=== PATIENT | female | born 1965 | race Caucasian/White ===

== ENCOUNTER → 2016-09-01 | Outpatient (REF) | payer OTHER | LOC: M LAB REF 16:08 | PROVIDERS: ATTEND Physician Assistant | DX: R30.0 Dysuria (principal) ==

== ENCOUNTER → 2016-09-01 | Outpatient (CLI) | payer OTHER ==
--- NOTE | 2016-09-09 00:50 | ECWPNPC ---
PATIENT NAME: ALEJANDRINA VÁZQUEZ : 1965 GENDER: FEMALE VISIT DATE: 09/01/2016 DISCHARGE DATE: 09/01/16 1015 VISIT LOCKED DATE TIME: PHYSICIAN: BERHANE BURDICK RESOURCE: BERHANE BURDICK REASON FOR APPOINTMENT 1. LOW BACK PAIN HISTORY OF PRESENT ILLNESS HISTORY OF PRESENT ILLNESS: PAIN THE PATIENT DESCRIBES THE PAIN... 51 YEAR OLD FEMALE PATIENT WITH HISTORY OF CHRONIC LOW BACK PAIN. PATIENT DESCRIBES THE PAIN ACHING, BURNING, STABBING, THROBBING, SORE, SHOOTING, AND HAVING IT ALL THE TIME WITH A PAIN SCORE OF 8-9/10. PATIENT RECEIVED A SACROILIAC JOINT INJECTION ON 06/21/16 AND STATES THAT THE INJECTION ONLY HELPED THE PATIENT FOR A FEW DAYS AND THE PAIN RETURNED. MRS. VÁZQUEZ REPORTS HAVING SEVERE PAIN IN THE HIP AND DOWN THE LEGS WHICH THE TRANSFORAMINAL HAD HELPED TO REDUCE THAT PAIN. CURRENTLY THE PATIENT IS USING GABAPENTIN AND TIZANIDINE WHICH SHE STATES HELPS WITH PAIN MANAGEMENT. PATIENT HAD A SCRIPT OF 20 TABLETS OF HYDROCODONE WHICH SHE HAD RAN OUT OF SO SHE HAS NOT BEEN USING IT FOR A FEW WEEKS. MRS. VÁZQUEZ STATES THAT PHYSICAL ACTIVITY INCREASES THE PAIN IN HER BACK AND AT THIS TIME THE ONLY THING THAT HELPS WITH THE PAIN IS MEDICATION MANAGEMENT. PATIENT DENIES UNEXPLAINABLE WEIGHT LOSS, FEVER, CHILLS, NEW CHANGES ON HER URINARY OR BOWEL CONTROL. FALL RISK SCREENING: SCREENING :NO FALLS IN THE PAST YEAR CURRENT MEDICATIONS TAKING HYDROCODONE-ACETAMINOPHEN 5-325 MG TABLET 1 TABLET NEEDED ORALLY EVERY DAY FOR PAIN MDD1 TAKING GABAPENTIN 300 MG CAPSULE 1 CAPSULE ORALLY FOUR TIMES DAILY TAKING TIZANIDINE HCL 2 MG TABLET 1 TO 2 TABLET NEEDED ORALLY BEFORE BEDTIME TAKING METROGEL 1 % GEL 1 APPLICATION TO AFFECTED AREA EXTERNALLY FACE ONCE A DAY TAKING VITAMIN D 2000 UNIT TABLET 1 CAPSULE ORALLY ONCE A DAY TAKING PROTOPIC 0.03 % OINTMENT 1 APPLICATION TO AFFECTED AREA EXTERNALLY FINGERS ARMS TWICE A DAY TAKING CLOBETASOL PROPIONATE 0.05 % CREAM 1 APPLICATION TO AFFECTED AREA EXTERNALLY FINGERS ARMS TWICE A DAY NEEDED FOR FLARE-UPS TAKING EPIPEN 1 MG/ML DEVICE DIRECTED INTRAMUSCULAR NEEDED TAKING ALBUTEROL SULFATE HFA 108 (90 BASE) MCG/ACT AEROSOL SOLUTION 2 PUFFS INHALATION FOUR TIMES A DAY NEEDED TAKING MULTIVITAL NATIVE - TABLET 2 CAP ORALLY ONCE DAILY TAKING FOLIC ACID 800 MCG TABLET 1 TABLET ORALLY ONCE A DAY TAKING VITAMIN B12 100 MCG TABLET ORALLY 500 MG ONCE DAILY TAKING CALCIUM CITRATE 250 MG TABLET 4 TABLETS ORALLY 2 TABS AT LUNCH AND 2 TABS AT DINNER TAKING TYLENOL 8 HOUR 650 MG TABLET EXTENDED RELEASE 2 TABLETS NEEDED ORALLY EVERY 8 HRS MEDICATION LIST REVIEWED AND RECONCILED WITH THE PATIENT PAST MEDICAL HISTORY ASTHMA (INACTIVE SINCE CHILDHOOD) ATOPIC DERMATITIS BACK PAIN ALLERGIC RHINITIS, CAUSE UNSPECIFIED OBESITY, UNSPECIFIED UNSPECIFIED SINUSITIS (CHRONIC) UNSPECIFIED VITAMIN D 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 HOSPITALIZATION/MAJOR DIAGNOSTIC PROCEDURE HOSPITALIZATIONS RELATED TO SURGERY AND CHILDBIRTH REVIEW OF SYSTEMS CONSTITUTIONAL: ANY CHANGE IN YOUR MEDICAL CONDITION? NO . CHILLS NO . FEVER NO . INFECTION: DO YOU HAVE NEW INFECTIONS? NO . DO YOU HAVE HISTORY OF MRSA? NO . MUSCULOSKELETAL: ANY NEW PATTERNS OF PAIN OR NUMBNESS? NO . GASTROENTEROLOGY: ANY NEW CHANGE IN BOWEL CONTROL? NO . GENITOURINARY: ANY NEW CHANGE IN BLADDER CONTROL? YES, POSSIBLE UTI AND SEEING DOCTOR TODAY FOR THAT . IS THERE A CHANCE YOU COULD BE ? NO . HEMATOLOGY/LYMPH: DO YOU TAKE ANY BLOOD THINNERS? (FOR EXAMPLE- COUMADIN, PLAVIX, AGGRENOX, PLATEL, PRADAXA, OR XARELTO) NO . WHEN WAS YOUR LAST DOSE? DATE: TIME: . NEUROLOGY: HAVE YOU FALLEN IN THE PAST 6 MONTHS? NO . ANY NEW EXTREMITY NUMBNESS OR WEAKNESS? NO . CARDIOLOGY: DO YOU HAVE A PACEMAKER OR DEFIBRILLATOR? NO . RESPIRATORY: HAVE YOU BEEN SICK IN THE PAST WEEK? NO . FEVER NO . FLU LIKE SYMPTOMS? NO . COUGH NO . INTEGUMENTARY: DO YOU HAVE ANY RASHES OR OPEN SORES? NO . ALLERGIC/IMMUNO: ARE YOU ALLERGIC TO SHELLFISH OR IV DYE? NO . ANY NEW ALLERGIES? NO . PSYCHIATRIC: DO YOU HAVE THOUGHTS OF HURTING YOURSELF OR SOMEONE ELSE? NO . ARE YOU ABUSED, NEGLECTED, OR IN AN UNSAFE ENVIRONMENT? NO . ENDOCRINOLOGY: ARE YOU DIABETIC? YES . OTHER: DO YOU NEED ANY PRESCRIPTIONS? YES . IF YES, PLEASE LIST: HYDROCODONE- BEEN OUT FOR OVER A MONTH- 6 WEEKS PLUS THE PAIN HAS GRADUALLY INTENSIFIED . ANY NEW PROBLEMS WITH YOUR MEDICATIONS? NO . WHEN DID YOU LAST EAT? ____ . WHEN DID YOU LAST DRINK? ____ . WHAT DID YOU LAST DRINK? ____ . NAME OF PERSON DRIVING YOU HOME? ____ . DO YOU HAVE ANY OTHER QUESTIONS OR CONCERNS NO . REVIEWED BY: PROVIDER: BERHANE BURDICK MD . VITAL SIGNS WT 126 LBS, HT 64 IN, BMI 21.63 INDEX, BP 147/75 MM HG, HR 103 /MIN, RR 16 /MIN, TEMP 96.0 F, OXYGEN SAT % 96, NA INITIALS TL 0930, REVIEWED BY: CS. EXAMINATION : PATIENT IS ALERT O X 3 AND COOPERATIVE. TENDERNESS IN THE LOWER BACK AND PARASPINAL MUSCLE GROUP. TENDERNESS IN THE RIGHT SACROILIAC JOINT AREA. MRI DONE ON 09/25/14 SHOWS A LAMINECTOMY AT L5-S1. 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 VÁZQUEZ'S PAIN MANAGEMENT CASE. AT THIS TIME THE PATIENT WILL CONTINUE WITH THE SAME MEDICATION REGIME BEFORE. PATIENT DENIES ABUSE OF ANY MEDICATION, DENIES USE OF ILLEGAL SUBSTANCES, AND STATES SHE IS ONLY USING THE MEDICATION FOR PAIN MANAGEMENT. PATIENT WAS ADVISED TO BRING ALL THE MEDICATIONS TO EACH VISIT IN THEIR ORIGINAL BOTTLES. PATIENT REPORTS ONLY HAVING A BRIEF PERIOD OF PAIN RELIEF FROM THE SACROILIAC JOINT BLOCK. HOWEVER, THE TRANSFORAMINAL THE PATIENT RECEIVED HELPED SIGNIFICANTLY WITH THE PATIENT HIP AND LEG PAIN. I AM GOING TO REQUEST AUTHORIZATION FOR ANOTHER TRANSFORAMINAL AND BOOK AFTER APPROVAL. WE DISCUSSED THE RISKS, BENEFITS, AND ALTERNATIVES OF THE INJECTION AND THE PATIENT WOULD LIKE TO PROCEED. I, EWELINA JOSEPH, DOCUMENTED THE ABOVE INFORMATION ACTING A SCRIBE FOR DR. BURDICK. I, DR. BURDICK, HAVE REVIEWED THE ABOVE DOCUMENT, SCRIBED BY EWELINA JOSEPH, AND I VERIFY THAT IT IS ACCURATE. PROCEDURE CODES FA211 ESTABILISHED PATIENT [facility] CHARGE G8427 DOC MEDS VERIFIED W/PT OR RE G8730 PAIN ASSESS POS TOOL F/U PLAN DOC FOLLOW UP TRANSFORAMINAL AFTER APPROVAL ELECTRONICALLY SIGNED BY BERHANE BURDICK MD ON 09/08/2016 AT 02:29 PM EST DISCLAIMER : THIS IS A VISIT SUMMARY EXTRACTED FROM THE [employer] CHART. IT IS NOT A COPY OF THE [employer] PROGRESS NOTE. VIV
== END ==
LOC: M PAIN 09:00
PROVIDERS: ATTEND Anesthesiology
DX: Z09 Encounter for follow-up examination after completed treatment for conditions other than malignant neoplasm (principal); G89.29 Other chronic pain; M96.1 Postlaminectomy syndrome, not elsewhere classified; M51.16 Intervertebral disc disorders with radiculopathy, lumbar region; M51.17 Intervertebral disc disorders with radiculopathy, lumbosacral region; J30.89 Other allergic rhinitis; E55.9 Vitamin D deficiency, unspecified; R01.1 Cardiac murmur, unspecified; E11.9 Type 2 diabetes mellitus without complications; Z88.8 Allergy status to other drugs, medicaments and biological substances; Z91.018 Allergy to other foods; Z79.891 Long term (current) use of opiate analgesic; Z79.899 Other long term (current) drug therapy

== ENCOUNTER → 2016-09-14 | Outpatient (CLI) | payer BC, OTHER ==
[~2016-09-14] MED LIST: BUPIVACAINE HCL 0.25% 30 ML VIAL As Ordered ONE; ISOVUE-M 300 61% 15ML VIAL (Q9967) As Ordered ONE; LIDOCAINE 1% SDV INJ 30 ML VIAL As Ordered ONE; MIDAZOLAM INJ 2 MG/2 ML VIAL (J2250) As Ordered ONE; dexameTHASONE 10 MG/1 ML VIAL PRES.FREE (J1100) As Ordered ONE; fentaNYL 100 MCG/2 ML INJECTION (J3010) As Ordered ONE
--- NOTE | 2016-09-14 17:15 | REP ---
Partial lumbar spine series: 195 views: History: Transforaminal block for pain. 52 seconds of fluoroscopy time is reported. Findings: A sequence of 195 fluoroscopically obtained intraprocedural spot radiographs document needle position and contrast injection associated with transforaminal block procedure. Signed by Junaid Moncada MD 09/15/2016 08:29 A
--- NOTE | 2016-09-20 23:53 | ECWPNPC ---
PATIENT NAME: ALEJANDRINA VÁZQUEZ : 1965 GENDER: FEMALE VISIT DATE: 09/14/2016 DISCHARGE DATE: 09/14/16 1653 VISIT LOCKED DATE TIME: PHYSICIAN: BERHANE BURDICK RESOURCE: BERHANE BURDICK REASON FOR APPOINTMENT 1. TRANSFORAMINAL HISTORY OF PRESENT ILLNESS HISTORY OF PRESENT ILLNESS: PAIN THE PATIENT DESCRIBES THE PAIN... FALL RISK SCREENING: SCREENING :NO FALLS IN THE PAST YEAR CURRENT MEDICATIONS TAKING GABAPENTIN 300 MG CAPSULE 1 CAPSULE ORALLY FOUR TIMES DAILY FOR PAIN MDD4, NOTES: 09/13/16 AT 2300 TAKING TIZANIDINE HCL 2 MG TABLET 1-2 TABLET NEEDED ORALLY FOR SPASMS AND PAIN BEFORE BEDTIME, NOTES: 09/13/16 AT 2300 TAKING HYDROCODONE-ACETAMINOPHEN 5-325 MG TABLET 1 TABLET NEEDED ORALLY Q5H PRN MDD2, NOTES: 09/13/16 AT 2300 TAKING METROGEL 1 % GEL 1 APPLICATION TO AFFECTED AREA EXTERNALLY FACE ONCE A DAY, NOTES: MONTHS AGO TAKING VITAMIN D 2000 UNIT TABLET 1 CAPSULE ORALLY ONCE A DAY, NOTES: AT 0630 TAKING PROTOPIC 0.03 % OINTMENT 1 APPLICATION TO AFFECTED AREA EXTERNALLY FINGERS ARMS TWICE A DAY, NOTES: MONTHS AGO TAKING CLOBETASOL PROPIONATE 0.05 % CREAM 1 APPLICATION TO AFFECTED AREA EXTERNALLY FINGERS ARMS TWICE A DAY NEEDED FOR FLARE-UPS, NOTES: MONTHS AGO TAKING EPIPEN 1 MG/ML DEVICE DIRECTED INTRAMUSCULAR NEEDED, NOTES: YEARS AGO TAKING ALBUTEROL SULFATE HFA 108 (90 BASE) MCG/ACT AEROSOL SOLUTION 2 PUFFS INHALATION FOUR TIMES A DAY NEEDED, NOTES: NEVER USED TAKING MULTIVITAL [place] TRIBE - TABLET 2 CAP ORALLY ONCE DAILY, NOTES: 09/14/16 AT 0630 TAKING VITAMIN B12 100 MCG TABLET ORALLY 500 MG ONCE DAILY, NOTES: 09/14/16 AT 0630 TAKING CALCIUM CITRATE 250 MG TABLET 4 TABLETS ORALLY 2 TABS AT LUNCH AND 2 TABS AT DINNER, NOTES: 09/14/16 AT 1800 TAKING TYLENOL 8 HOUR 650 MG TABLET EXTENDED RELEASE 2 TABLETS NEEDED ORALLY EVERY 8 HRS, NOTES: MONTH AGO TAKING LEVOTHYROXINE SODIUM 25 MCG TABLET 1 TABLET ON AN EMPTY STOMACH IN THE MORNING ORALLY ONCE A DAY, NOTES: 09/14/16 AT 0530 NOT-TAKING FOLIC ACID 800 MCG TABLET 1 TABLET ORALLY ONCE A DAY MEDICATION LIST REVIEWED AND RECONCILED WITH THE PATIENT PAST MEDICAL HISTORY ASTHMA (INACTIVE SINCE CHILDHOOD) ATOPIC DERMATITIS BACK PAIN ALLERGIC RHINITIS, CAUSE UNSPECIFIED OBESITY, UNSPECIFIED UNSPECIFIED SINUSITIS (CHRONIC) UNSPECIFIED VITAMIN D 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 NEW PATIENT PAIN DIARY TODAY'S VISITNOTES FROM 0-10, WHAT LEVEL IS YOUR PAIN TODAY?0 PAIN CLINIC PFS, CLERGY, PUBLIC HEALTH REFERRALS PFS REFERRAL NEEDED?NO CLERGY REFERRAL NEEDED?NO PUBLIC HEALTH REFERRAL NEEDED?NO WAS THE PROVIDER NOTIFIED OF ANY PERTINENT INFO?NO PFS REFERRAL NEEDED?NO CLERGY REFERRAL NEEDED?NO PUBLIC HEALTH REFERRAL NEEDED?NO WAS THE PROVIDER NOTIFIED OF ANY PERTINENT INFO?NO REVIEW OF SYSTEMS CONSTITUTIONAL: ANY CHANGE IN YOUR MEDICAL CONDITION? NO . CHILLS NO . FEVER NO . INFECTION: DO YOU HAVE NEW INFECTIONS? NO . DO YOU HAVE HISTORY OF MRSA? NO . MUSCULOSKELETAL: ANY NEW PATTERNS OF PAIN OR NUMBNESS? PT STATES THAT PAIN IS NOW RADIATING TO OUTSIDE OF LEG AND HIP AREA. . GASTROENTEROLOGY: ANY NEW CHANGE IN BOWEL CONTROL? NO . GENITOURINARY: ANY NEW CHANGE IN BLADDER CONTROL? NO . IS THERE A CHANCE YOU COULD BE ? NO . HEMATOLOGY/LYMPH: DO YOU TAKE ANY BLOOD THINNERS? (FOR EXAMPLE- COUMADIN, PLAVIX, AGGRENOX, PLATEL, PRADAXA, OR XARELTO) NO . WHEN WAS YOUR LAST DOSE? DATE: TIME: . NEUROLOGY: HAVE YOU FALLEN IN THE PAST 6 MONTHS? NO . ANY NEW EXTREMITY NUMBNESS OR WEAKNESS? NO . CARDIOLOGY: DO YOU HAVE A PACEMAKER OR DEFIBRILLATOR? NO . RESPIRATORY: HAVE YOU BEEN SICK IN THE PAST WEEK? NO . FEVER NO . FLU LIKE SYMPTOMS? NO . COUGH NO . INTEGUMENTARY: DO YOU HAVE ANY RASHES OR OPEN SORES? NO . ALLERGIC/IMMUNO: ARE YOU ALLERGIC TO SHELLFISH OR IV DYE? NO . ANY NEW ALLERGIES? NO . PSYCHIATRIC: DO YOU HAVE THOUGHTS OF HURTING YOURSELF OR SOMEONE ELSE? NO . ARE YOU ABUSED, NEGLECTED, OR IN AN UNSAFE ENVIRONMENT? NO . ENDOCRINOLOGY: ARE YOU DIABETIC? YES, PT STATES THAT SHE MANAGES BLOOD SUGAR WITH ORAL MEDS. . OTHER: DO YOU NEED ANY PRESCRIPTIONS? NO . IF YES, PLEASE LIST: ____ . ANY NEW PROBLEMS WITH YOUR MEDICATIONS? NO . WHEN DID YOU LAST EAT? 09/13/16 10:30PM . WHEN DID YOU LAST DRINK? 09/14/16 7AM . WHAT DID YOU LAST DRINK? WATER . NAME OF PERSON DRIVING YOU HOME? [employer] . DO YOU HAVE ANY OTHER QUESTIONS OR CONCERNS PT STATES THAT SHE CONSTANTLY HAS NIGHTLY LEG AND FOOT CRAMPS. DALY HORSES THAT WAKE HER UP AT NIGHT. . REVIEWED BY: PROVIDER: . VITAL SIGNS WT 127 LBS, HT 64 IN, BMI 21.80 INDEX, BP 118/58 MM HG, HR 56 /MIN, RR 16 /MIN, TEMP 94.7 F, OXYGEN SAT % 94%, NA INITIALS SC 15:02, REVIEWED BY: CS. ASSESSMENTS INTERVERTEBRAL DISC DISORDERS WITH RADICULOPATHY, LUMBOSACRAL REGION - M51.17 (PRIMARY) POSTLAMINECTOMY SYNDROME, NOT ELSEWHERE CLASSIFIED - M96.1 PROCEDURES PN LUMBAR TRANSFORAMINAL BLOCKS PRE PROCEDURE DIAGNOSIS LUMBOSACRAL DISC DISORDER WITH RADICULOPATHY POST PROCEDURE DIAGNOSIS LUMBOSACRAL DISC DISORDER WITH RADICULOPATHY PROCEDURE RIGHT L5 AND RIGHT S1 TRANSFORAMINAL EPIDURAL STEROID INJECTION UNDER FLUOROSCOPIC GUIDANCE SURGEON DR BERHANE BURDICK [facility] SECURITY OFFICER NONE ANESTHESIA LOCAL PRE PROCEDURE NOTE PATIENT WITH HISTORY OF CHRONIC LOW BACK PAIN. I EVALUATE THE PATIENT AND REVIEWED THE CHART. I WENT OVER THE RISKS, ALTERNATIVES, AND BENEFITS ASSOCIATED WITH THIS PROCEDURE. THE PATIENT WOULD LIKE TO PROCEED AND GIVE CONSENT TO PERFORMED THE PROCEDURE. THE PATIENT DENIES UNEXPLAINABLE WEIGHT LOSS, FEVER, CHILLS, OR CHANGES IN URINARY OR BOWEL CONTROL DESCRIPTION OF PROCEDURE THE PATIENT WAS BROUGHT TO THE PROCEDURE ROOM AND PLACED IN THE PRONE POSITION. THE LUMBOSACRAL AREA WAS CLEANED WITH BETADINE SOLUTION AND DRAPED ASEPTICALLY. THE PROCEDURE WAS DONE UNDER STERILE CONDITIONS. I CHECKED LATERALITY AND THE LEVEL WHERE THE PROCEDURE WAS GOING TO BE PERFORMED WITH THE PATIENT AND THE SUPPORTING STAFF AT THE MOMENT OF THE TIME OUT IN THE PROCEDURE ROOM. UNDER FLUOROSCOPIC GUIDANCE, TARGETS WERE SELECTED AT THE RIGHT TRANSFORAMINAL OPENING OF L5 AND S1. TARGET POINT WAS SELECTED AFTER LATERAL ROTATION AND TILT OF THE MAGNIFIER OF THE C-ARM. LIDOCAINE 0.5% WAS USED TO NUMB THE SKIN AND THE SUBCUTANEOUS TISSUE BELOW IT. AN EPIMED INTRODUCER 18-GAUGE WAS ADVANCED UNTIL WE WENT CLOSE TO THE SELECTED TRANSFORAMINAL OPENINGS. AFTER PROPER POSITION OF THE NEEDLES WAS ACHIEVED, A 22-GAUGE EPIMED NEEDLE WAS PLACED INSIDE OF THE INTRODUCER AND ADVANCED TO THE TRANSFORAMINAL OPENING OF THE SELECTED SITES. WHEN PROPER POSITION OF THE NEEDLE WAS ACHIEVED, ISOVUE M DYE 30%, 0.25 ML, WAS INJECTED SHOWING ADEQUATE SPREAD OF THE DYE. THIS WAS DONE UNDER DIGITAL SUBTRACTION AND ANGIOGRAPHY. THERE WAS NO VASCULAR UPDATE. THEN, A SOLUTION OF 2 ML OF BUPIVACAINE 0.25% AND DEXAMETHASONE 10 MG WAS INJECTED AT EACH SITE. THERE WAS NO EVIDENCE OF BLOOD, PARESTHESIA OR CEREBROSPINAL FLUID DURING THE PROCEDURE. THE PATIENT WAS SENT TO THE RECOVERY ROOM. THE PATIENT WAS MOVING THE EXTREMITIES AND DOING WELL. THERE WAS NO COMPLICATION DURING THE PROCEDURE. FLUOROSCOPY TIME WAS 52 SECONDS POST PROCEDURE NOTE THE PROCEDURE DONE WAS DISCUSSED WITH THE PATIENT. THE PATIENT WILL BE SEEN IN A FOLLOW UP IN THE NEXT FEW WEEKS. INSTRUCTIONS WERE GIVEN, QUESTIONS WERE ANSWERED, AND THE PATIENT EXPRESSED UNDERSTANDING AND AGREES WITH THE PLAN. INSTRUCTIONS WERE GIVEN, QUESTIONS WERE ANSWERED, PATIENT REPORTS UNDERSTANDING AND AGREES WITH THE PLAN. I, SP MORFIN, DOCUMENTED THE ABOVE INFORMATION ACTING A SCRIBE FOR DR. BURDICK. I HAVE REVIEWED THE ABOVE DOCUMENT, WRITTEN BY SP MORFIN SCRIBAltagracia AND I VERIFY THAT IT IS ACCURATE. DIAGNOSTIC [facility] FLUORO GUIDANCE (PAIN)[id number] PROCEDURE CODES 12039 INJ FORAMEN EPIDURAL L/S 91069 INJ FORAMEN EPIDURAL ADD-ON 6045F RADXPS IN END [id number] PXD FOLLOW UP 3 WEEKS ELECTRONICALLY SIGNED BY BERHANE BURDICK MD ON 09/20/2016 AT 09:37 PM EST DISCLAIMER : THIS IS A VISIT SUMMARY EXTRACTED FROM THE [employer] CHART. IT IS NOT A COPY OF THE [employer] PROGRESS NOTE. MTDD
== END ==
LOC: M PAIN 14:20
PROVIDERS: ATTEND Anesthesiology
DX: G89.29 Other chronic pain (principal); M51.17 Intervertebral disc disorders with radiculopathy, lumbosacral region; M96.1 Postlaminectomy syndrome, not elsewhere classified; J45.909 Unspecified asthma, uncomplicated; E55.9 Vitamin D deficiency, unspecified; E11.9 Type 2 diabetes mellitus without complications; Z91.018 Allergy to other foods; Z88.5 Allergy status to narcotic agent; Z79.891 Long term (current) use of opiate analgesic; Z79.899 Other long term (current) drug therapy
CPT/HCPCS: 64483; 64484; J1100; J2250; J3010; Q9967

== ENCOUNTER → 2016-09-19 | Outpatient (CLI) | payer BC ==
--- NOTE | 2016-09-19 08:22 | REPMRS ---
Patient History The patient states she had a clinical breast exam in 09/12 No known family history of cancer. Reductions of both breasts, 2002. Digital Woman Screen Mammo: September 19, 2016 - Exam #: [id number] Bilateral CC and MLO view(s) were taken. Technologist: Tri Be, Technologist Prior study comparison: October 07, 2015, digital woman screen mammo performed at [facility]. September 24, 2014, digital woman screen mammo performed at [facility]. September 09, 2013, digital woman screen mammo performed at [facility]. FINDINGS: There are scattered fibroglandular densities. There has been no change in the appearance of the mammogram from the prior studies. There is a mild amount of scattered fibroglandular density which is fairly symmetric. There is no interval development of dominant mass, architectural distortion, or clustered microcalcification suggestive of malignancy. ASSESSMENT: BI-RADS/ACR category 1 mammogram. Negative. Recommendation Routine screening mammogram in 1 year (for women over age 40). This mammogram was interpreted with the aid of an FDA-approved computer-aided dectection system. Electronically Signed By: Gurpreet Moncada MD 09/19/16 0822
== END ==
LOC: M WHC 07:10
PROVIDERS: ATTEND Obstetrics & Gynecology
DX: Z12.31 Encounter for screening mammogram for malignant neoplasm of breast (principal)

== ENCOUNTER → 2016-10-05 | Outpatient (CLI) | payer BC, OTHER ==
--- NOTE | 2016-10-15 00:05 | ECWPNPC ---
PATIENT NAME: ALEJANDRINA VÁZQUEZ : 1965 GENDER: FEMALE VISIT DATE: 10/05/2016 DISCHARGE DATE: 10/05/16 1039 VISIT LOCKED DATE TIME: PHYSICIAN: BERHANE BURDICK RESOURCE: BERHANE BURDICK REASON FOR APPOINTMENT 1. POST PROCEDURE HISTORY OF PRESENT ILLNESS HISTORY OF PRESENT ILLNESS: PAIN THE PATIENT DESCRIBES THE PAIN... 51 YEAR OLD FEMALE PATIENT WITH HISTORY OF CHRONIC BACK PAIN. PATIENT DESCRIBES THE PAIN ACHING, BURNING, SHARP, STABBING, TENDER, THROBBING, SORE, SHOOTING, AND HAVING IT ALL THE TIME WITH A PAIN SCORE OF 9/10 ON TODAY'S VISIT. PATIENT REPORTS THAT SHE HAS PAIN IN HER RIGHT LEG RADIATING FROM HER BACK. PATIENT RECEIVED A TRANSFORAMINAL ON 09/14/2016 AND STATES THAT THE INJECTION DID NOT PROVIDE ANY PAIN RELIEF. PATIENT REPORTS THAT WITH GABAPENTIN SHE DOES NOT LIKE TO TAKE IT DURING THE DAY IT MAKES HER FOGGY AND SLEEPY AND THE HYDROCODONE-ACETAMINOPHEN SHE TAKES AT NIGHT IT HELPS HER SLEEP. PATIENT STATES THAT SOMETIMES SHE DOES HAVE DIFFICULTIES SLEEPING THROUGH THE NIGHT THE PAIN WILL WAKE HER UP. PATIENT DENIES UNEXPLAINABLE WEIGHT LOSS, FEVER, CHILLS, NEW CHANGES ON HER URINARY OR BOWEL CONTROL. FALL RISK SCREENING: SCREENING :NO FALLS IN THE PAST YEAR CURRENT MEDICATIONS TAKING GABAPENTIN 300 MG CAPSULE 1 CAPSULE ORALLY FOUR TIMES DAILY FOR PAIN MDD4, NOTES: 09/13/16 AT 2300 TAKING TIZANIDINE HCL 2 MG TABLET 1-2 TABLET NEEDED ORALLY FOR SPASMS AND PAIN BEFORE BEDTIME, NOTES: 09/13/16 AT 2300 TAKING HYDROCODONE-ACETAMINOPHEN 5-325 MG TABLET 1 TABLET NEEDED ORALLY Q5H PRN MDD2, NOTES: 09/13/16 AT 2300 TAKING METROGEL 1 % GEL 1 APPLICATION TO AFFECTED AREA EXTERNALLY FACE ONCE A DAY, NOTES: MONTHS AGO TAKING VITAMIN D 2000 UNIT TABLET 1 CAPSULE ORALLY ONCE A DAY, NOTES: AT 0630 TAKING PROTOPIC 0.03 % OINTMENT 1 APPLICATION TO AFFECTED AREA EXTERNALLY FINGERS ARMS TWICE A DAY, NOTES: MONTHS AGO TAKING CLOBETASOL PROPIONATE 0.05 % CREAM 1 APPLICATION TO AFFECTED AREA EXTERNALLY FINGERS ARMS TWICE A DAY NEEDED FOR FLARE-UPS, NOTES: MONTHS AGO TAKING EPIPEN 1 MG/ML DEVICE DIRECTED INTRAMUSCULAR NEEDED, NOTES: YEARS AGO TAKING ALBUTEROL SULFATE HFA 108 (90 BASE) MCG/ACT AEROSOL SOLUTION 2 PUFFS INHALATION FOUR TIMES A DAY NEEDED, NOTES: NEVER USED TAKING MULTIVITAL [place] - TABLET 2 CAP ORALLY ONCE DAILY, NOTES: 09/14/16 AT 0630 TAKING VITAMIN B12 100 MCG TABLET ORALLY 500 MG ONCE DAILY, NOTES: 09/14/16 AT 0630 TAKING CALCIUM CITRATE 250 MG TABLET 4 TABLETS ORALLY 2 TABS AT LUNCH AND 2 TABS AT DINNER, NOTES: 09/14/16 AT 1800 TAKING TYLENOL 8 HOUR 650 MG TABLET EXTENDED RELEASE 2 TABLETS NEEDED ORALLY EVERY 8 HRS, NOTES: MONTH AGO TAKING LEVOTHYROXINE SODIUM 25 MCG TABLET 1 TABLET ON AN EMPTY STOMACH IN THE MORNING ORALLY ONCE A DAY, NOTES: 09/14/16 AT 0530 NOT-TAKING FOLIC ACID 800 MCG TABLET 1 TABLET ORALLY ONCE A DAY MEDICATION LIST REVIEWED AND RECONCILED WITH THE PATIENT PAST MEDICAL HISTORY ASTHMA (INACTIVE SINCE CHILDHOOD) ATOPIC DERMATITIS BACK PAIN ALLERGIC RHINITIS, CAUSE UNSPECIFIED OBESITY, UNSPECIFIED UNSPECIFIED SINUSITIS (CHRONIC) UNSPECIFIED VITAMIN D 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 SOCIAL HISTORY GENERAL: TOBACCO USE ARE YOU A:NONSMOKER LEARNING BARRIERS / SPECIAL NEEDS ORIENTED TO PLAN OF CARE: PATIENT, PAIN MANAGEMENT PATIENT, ORIENTED TO PLAN OF CARE: PATIENT, PAIN MANAGEMENT PATIENT. NEW PATIENT PAIN DIARY TODAY'S VISITNOTES FROM 0-10, WHAT LEVEL IS YOUR PAIN TODAY?0 PAIN CLINIC PFS, CLERGY, PUBLIC HEALTH REFERRALS PFS REFERRAL NEEDED?NO CLERGY REFERRAL NEEDED?NO PUBLIC HEALTH REFERRAL NEEDED?NO WAS THE PROVIDER NOTIFIED OF ANY PERTINENT INFO?NO PFS REFERRAL NEEDED?NO CLERGY REFERRAL NEEDED?NO PUBLIC HEALTH REFERRAL NEEDED?NO WAS THE PROVIDER NOTIFIED OF ANY PERTINENT INFO?NO HOSPITALIZATION/MAJOR DIAGNOSTIC PROCEDURE HOSPITALIZATIONS RELATED TO SURGERY AND CHILDBIRTH REVIEW OF SYSTEMS CONSTITUTIONAL: ANY CHANGE IN YOUR MEDICAL CONDITION? NO . CHILLS NO . FEVER NO . INFECTION: DO YOU HAVE NEW INFECTIONS? NO . DO YOU HAVE HISTORY OF MRSA? NO . MUSCULOSKELETAL: ANY NEW PATTERNS OF PAIN OR NUMBNESS? YES NOTES ACHE IN LEFT BUTTOCK AREA SINCE August . . GASTROENTEROLOGY: ANY NEW CHANGE IN BOWEL CONTROL? NO . GENITOURINARY: ANY NEW CHANGE IN BLADDER CONTROL? NO . IS THERE A CHANCE YOU COULD BE ? NO . HEMATOLOGY/LYMPH: DO YOU TAKE ANY BLOOD THINNERS? (FOR EXAMPLE- COUMADIN, PLAVIX, AGGRENOX, PLATEL, PRADAXA, OR XARELTO) NO . WHEN WAS YOUR LAST DOSE? DATE: TIME: . NEUROLOGY: HAVE YOU FALLEN IN THE PAST 6 MONTHS? NO . ANY NEW EXTREMITY NUMBNESS OR WEAKNESS? NO . CARDIOLOGY: DO YOU HAVE A PACEMAKER OR DEFIBRILLATOR? NO . RESPIRATORY: HAVE YOU BEEN SICK IN THE PAST WEEK? NO . FEVER NO . FLU LIKE SYMPTOMS? NO . COUGH NO . INTEGUMENTARY: DO YOU HAVE ANY RASHES OR OPEN SORES? NO . ALLERGIC/IMMUNO: ARE YOU ALLERGIC TO SHELLFISH OR IV DYE? NO . ANY NEW ALLERGIES? NO . PSYCHIATRIC: DO YOU HAVE THOUGHTS OF HURTING YOURSELF OR SOMEONE ELSE? NO . ARE YOU ABUSED, NEGLECTED, OR IN AN UNSAFE ENVIRONMENT? NO . ENDOCRINOLOGY: ARE YOU DIABETIC? YES . OTHER: DO YOU NEED ANY PRESCRIPTIONS? HYDROCODONE . IF YES, PLEASE LIST: ____ . ANY NEW PROBLEMS WITH YOUR MEDICATIONS? NO . WHEN DID YOU LAST EAT? ____ . WHEN DID YOU LAST DRINK? ____ . WHAT DID YOU LAST DRINK? ____ . NAME OF PERSON DRIVING YOU HOME? ____ . DO YOU HAVE ANY OTHER QUESTIONS OR CONCERNS YES TIZANIDINE CHANGED TO AT HS ? WHY WAS 1-2. &QUOT; LEG & FOOT CRAMPS ARE HORRIBLE&QUOT; HYDROCODONE CHANGED-PLEASE DISCUSS. . REVIEWED BY: PROVIDER: BERHANE BURDICK MD . VITAL SIGNS WT 131.4 LBS, HT 64 IN, BMI 22.55 INDEX, BP 126/72 MM HG, HR 60 /MIN, RR 16 /MIN, TEMP 96.2 F, OXYGEN SAT % 99%, NA INITIALS SC 09:29, REVIEWED BY: MLF. EXAMINATION : PATIENT IS ALERT O X 3 AND COOPERATIVE. PATIENT RIGHT LEG IS WEAKER AT FLEXION AND EXTENSION. PATIENT HAS SOME TENDERNESS IN THE LOW BACK PARASPINAL MUSCLE GROUP. MRI DONE ON 09/25/14 SHOWS A LAMINECTOMY AT L5-S1. ASSESSMENTS POSTLAMINECTOMY SYNDROME, NOT ELSEWHERE CLASSIFIED - M96.1 (PRIMARY) INTERVERTEBRAL DISC DISORDERS WITH RADICULOPATHY, LUMBAR REGION - M51.16 INTERVERTEBRAL DISC DISORDERS WITH RADICULOPATHY, LUMBOSACRAL REGION - M51.17 TREATMENT POSTLAMINECTOMY SYNDROME, NOT ELSEWHERE CLASSIFIED REFILL GABAPENTIN CAPSULE, 400 MG, 1 CAPSULE, ORALLY, FOUR TIMES DAILY FOR PAIN MDD4, 30 DAY(S), 120, REFILLS 2, NOTES: 09/13/16 AT 2300 REFILL TIZANIDINE HCL TABLET, 4 MG, 1 TABLET NEEDED, ORALLY, BEFORE BEDTIME MAY REPEAT IN 4 HRS, 30 DAY(S), 60, REFILLS 2, NOTES: 09/13/16 AT 2300 REFILL HYDROCODONE-ACETAMINOPHEN TABLET, 5-325 MG, 1 TABLET NEEDED, ORALLY, Q5H PRN MDD2, 30 DAY(S), 50, REFILLS 0, NOTES: 09/13/16 AT 2300 START TRAMADOL HCL TABLET, 50 MG, 1 TABLET NEEDED, ORALLY FOR PAIN, EVERY 6 HRS MDD3, 30 DAY(S), 50, REFILLS 0 NOTES: WE DISCUSSED SEVERAL ISSUES WITH MS. VÁZQUEZ PAIN MANAGEMENT CASE. AT THIS TIME THE PATIENT WILL RECEIVE A REFILL WITH AN INCREASE DOSAGE OF GABAPENTIN AND TIZANIDINE, DISCUSSED WITH PATIENT THAT THE FOGGY AND SLEEPY FEELING SHE IS EXPERIENCING SHOULD SUBSIDE AND TO LET ME KNOW ON THE NEXT VISIT. PATIENT WILL START ON TRAMADOL TODAY AND WILL ALSO RECEIVE A REFILL OF HYDROCODONE-ACETAMINOPHEN. I ADVISED PATIENT TO TAKE IT SLOW WITH THE TRAMADOL TO SEE HOW HER BODY REACTS WITH IT. I DISCUSSED WITH THE PATIENT ABOUT THE POSSIBILITIES OF A DCS, PATIENT WILL TAKE HOME A DCS DVD TODAY AND TO LET ME KNOW ON THE NEXT VISIT IF THIS IS SOMETHING SHE WOULD LIKE TO PURSUE. I DISCUSSED WITH THE PATIENT THE TRANSFORAMINAL I DID ON 09/14/2016 WAS A RIGHT L5-S1, I DISCUSSED WITH HER THAT WE CAN TRY 3 LEVELS A RIGHT L4, L5 AND S1 TRANSFORAMINAL TO SEE IF SHE FEELS ANY PAIN RELIEF. WE DISCUSSED THE BENEFITS, ALTERNATIVES, AND RISK, AND THE PATIENT WOULD LIKE TO PROCEED. PATIENT WILL BE BOOKED PENDING APPROVAL. INSTRUCTIONS WERE GIVEN, QUESTIONS WERE ANSWERED, PATIENT REPORTS UNDERSTANDING AND AGREES WITH THE PLAN. I, SP MORFIN, DOCUMENTED THE ABOVE INFORMATION ACTING A SCRIBE FOR DR. BURDICK. I HAVE REVIEWED THE ABOVE DOCUMENT, WRITTEN BY SP MORFIN SCRIBE AND I VERIFY THAT IT IS ACCURATE. PREVENTIVE MEDICINE PAIN CLINIC TEACHING: PROCEDURE TEACHING TRANSFORAMINAL EPIDURAL INFORMATION SHEET, TRAMADOL INFO SHEET, AND DCS BOOKLET GIVEN TO PATIENT. . PROCEDURE CODES FA211 ESTABILISHED PATIENT [facility] CHARGE G8730 PAIN ASSESS POS TOOL F/U PLAN DOC G8427 DOC MEDS VERIFIED W/PT OR RE DISPOSITION & COMMUNICATION FOLLOW UP TRANSFORAMINLA PENDING APPROVAL ELECTRONICALLY SIGNED BY BERHANE BURDICK MD ON 10/14/2016 AT 09:07 PM EST DISCLAIMER : THIS IS A VISIT SUMMARY EXTRACTED FROM THE [employer] CHART. IT IS NOT A COPY OF THE [employer] PROGRESS NOTE. VIV
== END ==
LOC: M PAIN 09:00
PROVIDERS: ATTEND Anesthesiology
DX: G89.29 Other chronic pain (principal); M96.1 Postlaminectomy syndrome, not elsewhere classified; M51.16 Intervertebral disc disorders with radiculopathy, lumbar region; M51.17 Intervertebral disc disorders with radiculopathy, lumbosacral region; J32.9 Chronic sinusitis, unspecified; E55.9 Vitamin D deficiency, unspecified; E11.9 Type 2 diabetes mellitus without complications; Z88.5 Allergy status to narcotic agent; Z91.018 Allergy to other foods; Z91.030 Bee allergy status; Z79.891 Long term (current) use of opiate analgesic; Z79.899 Other long term (current) drug therapy; Z86.79 Personal history of other diseases of the circulatory system

== ENCOUNTER → 2016-10-26 | Outpatient (CLI) | payer BC, OTHER ==
--- NOTE | 2016-10-26 16:23 | REP ---
Partial lumbar spine series: 84 views. History: Injection procedure for pain. 1 minute 24 seconds of fluoroscopy time is reported. Findings: A sequence of 84 fluoroscopically obtained intraprocedural digital subtraction angiography images document needle position and contrast injection associated with transforaminal block procedure. Signed by Junaid Moncada MD 10/26/2016 05:00 P
--- NOTE | 2016-10-26 18:44 | REP ---
CT LUMBAR SPINE WITHOUT CONTRAST: HISTORY: Assess for right S1 foraminal bleeding. Status post instrumentation. COMPARISON: None. There is a tiny amount of air density seen in the right L5-S1 foramen. There is no significant bleeding seen at any foraminal level including all lumbar foramina and S1 and S2 foramina. There is a tiny amount of increased density seen adjacent to air density in the right multifidus muscle most consistent with normal blood from an instrumentation tract. This is minimal. IMPRESSION: No evidence of significant bleeding as described above. These findings were discussed with Dr. Shell at the read station at the time of this dictation. Signed by Cali West DO 10/26/2016 07:08 P
== END ==
LOC: M PAIN 13:20
PROVIDERS: ATTEND Anesthesiology
DX: G89.29 Other chronic pain (principal); M96.1 Postlaminectomy syndrome, not elsewhere classified; M51.16 Intervertebral disc disorders with radiculopathy, lumbar region; M51.17 Intervertebral disc disorders with radiculopathy, lumbosacral region; J45.909 Unspecified asthma, uncomplicated; L20.9 Atopic dermatitis, unspecified; E55.9 Vitamin D deficiency, unspecified; R01.1 Cardiac murmur, unspecified; E11.9 Type 2 diabetes mellitus without complications; Z88.5 Allergy status to narcotic agent; Z91.010 Allergy to peanuts; Z91.018 Allergy to other foods; Z91.030 Bee allergy status; Z79.891 Long term (current) use of opiate analgesic; Z79.899 Other long term (current) drug therapy
CPT/HCPCS: 64483; 64484; 72131; J1100; J2250; J3010; Q9967

== ENCOUNTER → 2016-11-02 | Outpatient (CLI) | payer BC, OTHER ==
--- NOTE | 2016-11-11 23:39 | ECWPNPC ---
PATIENT NAME: ALEJANDRINA VÁZQUEZ : 1965 GENDER: FEMALE VISIT DATE: 11/02/2016 DISCHARGE DATE: 11/02/16 1010 VISIT LOCKED DATE TIME: PHYSICIAN: BERHANE BURDICK RESOURCE: BERHANE BURDICK REASON FOR APPOINTMENT 1. MEDS, PROCEDURE POST HISTORY OF PRESENT ILLNESS HISTORY OF PRESENT ILLNESS: PAIN THE PATIENT DESCRIBES THE PAIN... 51 YEAR FEMALE PATIENT WITH HISTORY OF CHRONIC BACK PAIN. PATIENT DESCRIBES THE PAIN ACHING, BURNING, SHARP, STABBING, TENDER, THROBBING, SORE, SHOOTING, AND HAVING IT ALL THE TIME WITH A PAIN SCORE OF 6-7/10 ON TODAY'S VISIT. PATIENT RECEIVED A LUMBAR TRANSFORAMINAL ON 10-26-2016 AND REPORTS THAT HER PAIN STARTED TO COME BACK THE FOLLOWING SUNDAY/SUNDAY AND SHE ONLY HAD PAIN RELIEF FOR A COUPLE OF DAYS. PATIENT STATES THAT SITTING BOTHERS HER MORE THAN STANDING. PATIENT REPORTS THAT SOMETIMES SHE HAS DIFFICULTIES SLEEPING DUE TO THE PAIN WAKING HER UP AT NIGHT MULTIPLE TIMES. PATIENT STATES THAT SHE HAS RADIATING PAIN STARTING FROM HER LOW BACK GOING DOWN THE SIDE OF HER RIGHT LEG ALL THE WAY DOWN TO HER FOOT. PATIENT DENIES UNEXPLAINABLE WEIGHT LOSS, FEVER, CHILLS, NEW CHANGES ON HER URINARY OR BOWEL CONTROL. FALL RISK SCREENING: SCREENING :NO FALLS IN THE PAST YEAR CURRENT MEDICATIONS TAKING GABAPENTIN 400 MG CAPSULE 1 CAPSULE ORALLY FOUR TIMES DAILY FOR PAIN MDD4, NOTES: 10/25/16 AT 2300 TAKING TIZANIDINE HCL 4 MG TABLET 1 TABLET NEEDED ORALLY BEFORE BEDTIME MAY REPEAT IN 4 HRS, NOTES: 10/25/16 AT 2300 TAKING HYDROCODONE-ACETAMINOPHEN 5-325 MG TABLET 1 TABLET NEEDED ORALLY Q5H PRN MDD2, NOTES: WEEK AGO TAKING TRAMADOL HCL 50 MG TABLET 1 TABLET NEEDED ORALLY FOR PAIN EVERY 6 HRS MDD3, NOTES: 10/25/16@2300 TAKING METROGEL 1 % GEL 1 APPLICATION TO AFFECTED AREA EXTERNALLY FACE ONCE A DAY, NOTES: MONTHS AGO TAKING VITAMIN D 2000 UNIT TABLET 1 CAPSULE ORALLY ONCE A DAY, NOTES: 10/26/16@0700 TAKING PROTOPIC 0.03 % OINTMENT 1 APPLICATION TO AFFECTED AREA EXTERNALLY FINGERS ARMS TWICE A DAY, NOTES: MONTHS AGO TAKING CLOBETASOL PROPIONATE 0.05 % CREAM 1 APPLICATION TO AFFECTED AREA EXTERNALLY FINGERS ARMS TWICE A DAY NEEDED FOR FLARE-UPS, NOTES: MONTHS AGO TAKING EPIPEN 1 MG/ML DEVICE DIRECTED INTRAMUSCULAR NEEDED, NOTES: NEVER USED IT TAKING ALBUTEROL SULFATE HFA 108 (90 BASE) MCG/ACT AEROSOL SOLUTION 2 PUFFS INHALATION FOUR TIMES A DAY NEEDED, NOTES: NEVER USED TAKING MULTIVITAL [place] - TABLET 2 CAP ORALLY ONCE DAILY, NOTES: 10/26/16@0700 TAKING VITAMIN B12 100 MCG TABLET ORALLY 500 MG ONCE DAILY, NOTES: 10/26/16@0700 TAKING CALCIUM CITRATE 250 MG TABLET 4 TABLETS ORALLY 2 TABS AT LUNCH AND 2 TABS AT DINNER, NOTES: 10/25/16@1800 TAKING TYLENOL 8 HOUR 650 MG TABLET EXTENDED RELEASE 2 TABLETS NEEDED ORALLY EVERY 8 HRS, NOTES: 10/13/16@1200 TAKING LEVOTHYROXINE SODIUM 25 MCG TABLET 1 TABLET ON AN EMPTY STOMACH IN THE MORNING ORALLY ONCE A DAY, NOTES: 1 WEEK AGO NOT-TAKING FOLIC ACID 800 MCG TABLET 1 TABLET ORALLY ONCE A DAY MEDICATION LIST REVIEWED AND RECONCILED WITH THE PATIENT PAST MEDICAL HISTORY ASTHMA (INACTIVE SINCE CHILDHOOD) ATOPIC DERMATITIS BACK PAIN ALLERGIC RHINITIS, CAUSE UNSPECIFIED OBESITY, UNSPECIFIED UNSPECIFIED SINUSITIS (CHRONIC) UNSPECIFIED VITAMIN D 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 SOCIAL HISTORY GENERAL: TOBACCO USE ARE YOU A:NONSMOKER LEARNING BARRIERS / SPECIAL NEEDS ORIENTED TO PLAN OF CARE: PATIENT, PAIN MANAGEMENT PATIENT, ORIENTED TO PLAN OF CARE: PATIENT, PAIN MANAGEMENT PATIENT. NEW PATIENT PAIN DIARY TODAY'S VISITNOTES FROM 0-10, WHAT LEVEL IS YOUR PAIN TODAY?0 PAIN CLINIC PFS, CLERGY, PUBLIC HEALTH REFERRALS PFS REFERRAL NEEDED?NO CLERGY REFERRAL NEEDED?NO PUBLIC HEALTH REFERRAL NEEDED?NO WAS THE PROVIDER NOTIFIED OF ANY PERTINENT INFO?NO PFS REFERRAL NEEDED?NO CLERGY REFERRAL NEEDED?NO PUBLIC HEALTH REFERRAL NEEDED?NO WAS THE PROVIDER NOTIFIED OF ANY PERTINENT INFO?NO HOSPITALIZATION/MAJOR DIAGNOSTIC PROCEDURE HOSPITALIZATIONS RELATED TO SURGERY AND CHILDBIRTH REVIEW OF SYSTEMS CONSTITUTIONAL: ANY CHANGE IN YOUR MEDICAL CONDITION? NO . CHILLS NO . FEVER NO . INFECTION: DO YOU HAVE NEW INFECTIONS? NO . DO YOU HAVE HISTORY OF MRSA? NO . MUSCULOSKELETAL: ANY NEW PATTERNS OF PAIN OR NUMBNESS? NO . GASTROENTEROLOGY: ANY NEW CHANGE IN BOWEL CONTROL? NO . GENITOURINARY: ANY NEW CHANGE IN BLADDER CONTROL? NO . IS THERE A CHANCE YOU COULD BE ? NO . HEMATOLOGY/LYMPH: DO YOU TAKE ANY BLOOD THINNERS? (FOR EXAMPLE- COUMADIN, PLAVIX, AGGRENOX, PLATEL, PRADAXA, OR XARELTO) NO . WHEN WAS YOUR LAST DOSE? DATE: TIME: . NEUROLOGY: HAVE YOU FALLEN IN THE PAST 6 MONTHS? NO . ANY NEW EXTREMITY NUMBNESS OR WEAKNESS? NO . CARDIOLOGY: DO YOU HAVE A PACEMAKER OR DEFIBRILLATOR? NO . RESPIRATORY: HAVE YOU BEEN SICK IN THE PAST WEEK? NO . FEVER NO . FLU LIKE SYMPTOMS? NO . COUGH NO . INTEGUMENTARY: DO YOU HAVE ANY RASHES OR OPEN SORES? NO . ALLERGIC/IMMUNO: ARE YOU ALLERGIC TO SHELLFISH OR IV DYE? NO . ANY NEW ALLERGIES? NO . PSYCHIATRIC: DO YOU HAVE THOUGHTS OF HURTING YOURSELF OR SOMEONE ELSE? NO . ARE YOU ABUSED, NEGLECTED, OR IN AN UNSAFE ENVIRONMENT? NO . ENDOCRINOLOGY: ARE YOU DIABETIC? YES . OTHER: DO YOU NEED ANY PRESCRIPTIONS? YES . IF YES, PLEASE LIST: ____TRAMADOL,TIZANTIDINE . ANY NEW PROBLEMS WITH YOUR MEDICATIONS? NO . WHEN DID YOU LAST EAT? ____ . WHEN DID YOU LAST DRINK? ____ . WHAT DID YOU LAST DRINK? ____ . NAME OF PERSON DRIVING YOU HOME? ____ . DO YOU HAVE ANY OTHER QUESTIONS OR CONCERNS NO . REVIEWED BY: PROVIDER: BERHANE BURDICK MD . VITAL SIGNS WT 130 LBS, HT 64 IN, BMI 22.31 INDEX, BP 133/73 MM HG, HR 62 /MIN, RR 16 /MIN, TEMP 96.2 F, OXYGEN SAT % 100, [place] INITIALS TL 0851, REVIEWED BY: VD. EXAMINATION : PATIENT IS ALERT O X 3 AND COOPERATIVE. PATIENT RIGHT LEG IS WEAKER AT FLEXION AND EXTENSION. PATIENT HAS SOME TENDERNESS IN THE LOW BACK PARASPINAL MUSCLE GROUP. MRI DONE ON 09/25/14 SHOWS A LAMINECTOMY AT L5-S1. ASSESSMENTS POSTLAMINECTOMY SYNDROME, NOT ELSEWHERE CLASSIFIED - M96.1 (PRIMARY) INTERVERTEBRAL DISC DISORDERS WITH RADICULOPATHY, LUMBAR REGION - M51.16 INTERVERTEBRAL DISC DISORDERS WITH RADICULOPATHY, LUMBOSACRAL REGION - M51.17 TREATMENT POSTLAMINECTOMY SYNDROME, NOT ELSEWHERE CLASSIFIED REFILL GABAPENTIN CAPSULE, 400 MG, 1 CAPSULE, ORALLY, FOUR TIMES DAILY FOR PAIN MDD4, 30 DAY(S), 120, REFILLS 2, NOTES: 10/25/16 AT 2300 REFILL TIZANIDINE HCL TABLET, 4 MG, 1 TABLET NEEDED, ORALLY, BEFORE BEDTIME MAY REPEAT IN 4 HRS, 30 DAY(S), 60, REFILLS 2, NOTES: 10/25/16 AT 2300 START TRAMADOL HCL TABLET, 50 MG, 1 TABLET NEEDED, ORALLY ( CODE D FOR CHRONIC PAIN), EVERY 6 HRS PRN FOR PAIN MDD3, 60 DAYS, 160, REFILLS 0 NOTES: WE DISCUSSED SEVERAL ISSUES WITH MS. VÁZQUEZ PAIN MANAGEMENT CASE. AT THIS TIME I WILL REFILL GABAPENTIN AND TIZANIDINE AND HAVE THE PATIENT START ON TRAMADOL. PATIENT WILL SIGN THE NARCOTIC AGREEMENT TODAY. DUE TO THE PATIENT GETTING LITTLE PAIN RELIEF FROM THE INJECTIONS, I DISCUSSED IN DETAIL ABOUT PROCEEDING WITH A DORSAL COLUMN STIMULATOR. INFORMED THE PATIENT THAT THEY ARE THREE COMPANIES THAT OFFER A DORSAL COLUMN, I ADVISED THE PATIENT TO THINK OVER WHICH COMPANY SHE MAY PREFER. INFORMED THE PATIENT IN ORDER TO PROCEED WITH A DCS I WILL NEED A PSYCHOLOGICAL EVALUATION DONE AND CURRENT MRI OF THE THORACIC AND LUMBAR SPINE. INFORMED PATIENT THAT WE CAN SEND HER TO EITHER THE PSYCHOLOGIST IN [place] OR [place]. PATIENT WOULD PREFER TO GO TO [place] FOR THE EVALUATION. INFORMED THE PATIENT THAT ONCE WE HAVE THE EVALUATIONS, MRIS, AND AUTHORIZATION, THEN WE CAN PROCEED WITH A TRIAL AND DEPENDING IN THE PAIN RELIEF SHE EXPERIENCES AND IMPROVEMENT IN [employer], THEN WE CAN REQUEST AUTH FOR A PERMANENT. DISCUSSED WITH THE PATIENT THAT I WILL ORDER MRIS OF THE THORACIC AND LUMBAR SPINE TODAY, AND I WILL REQUEST AUTHORIZATION FOR THE PSYCHOLOGICAL EVALUATION. PATIENT WILL FOLLOW UP WITH ME IN 6 WEEKS. INSTRUCTIONS WERE GIVEN, QUESTIONS WERE ANSWERED, PATIENT REPORTS UNDERSTANDING AND AGREES WITH THE PLAN. I, SP MORFIN, DOCUMENTED THE ABOVE INFORMATION ACTING A SCRIBE FOR DR. BURDICK. I HAVE REVIEWED THE ABOVE DOCUMENT, WRITTEN BY SP PEREZ AND I VERIFY THAT IT IS ACCURATE. PROCEDURE CODES FA211 ESTABILISHED PATIENT [facility] CHARGE G8730 PAIN ASSESS POS TOOL F/U PLAN DOC G8427 DOC MEDS VERIFIED W/PT OR RE DISPOSITION & COMMUNICATION FOLLOW UP 6 WEEKS ELECTRONICALLY SIGNED BY BERHANE BURDICK MD ON 11/11/2016 AT 10:21 PM EDT DISCLAIMER : THIS IS A VISIT SUMMARY EXTRACTED FROM THE [employer] CHART. IT IS NOT A COPY OF THE [employer] PROGRESS NOTE. DEBORAHD
== END ==
LOC: M PAIN 08:40
PROVIDERS: ATTEND Anesthesiology
DX: M96.1 Postlaminectomy syndrome, not elsewhere classified (principal); M51.16 Intervertebral disc disorders with radiculopathy, lumbar region; M51.17 Intervertebral disc disorders with radiculopathy, lumbosacral region; J45.909 Unspecified asthma, uncomplicated; E55.9 Vitamin D deficiency, unspecified; E11.9 Type 2 diabetes mellitus without complications; Z88.5 Allergy status to narcotic agent; Z91.010 Allergy to peanuts; Z91.018 Allergy to other foods; Z91.030 Bee allergy status; Z79.891 Long term (current) use of opiate analgesic; Z79.899 Other long term (current) drug therapy

== ENCOUNTER → 2016-11-13 | Outpatient (CLI) | payer BC, OTHER ==
[2016-11-13 13:38] LABS: BLOOD UREA NITROGEN 11 MG/DL (7-18); CREATININE FOR GFR 0.92 MG/DL (0.55-1.02); GLOMERULAR FILTRATION RATE > 60.0 (>51)
== END ==
LOC: M SMT 08:15
PROVIDERS: ATTEND Anesthesiology
DX: E03.9 Hypothyroidism, unspecified (principal)

== ENCOUNTER → 2016-11-13 | Outpatient (CLI) | payer BC, OTHER ==
[2016-11-13 13:51] LABS: FREE T4 0.96 NG/DL (0.76-1.46)
== END ==
LOC: M SMT 08:18
PROVIDERS: ATTEND Physician Assistant
DX: E03.9 Hypothyroidism, unspecified (principal)

== ENCOUNTER → 2016-12-12 | Outpatient (CLI) | payer OTHER ==
--- NOTE | 2016-12-18 00:28 | ECWPNPC ---
PATIENT NAME: ALEJANDRINA VÁZQUEZ : 1965 GENDER: FEMALE VISIT DATE: 12/12/2016 DISCHARGE DATE: 12/12/16 1408 VISIT LOCKED DATE TIME: PHYSICIAN: BERHANE BURDICK RESOURCE: BERHANE BURDICK REASON FOR APPOINTMENT 1. LOW BACK PAIN HISTORY OF PRESENT ILLNESS HISTORY OF PRESENT ILLNESS: PAIN THE PATIENT DESCRIBES THE PAIN... 51 YEAR OLD MALE PATIENT WITH HISTORY OF CHRONIC LOW BACK PAIN. PATIENT DESCRIBES THE PAIN ACHING, BURNING, SHARP, STABBOMG, TENDER, THROBBING, SORE, SHOOTING AND HAVING IT ALL THE TIME WITH A PAIN SCORE OF 7-8/10. MRS VÁZQUEZ STATES THAT SHE RECEIVED HER THORACIC AND LUMBAR MRI FOR THE DCS. PATIENT HAS NOT HEARD BACK ON THE PSYCHOLOGICAL EVALUATION AT THIS TIME. PATIENT WOULD LIKE TO MOVE FORWARD WITH THE DCS WITH [employer]. CURRENTLY THE PATIENT IS USING TRAMADOL, HYDROCODONE, AND GABAPENTIN WHICH SHE STATES KEEPS HER MOBILE AND FUNCTIONAL. PATIENT STATES THAT ANY TYPE OF ACTIVITY INCLUDING WALKING, STANDING, AND SITTING FOR ANY LENGTH OF TIME INCREASES THE PAIN IN THE LOWER BACK AND AT THIS TIME MEDICATION KEEPS HER FUNCTIONAL. MRS. VÁZQUEZ STATES THAT INTERVENTIONS ONLY GIVES HER MINIMAL RELIEF FOR A DAY OR TWO. PATIENT DENIES UNEXPLAINABLE WEIGHT LOSS, FEVER, CHILLS, NEW CHANGES ON HER URINARY OR BOWEL CONTROL. FALL RISK SCREENING: SCREENING :NO FALLS IN THE PAST YEAR CURRENT MEDICATIONS TAKING HYDROCODONE-ACETAMINOPHEN 5-325 MG TABLET 1 TABLET NEEDED ORALLY Q5H PRN MDD2 TAKING METROGEL 1 % GEL 1 APPLICATION TO AFFECTED AREA EXTERNALLY FACE ONCE A DAY, NOTES: MONTHS AGO TAKING VITAMIN D 2000 UNIT TABLET 1 CAPSULE ORALLY ONCE A DAY TAKING PROTOPIC 0.03 % OINTMENT 1 APPLICATION TO AFFECTED AREA EXTERNALLY FINGERS ARMS TWICE A DAY, NOTES: MONTHS AGO TAKING CLOBETASOL PROPIONATE 0.05 % CREAM 1 APPLICATION TO AFFECTED AREA EXTERNALLY FINGERS ARMS TWICE A DAY NEEDED FOR FLARE-UPS, NOTES: MONTHS AGO TAKING EPIPEN 1 MG/ML DEVICE DIRECTED INTRAMUSCULAR NEEDED, NOTES: NEVER USED IT TAKING ALBUTEROL SULFATE HFA 108 (90 BASE) MCG/ACT AEROSOL SOLUTION 2 PUFFS INHALATION FOUR TIMES A DAY NEEDED, NOTES: NEVER USED TAKING MULTIVITAL MORONGO - TABLET 2 CAP ORALLY ONCE DAILY TAKING VITAMIN B12 100 MCG TABLET ORALLY 500 MG ONCE DAILY TAKING CALCIUM CITRATE 250 MG TABLET 4 TABLETS ORALLY 2 TABS AT LUNCH AND 2 TABS AT DINNER TAKING TYLENOL 8 HOUR 650 MG TABLET EXTENDED RELEASE 2 TABLETS NEEDED ORALLY EVERY 8 HRS TAKING LEVOTHYROXINE SODIUM 50 MCG TABLET 1 TABLET ON AN EMPTY STOMACH IN THE MORNING ORALLY ONCE A DAY TAKING GABAPENTIN 400 MG CAPSULE 1 CAPSULE ORALLY FOUR TIMES DAILY FOR PAIN MDD4 TAKING TIZANIDINE HCL 4 MG TABLET 1 TABLET NEEDED ORALLY BEFORE BEDTIME MAY REPEAT IN 4 HRS TAKING TRAMADOL HCL 50 MG TABLET 1 TABLET NEEDED ORALLY ( CODE D FOR CHRONIC PAIN) EVERY 6 HRS PRN FOR PAIN MDD3 NOT-TAKING FOLIC ACID 800 MCG TABLET 1 TABLET ORALLY ONCE A DAY DISCONTINUED TRAMADOL HCL 50 MG TABLET 1 TABLET NEEDED ORALLY FOR PAIN EVERY 6 HRS MDD3 MEDICATION LIST REVIEWED AND RECONCILED WITH THE PATIENT PAST MEDICAL HISTORY ASTHMA (INACTIVE SINCE CHILDHOOD) ATOPIC DERMATITIS BACK PAIN ALLERGIC RHINITIS, CAUSE UNSPECIFIED OBESITY, UNSPECIFIED UNSPECIFIED SINUSITIS (CHRONIC) UNSPECIFIED VITAMIN D 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 SOCIAL HISTORY GENERAL: PAIN CLINIC PFS, CLERGY, PUBLIC HEALTH REFERRALS CLERGY REFERRAL NEEDED?NO WAS THE PROVIDER NOTIFIED OF ANY PERTINENT INFO?NO PFS REFERRAL NEEDED?NO PUBLIC HEALTH REFERRAL NEEDED?NO PATIENT: ____. HOSPITALIZATION/MAJOR DIAGNOSTIC PROCEDURE HOSPITALIZATIONS RELATED TO SURGERY AND CHILDBIRTH REVIEW OF SYSTEMS CONSTITUTIONAL: ANY CHANGE IN YOUR MEDICAL CONDITION? NO . CHILLS NO . FEVER NO . INFECTION: DO YOU HAVE NEW INFECTIONS? NO . DO YOU HAVE HISTORY OF MRSA? NO . MUSCULOSKELETAL: ANY NEW PATTERNS OF PAIN OR NUMBNESS? NO . GASTROENTEROLOGY: ANY NEW CHANGE IN BOWEL CONTROL? NO . GENITOURINARY: ANY NEW CHANGE IN BLADDER CONTROL? NO . IS THERE A CHANCE YOU COULD BE ? NO . HEMATOLOGY/LYMPH: DO YOU TAKE ANY BLOOD THINNERS? (FOR EXAMPLE- COUMADIN, PLAVIX, AGGRENOX, PLATEL, PRADAXA, OR XARELTO) NO . WHEN WAS YOUR LAST DOSE? DATE: TIME: . NEUROLOGY: HAVE YOU FALLEN IN THE PAST 6 MONTHS? NO . ANY NEW EXTREMITY NUMBNESS OR WEAKNESS? NO . CARDIOLOGY: DO YOU HAVE A PACEMAKER OR DEFIBRILLATOR? NO . RESPIRATORY: HAVE YOU BEEN SICK IN THE PAST WEEK? NO . FEVER NO . FLU LIKE SYMPTOMS? NO . COUGH NO . INTEGUMENTARY: DO YOU HAVE ANY RASHES OR OPEN SORES? NO . ALLERGIC/IMMUNO: ARE YOU ALLERGIC TO SHELLFISH OR IV DYE? NO . ANY NEW ALLERGIES? NO . PSYCHIATRIC: DO YOU HAVE THOUGHTS OF HURTING YOURSELF OR SOMEONE ELSE? NO . ARE YOU ABUSED, NEGLECTED, OR IN AN UNSAFE ENVIRONMENT? NO . ENDOCRINOLOGY: ARE YOU DIABETIC? YES . OTHER: DO YOU NEED ANY PRESCRIPTIONS? YES . IF YES, PLEASE LIST: TRAMADOL, HYDROCODONE/ACETAMINOPHEN LAST REFILL FOR GABAPENTIN 12-12-16 . ANY NEW PROBLEMS WITH YOUR MEDICATIONS? NO . WHEN DID YOU LAST EAT? ____ . WHEN DID YOU LAST DRINK? ____ . WHAT DID YOU LAST DRINK? ____ . NAME OF PERSON DRIVING YOU HOME? ____ . DO YOU HAVE ANY OTHER QUESTIONS OR CONCERNS NO . REVIEWED BY: PROVIDER: BERHANE BURDICK MD . VITAL SIGNS WT 130.8 LBS, HT 64 IN, BMI 22.45 INDEX, BP 130/62 MM HG, HR 64 /MIN, RR 16 /MIN, TEMP 98.8 F, OXYGEN SAT % 98%, NA INITIALS SC 13:25, REVIEWED BY: CM. EXAMINATION : PATIENT IS ALERT O X 3 AND COOPERATIVE. PATIENT RIGHT LEG IS WEAKER AT FLEXION AND EXTENSION. PATIENT HAS SOME TENDERNESS IN THE LOW BACK PARASPINAL MUSCLE GROUP. MRI DONE ON 09/25/14 SHOWS A LAMINECTOMY AT L5-S1. MRI OF THE THORACIC SPINE DONE ON 11/21/16 SHOWS ENOUGH ROOM FOR THE LEADS TO PASS. ASSESSMENTS POSTLAMINECTOMY SYNDROME, NOT ELSEWHERE CLASSIFIED - M96.1 (PRIMARY) INTERVERTEBRAL DISC DISORDERS WITH RADICULOPATHY, LUMBAR REGION - M51.16 INTERVERTEBRAL DISC DISORDERS WITH RADICULOPATHY, LUMBOSACRAL REGION - M51.17 TREATMENT POSTLAMINECTOMY SYNDROME, NOT ELSEWHERE CLASSIFIED REFILL HYDROCODONE-ACETAMINOPHEN TABLET, 5-325 MG, 1 TABLET NEEDED, ORALLY (CODE D FOR CHRONIC PAIN), Q5H PRN MDD2, 60 DAYS, 100, REFILLS 0 REFILL GABAPENTIN CAPSULE, 400 MG, 1 CAPSULE, ORALLY, FOUR TIMES DAILY FOR PAIN MDD4, 30 DAY(S), 120, REFILLS 2 REFILL TIZANIDINE HCL TABLET, 4 MG, 1 TABLET NEEDED, ORALLY, BEFORE BEDTIME MAY REPEAT IN 4 HRS, 30 DAY(S), 60, REFILLS 2 REFILL TRAMADOL HCL TABLET, 50 MG, 1 TABLET NEEDED, ORALLY ( CODE D FOR CHRONIC PAIN), EVERY 6 HRS PRN FOR PAIN MDD3, 60 DAYS, 160, REFILLS 0 NOTES: WE DISCUSSED SEVERAL ISSUES WITH MRS. VÁZQUEZ'S PAIN MANAGEMENT CASE. AT THIS TIME THE PATIENT WILL CONTINUE WITH THE SAME MEDICATION REGIME BEFORE. PATIENT DENIES ABUSE OF ANY MEDICATION, DENIES USE OF ILLEGAL SUBSTANCES, AND STATES THAT SHE IS ONLY USING THE MEDICATION FOR PAIN MANAGEMENT. PATIENT REPORTS SHE WOULD LIKE TO MOVE FROWARD WITH THE DCS AT THIS TIME. PATIENT WILL NEED TO RECEIVE A PSYCHOLOGICAL EVALUATION BEFORE REQUESTING AUTHORIZATION. ONCE WE HAVE THE PSYCHOLOGICAL REPORT AND IT HAS BEEN REVIEWED WE WILL REQUEST AUTHORIZATION FOR THE TRIAL. PATIENT WILL RETURN TO THE CLINIC IN 6 WEEKS TO DISCUSS PROGRESS THAT HAS BEEN MADE. INSTRUCTIONS WERE GIVEN, QUESTIONS WERE ANSWERED, PATIENT REPORTS UNDERSTANDING AND AGREES WITH THE PLAN. I, EWELINA JOSEPH, DOCUMENTED THE ABOVE INFORMATION ACTING A SCRIBE FOR DR. BURDICK. I HAVE REVIEWED THE ABOVE DOCUMENT, WRITTEN BY EWELINA PEREZ AND I VERIFY THAT IT IS ACCURATE. PROCEDURE CODES FA211 ESTABILISHED PATIENT [facility] CHARGE G8427 DOC MEDS VERIFIED W/PT OR RE G5526 PAIN ASSESS POS TOOL F/U PLAN DOC DISPOSITION & COMMUNICATION FOLLOW UP 7 WEEKS ELECTRONICALLY SIGNED BY BERHANE BURDICK MD ON 12/17/2016 AT 04:59 PM EDT DISCLAIMER : THIS IS A VISIT SUMMARY EXTRACTED FROM THE [employer] CHART. IT IS NOT A COPY OF THE [employer] PROGRESS NOTE. VIV
== END ==
LOC: M PAIN 13:00
PROVIDERS: ATTEND Anesthesiology
DX: M96.1 Postlaminectomy syndrome, not elsewhere classified (principal); M51.16 Intervertebral disc disorders with radiculopathy, lumbar region; M51.17 Intervertebral disc disorders with radiculopathy, lumbosacral region; J32.9 Chronic sinusitis, unspecified; E55.9 Vitamin D deficiency, unspecified; Z91.010 Allergy to peanuts; E11.9 Type 2 diabetes mellitus without complications; Z88.5 Allergy status to narcotic agent; Z91.018 Allergy to other foods; Z91.030 Bee allergy status; Z79.899 Other long term (current) drug therapy

== ENCOUNTER → 2017-01-26 | Outpatient (CLI) | payer OTHER ==
--- NOTE | 2017-02-07 00:58 | ECWPNPC ---
PATIENT NAME: ALEJANDRINA VÁZQUEZ : 1965 GENDER: FEMALE VISIT DATE: 01/26/2017 DISCHARGE DATE: 01/26/17 1441 VISIT LOCKED DATE TIME: PHYSICIAN: BERHANE BURDICK RESOURCE: BERHANE BURDICK REASON FOR APPOINTMENT 1. PRE-OP DCS HISTORY OF PRESENT ILLNESS HISTORY OF PRESENT ILLNESS: PAIN THE PATIENT DESCRIBES THE PAIN... 52 YEAR OLD MALE PATIENT WITH HISTORY OF CHRONIC LOW BACK PAIN. PATIENT DESCRIBES THE PAIN ACHING, BURNING, SHARP, STABBING, TENDER, THROBBING, SORE, SHOOTING, AND HAVING IT ALL THE TIME WITH A PAIN SCORE OF 7-8/10 ON TODAY'S VISIT. PATIENT REPORTS THAT SHE ALREADY SAW THE PSYCHOLOGIST FOR THE EVALUATION, AND WOULD LIKE TO PROCEED WITH THE [employer] TRIAL. PATIENT DENIES UNEXPLAINABLE WEIGHT LOSS, FEVER, CHILLS, NEW CHANGES ON HER URINARY OR BOWEL CONTROL. FALL RISK SCREENING: SCREENING :NO FALLS IN THE PAST YEAR CURRENT MEDICATIONS TAKING METROGEL 1 % GEL 1 APPLICATION TO AFFECTED AREA EXTERNALLY FACE ONCE A DAY, NOTES: MONTHS AGO TAKING VITAMIN D 2000 UNIT TABLET 1 CAPSULE ORALLY ONCE A DAY TAKING PROTOPIC 0.03 % OINTMENT 1 APPLICATION TO AFFECTED AREA EXTERNALLY FINGERS ARMS TWICE A DAY, NOTES: MONTHS AGO TAKING CLOBETASOL PROPIONATE 0.05 % CREAM 1 APPLICATION TO AFFECTED AREA EXTERNALLY FINGERS ARMS TWICE A DAY NEEDED FOR FLARE-UPS, NOTES: MONTHS AGO TAKING EPIPEN 1 MG/ML DEVICE DIRECTED INTRAMUSCULAR NEEDED, NOTES: NEVER USED IT TAKING ALBUTEROL SULFATE HFA 108 (90 BASE) MCG/ACT AEROSOL SOLUTION 2 PUFFS INHALATION FOUR TIMES A DAY NEEDED, NOTES: NEVER USED TAKING MULTIVITAL TE-MOAK - TABLET 2 CAP ORALLY ONCE DAILY TAKING VITAMIN B12 100 MCG TABLET ORALLY 500 MG ONCE DAILY TAKING CALCIUM CITRATE 250 MG TABLET 4 TABLETS ORALLY 2 TABS AT LUNCH AND 2 TABS AT DINNER TAKING TYLENOL 8 HOUR 650 MG TABLET EXTENDED RELEASE 2 TABLETS NEEDED ORALLY EVERY 8 HRS TAKING LEVOTHYROXINE SODIUM 50 MCG TABLET 1 TABLET ON AN EMPTY STOMACH IN THE MORNING ORALLY ONCE A DAY TAKING HYDROCODONE-ACETAMINOPHEN 5-325 MG TABLET 1 TABLET NEEDED ORALLY (CODE D FOR CHRONIC PAIN) Q5H PRN MDD2 TAKING GABAPENTIN 400 MG CAPSULE 1 CAPSULE ORALLY FOUR TIMES DAILY FOR PAIN MDD4 TAKING TIZANIDINE HCL 4 MG TABLET 1 TABLET NEEDED ORALLY BEFORE BEDTIME MAY REPEAT IN 4 HRS TAKING TRAMADOL HCL 50 MG TABLET 1 TABLET NEEDED ORALLY ( CODE D FOR CHRONIC PAIN) EVERY 6 HRS PRN FOR PAIN MDD3 NOT-TAKING FOLIC ACID 800 MCG TABLET 1 TABLET ORALLY ONCE A DAY MEDICATION LIST REVIEWED AND RECONCILED WITH THE PATIENT PAST MEDICAL HISTORY ASTHMA (INACTIVE SINCE CHILDHOOD) ATOPIC DERMATITIS BACK PAIN ALLERGIC RHINITIS, CAUSE UNSPECIFIED OBESITY, UNSPECIFIED UNSPECIFIED SINUSITIS (CHRONIC) UNSPECIFIED VITAMIN D 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 SOCIAL HISTORY GENERAL: PAIN CLINIC PFS, CLERGY, PUBLIC HEALTH REFERRALS CLERGY REFERRAL NEEDED?NO WAS THE PROVIDER NOTIFIED OF ANY PERTINENT INFO?NO PFS REFERRAL NEEDED?NO PUBLIC HEALTH REFERRAL NEEDED?NO PATIENT: ____. HOSPITALIZATION/MAJOR DIAGNOSTIC PROCEDURE HOSPITALIZATIONS RELATED TO SURGERY AND CHILDBIRTH REVIEW OF SYSTEMS CONSTITUTIONAL: ANY CHANGE IN YOUR MEDICAL CONDITION? NO . CHILLS NO . FEVER NO . INFECTION: DO YOU HAVE NEW INFECTIONS? NO . DO YOU HAVE HISTORY OF MRSA? NO . MUSCULOSKELETAL: ANY NEW PATTERNS OF PAIN OR NUMBNESS? PAIN AND NUMBNESS RIGHT FOOT. STARTING TO GET LEFT SIDED BACK FATIGUE. . GASTROENTEROLOGY: ANY NEW CHANGE IN BOWEL CONTROL? NO . GENITOURINARY: ANY NEW CHANGE IN BLADDER CONTROL? NO . IS THERE A CHANCE YOU COULD BE ? NO . HEMATOLOGY/LYMPH: DO YOU TAKE ANY BLOOD THINNERS? (FOR EXAMPLE- COUMADIN, PLAVIX, AGGRENOX, PLATEL, PRADAXA, OR XARELTO) NO . WHEN WAS YOUR LAST DOSE? DATE: TIME: . NEUROLOGY: HAVE YOU FALLEN IN THE PAST 6 MONTHS? NO . ANY NEW EXTREMITY NUMBNESS OR WEAKNESS? NO . CARDIOLOGY: DO YOU HAVE A PACEMAKER OR DEFIBRILLATOR? NO . RESPIRATORY: HAVE YOU BEEN SICK IN THE PAST WEEK? NO . FEVER NO . FLU LIKE SYMPTOMS? NO . COUGH NO . INTEGUMENTARY: DO YOU HAVE ANY RASHES OR OPEN SORES? NO . ALLERGIC/IMMUNO: ARE YOU ALLERGIC TO SHELLFISH OR IV DYE? NO . ANY NEW ALLERGIES? NO . PSYCHIATRIC: DO YOU HAVE THOUGHTS OF HURTING YOURSELF OR SOMEONE ELSE? NO . ARE YOU ABUSED, NEGLECTED, OR IN AN UNSAFE ENVIRONMENT? NO . ENDOCRINOLOGY: ARE YOU DIABETIC? YES,DIET CONTROLLED . OTHER: DO YOU NEED ANY PRESCRIPTIONS? YES . IF YES, PLEASE LIST: 15 DAYS LEFT OF TIZANIDINE AND GABAPENTIN AND 5 DAYS LEFT OF HYDROCODONE . ANY NEW PROBLEMS WITH YOUR MEDICATIONS? NO . WHEN DID YOU LAST EAT? ____ . WHEN DID YOU LAST DRINK? ____ . WHAT DID YOU LAST DRINK? ____ . NAME OF PERSON DRIVING YOU HOME? ____ . DO YOU HAVE ANY OTHER QUESTIONS OR CONCERNS NO . REVIEWED BY: PROVIDER: BERHANE BURDICK MD . VITAL SIGNS WT 127 LBS, HT 64 IN, BMI 21.80 INDEX, BP 127/85 MM HG, HR 79 /MIN, RR 16 /MIN, TEMP 98.4 F, OXYGEN SAT % 100%, NA INITIALS SC 13:42, REVIEWED BY: AD. EXAMINATION : PATIENT IS ALERT O X 3 AND COOPERATIVE. PATIENT RIGHT LEG IS WEAKER AT FLEXION AND EXTENSION. PATIENT HAS SOME TENDERNESS IN THE LOW BACK PARASPINAL MUSCLE GROUP. MRI DONE ON 09/25/14 SHOWS A LAMINECTOMY AT L5-S1. MRI OF THE THORACIC SPINE DONE ON 11/21/16 SHOWS ENOUGH ROOM FOR THE LEADS TO PASS. ASSESSMENTS POSTLAMINECTOMY SYNDROME, NOT ELSEWHERE CLASSIFIED - M96.1 (PRIMARY) INTERVERTEBRAL DISC DISORDERS WITH RADICULOPATHY, LUMBAR REGION - M51.16 INTERVERTEBRAL DISC DISORDERS WITH RADICULOPATHY, LUMBOSACRAL REGION - M51.17 TREATMENT POSTLAMINECTOMY SYNDROME, NOT ELSEWHERE CLASSIFIED REFILL HYDROCODONE-ACETAMINOPHEN TABLET, 5-325 MG, 1 TABLET NEEDED, ORALLY (CODE D FOR CHRONIC PAIN), Q5H PRN MDD2, 60 DAYS, 100, REFILLS 0 REFILL GABAPENTIN CAPSULE, 400 MG, 1 CAPSULE, ORALLY, FOUR TIMES DAILY FOR PAIN MDD4, 30 DAY(S), 120, REFILLS 2 REFILL TIZANIDINE HCL TABLET, 4 MG, 1 TABLET NEEDED, ORALLY, BEFORE BEDTIME MAY REPEAT IN 4 HRS, 30 DAY(S), 60, REFILLS 2 REFILL TRAMADOL HCL TABLET, 50 MG, 1 TABLET NEEDED, ORALLY ( CODE D FOR CHRONIC PAIN), EVERY 6 HRS PRN FOR PAIN MDD3, 60 DAYS, 160, REFILLS 0 NOTES: WE DISCUSSED SEVERAL ISSUES WITH MRS. VÁZQUEZ'S PAIN MANAGEMENT CASE. AT THIS TIME THE PATIENT WILL CONTINUE WITH THE SAME MEDICATION REGIME BEFORE. PATIENT DENIES ABUSE OF ANY MEDICATION, DENIES USE OF ILLEGAL SUBSTANCES, AND STATES THAT SHE IS ONLY USING THE MEDICATION FOR PAIN MANAGEMENT. PATIENT REPORTS SHE WOULD LIKE TO MOVE FROWARD WITH THE DCS AT THIS TIME. I DISCUSSED WITH THE PATIENT AT THIS TIME WE NOW NEED THE APPROVAL TO COME THROUGH AND WE NEED A CLEARANCE FROM HER PRIMARY FOR THE SURGERY. PATIENT WILL FOLLOW UP WITH ME IN 1 MONTH. INSTRUCTIONS WERE GIVEN, QUESTIONS WERE ANSWERED, PATIENT REPORTS UNDERSTANDING AND AGREES WITH THE PLAN. I, SP MORFIN, DOCUMENTED THE ABOVE INFORMATION ACTING A SCRIBE FOR DR. BURDICK. I HAVE REVIEWED THE ABOVE DOCUMENT, WRITTEN BY SP MORFIN SCRIBE AND I VERIFY THAT IT IS ACCURATE. PROCEDURE CODES FA211 ESTABILISHED PATIENT [facility] CHARGE G8730 PAIN ASSESS POS TOOL F/U PLAN DOC G8427 DOC MEDS VERIFIED W/PT OR RE DISPOSITION & COMMUNICATION FOLLOW UP 4 WEEKS ELECTRONICALLY SIGNED BY BERHANE BURDICK MD ON 02/05/2017 AT 07:51 PM EDT DISCLAIMER : THIS IS A VISIT SUMMARY EXTRACTED FROM THE [employer] CHART. IT IS NOT A COPY OF THE [employer] PROGRESS NOTE. [facility]
== END ==
LOC: M PAIN 12:40
PROVIDERS: ATTEND Anesthesiology
DX: M96.1 Postlaminectomy syndrome, not elsewhere classified (principal); M51.16 Intervertebral disc disorders with radiculopathy, lumbar region; M51.17 Intervertebral disc disorders with radiculopathy, lumbosacral region; J45.909 Unspecified asthma, uncomplicated; E55.9 Vitamin D deficiency, unspecified; E11.9 Type 2 diabetes mellitus without complications; Z88.5 Allergy status to narcotic agent; Z91.010 Allergy to peanuts; Z91.018 Allergy to other foods; Z91.030 Bee allergy status; Z79.891 Long term (current) use of opiate analgesic; Z79.899 Other long term (current) drug therapy

== ENCOUNTER → 2017-04-13 | Outpatient (CLI) | payer BC, OTHER ==
[~2017-04-13] MED LIST changes: +BIOT50004 PO; -BUPIVACAINE HCL 0.25% 30 ML VIAL As Ordered ONE; +D32000TA PO; +EPIN0.3I6 SUBQ; +GABA-283 PO; +HYDR-3713 PO; -ISOVUE-M 300 61% 15ML VIAL (Q9967) As Ordered ONE; -LIDOCAINE 1% SDV INJ 30 ML VIAL As Ordered ONE; -MIDAZOLAM INJ 2 MG/2 ML VIAL (J2250) As Ordered ONE; +MULT1TAB10 PO; +TIZA4CAP3 PO; +TRAM50TA2 PO; +VITA500T53 PO; -dexameTHASONE 10 MG/1 ML VIAL PRES.FREE (J1100) As Ordered ONE; -fentaNYL 100 MCG/2 ML INJECTION (J3010) As Ordered ONE
--- NOTE | 2017-04-30 23:49 | ECWPNPC ---
PATIENT NAME: ALEJANDRINA VÁZQUEZ : 1965 GENDER: FEMALE VISIT DATE: 04/13/2017 DISCHARGE DATE: 04/13/17 1246 VISIT LOCKED DATE TIME: PHYSICIAN: BERHANE BURDICK RESOURCE: BERHANE BURDICK REASON FOR APPOINTMENT 1. LOW BACK PAIN HISTORY OF PRESENT ILLNESS HISTORY OF PRESENT ILLNESS: PAIN THE PATIENT DESCRIBES THE PAIN... 52 YEAR OLD FEMALE PATIENT WITH HISTORY OF CHRONIC LOW BACK PAIN. PATIENT DESCRIBES THE PAIN ACHING, TENDER, SORE, AND HAVING IT ALL THE TIME WITH A PAIN SCORE OF 7/10. PATIENT REPORTS WANTS TO MOVE FORWARD WITH THE DCS WITH [employer]. CURRENTLY THE PATIENT IS USING GABAPENTIN, HYDROCODONE, TIZANIDINE AND TRAMADOL NEEDED FOR THE PAIN. PATIENT DENIES UNEXPLAINABLE WEIGHT LOSS, FEVER, CHILLS, NEW CHANGES ON HER URINARY OR BOWEL CONTROL. FALL RISK SCREENING: SCREENING :NO FALLS IN THE PAST YEAR CURRENT MEDICATIONS TAKING GABAPENTIN 400 MG CAPSULE 1 CAPSULE ORALLY FOUR TIMES DAILY FOR PAIN MDD4 TAKING TIZANIDINE HCL 4 MG TABLET 1 TABLET NEEDED ORALLY BEFORE BEDTIME MAY REPEAT IN 4 HRS TAKING METROGEL 1 % GEL 1 APPLICATION TO AFFECTED AREA EXTERNALLY FACE ONCE A DAY, NOTES: MONTHS AGO TAKING VITAMIN D 2000 UNIT TABLET 1 CAPSULE ORALLY ONCE A DAY TAKING PROTOPIC 0.03 % OINTMENT 1 APPLICATION TO AFFECTED AREA EXTERNALLY FINGERS ARMS TWICE A DAY, NOTES: MONTHS AGO TAKING CLOBETASOL PROPIONATE 0.05 % CREAM 1 APPLICATION TO AFFECTED AREA EXTERNALLY FINGERS ARMS TWICE A DAY NEEDED FOR FLARE-UPS, NOTES: MONTHS AGO TAKING EPIPEN 1 MG/ML DEVICE DIRECTED INTRAMUSCULAR NEEDED, NOTES: NEVER USED IT TAKING ALBUTEROL SULFATE HFA 108 (90 BASE) MCG/ACT AEROSOL SOLUTION 2 PUFFS INHALATION FOUR TIMES A DAY NEEDED, NOTES: NEVER USED TAKING MULTIVITAL DIOMEDE - TABLET 2 CAP ORALLY ONCE DAILY TAKING VITAMIN B12 100 MCG TABLET ORALLY 500 MG ONCE DAILY TAKING CALCIUM CITRATE 250 MG TABLET 4 TABLETS ORALLY 2 TABS AT LUNCH AND 2 TABS AT DINNER TAKING TYLENOL 8 HOUR 650 MG TABLET EXTENDED RELEASE 2 TABLETS NEEDED ORALLY EVERY 8 HRS TAKING LEVOTHYROXINE SODIUM 50 MCG TABLET 1 TABLET ON AN EMPTY STOMACH IN THE MORNING ORALLY ONCE A DAY TAKING HYDROCODONE-ACETAMINOPHEN 5-325 MG TABLET 1 TABLET NEEDED ORALLY (CODE D FOR CHRONIC PAIN) Q5H PRN MDD2 TAKING TRAMADOL HCL 50 MG TABLET 1 TABLET NEEDED ORALLY ( CODE D FOR CHRONIC PAIN) EVERY 6 HRS PRN FOR PAIN MDD3 NOT-TAKING FOLIC ACID 800 MCG TABLET 1 TABLET ORALLY ONCE A DAY MEDICATION LIST REVIEWED AND RECONCILED WITH THE PATIENT PAST MEDICAL HISTORY ASTHMA (INACTIVE SINCE CHILDHOOD) ATOPIC DERMATITIS BACK PAIN ALLERGIC RHINITIS, CAUSE UNSPECIFIED OBESITY, UNSPECIFIED UNSPECIFIED SINUSITIS (CHRONIC) UNSPECIFIED VITAMIN D 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 CONSTITUTIONAL: ANY CHANGE IN YOUR MEDICAL CONDITION? NO . CHILLS NO . FEVER NO . INFECTION: DO YOU HAVE NEW INFECTIONS? NO . DO YOU HAVE HISTORY OF MRSA? NO . MUSCULOSKELETAL: ANY NEW PATTERNS OF PAIN OR NUMBNESS? NO . GASTROENTEROLOGY: ANY NEW CHANGE IN BOWEL CONTROL? NO . GENITOURINARY: ANY NEW CHANGE IN BLADDER CONTROL? NO . IS THERE A CHANCE YOU COULD BE ? NO . HEMATOLOGY/LYMPH: DO YOU TAKE ANY BLOOD THINNERS? (FOR EXAMPLE- COUMADIN, PLAVIX, AGGRENOX, PLATEL, PRADAXA, OR XARELTO) NO . WHEN WAS YOUR LAST DOSE? DATE: TIME: . NEUROLOGY: HAVE YOU FALLEN IN THE PAST 6 MONTHS? NO . ANY NEW EXTREMITY NUMBNESS OR WEAKNESS? NO . CARDIOLOGY: DO YOU HAVE A PACEMAKER OR DEFIBRILLATOR? NO . RESPIRATORY: HAVE YOU BEEN SICK IN THE PAST WEEK? NO . FEVER NO . FLU LIKE SYMPTOMS? NO . COUGH NO . INTEGUMENTARY: DO YOU HAVE ANY RASHES OR OPEN SORES? NO . ALLERGIC/IMMUNO: ARE YOU ALLERGIC TO SHELLFISH OR IV DYE? NO . ANY NEW ALLERGIES? NO . PSYCHIATRIC: DO YOU HAVE THOUGHTS OF HURTING YOURSELF OR SOMEONE ELSE? NO . ARE YOU ABUSED, NEGLECTED, OR IN AN UNSAFE ENVIRONMENT? NO . ENDOCRINOLOGY: ARE YOU DIABETIC? YES . OTHER: DO YOU NEED ANY PRESCRIPTIONS? YES . IF YES, PLEASE LIST: ____GABAPENTIN, HYDROCODONE BY END OF MARCH . ANY NEW PROBLEMS WITH YOUR MEDICATIONS? NO . WHEN DID YOU LAST EAT? ____ . WHEN DID YOU LAST DRINK? ____ . WHAT DID YOU LAST DRINK? ____ . NAME OF PERSON DRIVING YOU HOME? ____ . DO YOU HAVE ANY OTHER QUESTIONS OR CONCERNS NO . VITAL SIGNS WT 126 LBS, HT 64 IN, BMI 21.63 INDEX, BP 118/72 MM HG, HR 60 /MIN, RR 18 /MIN, TEMP 98.3 F, OXYGEN SAT % 97%, NA INITIALS AW 1201, REVIEWED BY: ALEX. EXAMINATION : PATIENT IS ALERT O X 3 AND COOPERATIVE. PATIENT RIGHT LEG IS WEAKER AT FLEXION AND EXTENSION. PATIENT HAS SOME TENDERNESS IN THE LOW BACK PARASPINAL MUSCLE GROUP. MRI DONE ON 09/25/14 SHOWS A LAMINECTOMY AT L5-S1. MRI OF THE THORACIC SPINE DONE ON 11/21/16 SHOWS ENOUGH ROOM FOR THE LEADS TO PASS. ASSESSMENTS POSTLAMINECTOMY SYNDROME, NOT ELSEWHERE CLASSIFIED - M96.1 (PRIMARY) INTERVERTEBRAL DISC DISORDERS WITH RADICULOPATHY, LUMBAR REGION - M51.16 INTERVERTEBRAL DISC DISORDERS WITH RADICULOPATHY, LUMBOSACRAL REGION - M51.17 TREATMENT POSTLAMINECTOMY SYNDROME, NOT ELSEWHERE CLASSIFIED REFILL GABAPENTIN CAPSULE, 400 MG, 1 CAPSULE, ORALLY, FOUR TIMES DAILY FOR PAIN MDD4, 30 DAY(S), 120, REFILLS 2 REFILL HYDROCODONE-ACETAMINOPHEN TABLET, 5-325 MG, 1 TABLET NEEDED, ORALLY (CODE D FOR CHRONIC PAIN), Q5H PRN MDD2, 30 DAYS, 60, REFILLS 0 START KEFLEX CAPSULE, 500 MG, 1 CAPSULE, ORALLY, THREE TIMES DAILY, 10 DAY(S), 30, REFILLS 0 NOTES: WE DISCUSSED SEVERAL ISSUES WITH MRS. VÁZQUEZ'S PAIN MANAGEMENT CASE. AT THIS TIME THE PATIENT WILL CONTINUE WITH THE SAME MEDICATION REGIME BEFORE. PATIENT DENIES ABUSE OF ANY MEDICATION, DENIES USE OF ILLEGAL SUBSTANCES, AND STATES THAT SHE IS ONLY USING THE MEDICATION FOR PAIN MANAGEMENT. PATIENT WILL RECEIVE KEFLEX TO BE USED AFTER RETURNING HOME FROM THE HOSPITAL. PATIENT IS AWARE TO STOP BLOOD THINNERS AND ANY IBUPROFEN TEN DAYS PRIOR TO THE TRIAL. PATIENT ALSO AWARE SHE SHOULD NOT USE ANY PAIN MEDICATION TO HAVE A SUCCESSFUL TRIAL. PATIENT WILL ALSO NEED A CLEARANCE FROM THE PRIMARY TO MOVE FORWARD WITH THE DCS TRIAL. INSTRUCTIONS WERE GIVEN, QUESTIONS WERE ANSWERED, PATIENT REPORTS UNDERSTANDING AND AGREES WITH THE PLAN. I, EWELINA JOSEPH, DOCUMENTED THE ABOVE INFORMATION ACTING A SCRIBE FOR DR. BURDICK. I HAVE REVIEWED THE ABOVE DOCUMENT, WRITTEN BY EWELINA PEREZ AND I VERIFY THAT IT IS ACCURATE. PROCEDURE CODES FA211 ESTABILISHED PATIENT [facility] FACILITY CHARGE G8427 DOC MEDS VERIFIED W/PT OR RE G8730 PAIN ASSESS POS TOOL F/U PLAN DOC DISPOSITION & COMMUNICATION FOLLOW UP DCS TRIAL ELECTRONICALLY SIGNED BY BERHANE BURDICK MD ON 04/30/2017 AT 09:10 PM EDT DISCLAIMER : THIS IS A VISIT SUMMARY EXTRACTED FROM THE [employer] CHART. IT IS NOT A COPY OF THE [employer] PROGRESS NOTE. MTDD
== END ==
LOC: M PAIN 11:15
PROVIDERS: ATTEND Anesthesiology
DX: M96.1 Postlaminectomy syndrome, not elsewhere classified (principal); M51.16 Intervertebral disc disorders with radiculopathy, lumbar region; M51.17 Intervertebral disc disorders with radiculopathy, lumbosacral region; J30.9 Allergic rhinitis, unspecified; E66.9 Obesity, unspecified; E55.9 Vitamin D deficiency, unspecified; E11.9 Type 2 diabetes mellitus without complications; Z91.010 Allergy to peanuts; Z88.5 Allergy status to narcotic agent; Z91.018 Allergy to other foods; Z91.030 Bee allergy status; Z79.899 Other long term (current) drug therapy

== ENCOUNTER 2017-05-07 05:56 | Day surgery (SDC) | payer BC, OTHER ==
[~2017-05-07] VITALS: Ht 162.6 cm; Wt 56.7 kg
[2017-05-07] VITALS (8 sets, daily range): BP systolic 109–138; BP diastolic 55–77
[2017-05-07] MEDS ORDERED: ceFAZolin SOD 1 GM in D5W MINI-BAG PLUS 50 ML IV ONE (06:30)
[2017-05-07] MEDS ORDERED: LR 1,000 ML IV ONE (06:30)
[2017-05-07] MEDS ORDERED: LIDOCAINE 2% INJ 100 MG/5 ML SDV (FOR ANES.) As Ordered ONE (07:14)
[2017-05-07] MEDS ORDERED: fentaNYL 100 MCG/2 ML INJECTION (J3010) As Ordered ONE (07:14)
[2017-05-07] MEDS ORDERED: PROPOFOL 200 MG/20 ML VIAL As Ordered ONE (07:14)
[2017-05-07] MEDS ORDERED: BUPIVACAINE HCL 0.25% 30 ML VIAL As Ordered ONE (07:14)
[2017-05-07] MEDS ORDERED: LIDOCAINE W/EPINEPHRINE 1% 20ML VIAL As Ordered ONE (07:15)
[2017-05-07] MEDS ORDERED: MIDAZOLAM INJ 2 MG/2 ML VIAL (J2250) As Ordered ONE (07:15)
[2017-05-07] MEDS ORDERED: ISOVUE-300 61% 50ML VIAL (Q9967) As Ordered ONE (07:15)
[2017-05-07] MEDS ORDERED: GABAPENTIN 400 MG CAP PO SCH (09:00)
[2017-05-07] MEDS: NORCO, ANEXSIA 5/325MG TABLET (HYDROcodone/ACETAMINOPHEN) PO PRN ×3 (11:45→20:15)
--- NOTE | 2017-05-07 13:40 | REP ---
PARTIAL THORACIC SPINE SERIES: Two views. HISTORY: Intervertebral disc disorder, radiculopathy. 7 minutes 31 seconds of fluoroscopy time is reported. FINDINGS: A sequence of two last image hold fluoroscopic spot radiographs of the thoracic spine document dorsal column stimulator lead position. Signed by Junaid Moncada MD 05/07/2017 03:53 P
--- NOTE | 2017-05-07 14:20 | IPNPDOC ---
Subjective Date Seen The patient was seen on 05/07/17. Subjective Chief Complaint/HPI The patient is a 52-year-old female admitted with a reason for visit of Invertebral Disc Disorder, Radiculopathy. Events since last encounter No complaints at present , had elective trial spinal cord stimulator placed today. consulted by Dr marlow. Objective Physical Examination General Exam: Positive: Alert, Cooperative, No Acute Distress Eye Exam: Positive: PERRLA, Conjunctiva & lids normal, EOMI, Negative: Sclera icteric ENT Exam: Positive: Atraumatic, Mucous membr. moist/pink, Pharynx Normal Neck Exam: Positive: Supple, Negative: JVD, thyromegaly Chest Exam: Positive: Clear to auscultation, Normal air movement Heart Exam: Positive: Rate Normal, Regular Rhythm, Normal S1, Normal S2, Negative: Murmurs, Rubs Abdomen Exam: Positive: Normal bowel sounds, Soft, Negative: Tenderness, Hepatospenomegaly Extremity Exam: Positive: Normal pulses, Negative: Clubbing, Cyanosis, Edema Assessment /Plan Problems (1) Intervertebral disc disorder with radiculopathy of lumbosacral region Status: Chronic Problem Text: s/p insertion of trial spinal cord stimulator on 05/07/[address] marlow pain control as per dr marlow. (2) Post laminectomy syndrome Status: Chronic (3) History of gastric bypass Status: Chronic Problem Text: History of obesity s/p gastric bypass in 2014 no issues at this point (4) Diabetes Status: Chronic Problem Text: diet controlled (5) Hypothyroid Status: Chronic (6) Asthma Status: Chronic Problem Text: continue albuterol prn. Plan/VTE VTE Prophylaxis Ordered?: Yes VS, I&O, 24H, Fishbone Vital Signs/I&O Vital Signs Date Time Temp Pulse Resp B/P (MAP) Pulse Ox O2 Delivery O2 Flow Rate FiO2 05/07/17 13:15 98.8 55 18 122/66 (84) 98 Room Air DARRIUS LEVY MD May 07, 2017 14:20
[2017-05-07] MEDS ORDERED: ALBUTEROL SULFATE 2.5 MG/0.5 ML INH NEB SOLN NEB PRN (14:30)
[2017-05-07] MEDS: LEVOTHYROXINE 50MCG TABLET (0.05MG) PO SCH (15:35)
[2017-05-07] MEDS: GABAPENTIN 400 MG CAP PO SCH ×3 (15:42→20:14)
[2017-05-07] MEDS: ceFAZolin SOD 1 GM in D5W MINI-BAG PLUS 50 ML IV SCH ×2 (15:42→22:50)
[2017-05-07] MEDS ORDERED: tiZANidine 4 MG TAB PO PRN (21:00)
[2017-05-08] VITALS: BP 106/60
[2017-05-08] MEDS: NORCO, ANEXSIA 5/325MG TABLET (HYDROcodone/ACETAMINOPHEN) PO PRN ×2 (00:30→06:11)
[2017-05-08 04:00] VITALS: BP 105/63
[2017-05-08] MEDS: LEVOTHYROXINE 50MCG TABLET (0.05MG) PO SCH (06:10)
[2017-05-08 08:00] VITALS: BP 113/60
[2017-05-08] MEDS: GABAPENTIN 400 MG CAP PO SCH (08:11)
--- NOTE | 2017-05-15 09:01 | RO ---
DATE OF PROCEDURE: 05/07/2017 PREPROCEDURE DIAGNOSIS: Lumbar postlaminectomy pain syndrome. POSTPROCEDURE DIAGNOSIS: Lumbar postlaminectomy pain syndrome. PROCEDURE: Spinal column stimulator trial. SURGEON: Jesus Raygoza MD [employer] GAUGER: ANESTHESIA: Local with monitored anesthesia care. PREPROCEDURE NOTE: Ms. Reyez is a 52-year-old female patient with history of chronic low back and leg pain. The patient has tried multiple interventions, pharmacological management, surgeries in the past, and the pain has persisted. She has expressed that she would like to do a spinal column stimulator trial. She is in the operating room today for such trial. The patient denies unexplainable weight loss, fever, chills, changes in her urinary or bowel control. DESCRIPTION OF PROCEDURE: Procedure note: After consent was reviewed with the patient, the patient was brought to the operating room and placed in the prone position. Thoracolumbar area was cleaned with Betadine solution and draped aseptically. The procedure was done under sterile conditions. The patient received cefazolin 1 gram intravenous (IV). The first target was selected at the interlaminar level of T12-L1. Lidocaine was used as local anesthetic. An Epimed needle was advanced until the right lamina of L1 was touched; and then, by the loss of resistance technique, the epidural space was reached 7 cm deep into the skin by the loss of resistance technique. A 16 contact from [employer] lead was advanced through this needle to the posterior and medial aspect of the epidural space until I reached the area of T7. A decision was made to place a second lead. A target was selected at the left lamina of L1. A second Epimed needle was advanced until this lamina was touched; and then, by the loss of resistance technique, the epidural space was reached 7 cm deep into the skin by the loss of resistance technique. A second 16 contact lead from [employer] was advanced through this lead to the posterior and medial aspect of the epidural space, and was parallel to the first lead. Extension cables were attached to the leads, which were attached to the computer system of [employer]. Programming was started. I did a simple 30-minute programming, where I changed the position of the leads, the contact used, voltage used, among others. The final position of the leads was at T6, T7, and T8, as seen in the PA and lateral views. X-ray films of the position was kept at the patient electronic medical record (EMR) for future reference. The patient was satisfied with the coverage. I disconnected the extension from the patient, removed the stylets, and then I attached the leads to the patient's skin using Steri-Strips, and I covered the area with 4 x 4 and Tegaderm. The procedure was done without evidence of blood, paresthesia, or cerebrospinal fluid. The procedure was done without complications. The patient is going to be sent to the recovery room. The trial is going to be started. There were no complications during the procedure. VIV
== END 2017-05-08 09:20 | disposition home or self-care (01) ==
LOC: M SDC 05:56 → M PED 11:14 → M SDC 05-08 09:20
PROVIDERS: ATTEND Anesthesiology
DX: M96.1 Postlaminectomy syndrome, not elsewhere classified (principal); E11.9 Type 2 diabetes mellitus without complications; M54.5 Low back pain; L30.9 Dermatitis, unspecified; G43.909 Migraine, unspecified, not intractable, without status migrainosus; Z88.5 Allergy status to narcotic agent; Z91.018 Allergy to other foods; Z79.899 Other long term (current) drug therapy; Z90.710 Acquired absence of both cervix and uterus; Z98.84 Bariatric surgery status
CPT/HCPCS: 63650; 72052; C1778; J0690; J2250; J3010

== ENCOUNTER → 2017-05-11 | Outpatient (CLI) | payer BC, OTHER ==
--- NOTE | 2017-05-17 01:07 | ECWPNPC ---
PATIENT NAME: ALEJANDRINA VÁZQUEZ : 1965 GENDER: FEMALE VISIT DATE: 05/11/2017 DISCHARGE DATE: 05/11/17 1208 VISIT LOCKED DATE TIME: PHYSICIAN: BERHANE BURDICK RESOURCE: BERHANE BURDICK REASON FOR APPOINTMENT 1. LOW BACK PAIN HISTORY OF PRESENT ILLNESS GENERAL: 52 YEAR OLD FEMALE WITH HISTORY OF CHRONIC LOW BACK PAIN. PATIENT HAS A DCS TRIAL AND REPORTS NO PAIN WHILE THE SYSTEM IS ON. PATIENT REPORTS NOT USING ANY MEDICATION WHILE ON THE TRIAL. AT THIS TIME THE PATIENT WOULD LIKE TO PROCEED WITH THE PERMANENT DUE TO THE PAIN RELIEF SHE RECEIVED. PATIENT DENIES UNEXPLAINABLE WEIGHT LOSS, FEVER, CHILLS, NEW CHANGES ON HER URINARY OR BOWEL CONTROL. CURRENT MEDICATIONS TAKING METROGEL 1 % GEL 1 APPLICATION TO AFFECTED AREA EXTERNALLY FACE ONCE A DAY TAKING VITAMIN D 2000 UNIT TABLET 1 CAPSULE ORALLY ONCE A DAY TAKING PROTOPIC 0.03 % OINTMENT 1 APPLICATION TO AFFECTED AREA EXTERNALLY FINGERS ARMS TWICE A DAY TAKING CLOBETASOL PROPIONATE 0.05 % CREAM 1 APPLICATION TO AFFECTED AREA EXTERNALLY FINGERS ARMS TWICE A DAY NEEDED FOR FLARE-UPS TAKING EPIPEN 1 MG/ML DEVICE DIRECTED INTRAMUSCULAR NEEDED TAKING ALBUTEROL SULFATE HFA 108 (90 BASE) MCG/ACT AEROSOL SOLUTION 2 PUFFS INHALATION FOUR TIMES A DAY NEEDED TAKING MULTIVITAL [place] - TABLET 2 CAP ORALLY ONCE DAILY TAKING VITAMIN B12 100 MCG TABLET ORALLY 500 MG ONCE DAILY TAKING CALCIUM CITRATE 250 MG TABLET 4 TABLETS ORALLY 2 TABS AT LUNCH AND 2 TABS AT DINNER TAKING TYLENOL 8 HOUR 650 MG TABLET EXTENDED RELEASE 2 TABLETS NEEDED ORALLY EVERY 8 HRS TAKING LEVOTHYROXINE SODIUM 50 MCG TABLET 1 TABLET ON AN EMPTY STOMACH IN THE MORNING ORALLY ONCE A DAY TAKING GABAPENTIN 400 MG CAPSULE 1 CAPSULE ORALLY FOUR TIMES DAILY FOR PAIN MDD4 TAKING KEFLEX 500 MG CAPSULE 1 CAPSULE ORALLY THREE TIMES DAILY TAKING TIZANIDINE HCL 4 MG TABLET 1 TABLET NEEDED ORALLY BEFORE BEDTIME MAY REPEAT IN 4 HRS TAKING HYDROCODONE-ACETAMINOPHEN 5-325 MG TABLET 1 TABLET NEEDED ORALLY FOR PAIN Q4H PRN MDD4 TAKING TRAMADOL HCL 50 MG TABLET 1 TABLET NEEDED ORALLY ( CODE D FOR CHRONIC PAIN) EVERY 6 HRS PRN FOR PAIN MDD3 NOT-TAKING FOLIC ACID 800 MCG TABLET 1 TABLET ORALLY ONCE A DAY MEDICATION LIST REVIEWED AND RECONCILED WITH THE PATIENT PAST MEDICAL HISTORY ASTHMA (INACTIVE SINCE CHILDHOOD) ATOPIC DERMATITIS BACK PAIN ALLERGIC RHINITIS, CAUSE UNSPECIFIED OBESITY, UNSPECIFIED UNSPECIFIED SINUSITIS (CHRONIC) UNSPECIFIED VITAMIN D 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 ALLERGY HEART MURMUR DIET CONTROLLED DIABETES TYPE 2 ALLERGIES CODEINE PHOSPHATE (FOR ALLERGIES USE ONLY): HIVES: ALLERGY ALMONDS, PECANS, BRAZIL NUTS: ANAPHYLAXIS: ALLERGY PEACHES AND PARESH CHERRIES: ANGIOEDEMA: ALLERGY BEE STINGS: SWELLING AT STING SITE: ALLERGY VITAL SIGNS WT 125 LBS, HT 64 IN, BMI 21.45 INDEX, BP 133/76 MM HG, HR 61 /MIN, RR 16 /MIN, TEMP 97.4 F, OXYGEN SAT % 99%, NA INITIALS SC 10:46, REVIEWED BY: CM. EXAMINATION GENERAL: PATIENT IS ALERT O X 3 AND COOPERATIVE. PATIENT RIGHT LEG IS WEAKER AT FLEXION AND EXTENSION. PATIENT HAS SOME TENDERNESS IN THE LOW BACK PARASPINAL MUSCLE GROUP. MRI DONE ON 09/25/14 SHOWS A LAMINECTOMY AT L5-S1. MRI OF THE THORACIC SPINE DONE ON 11/21/16 SHOWS ENOUGH ROOM FOR THE LEADS TO PASS. ASSESSMENTS POSTLAMINECTOMY SYNDROME, NOT ELSEWHERE CLASSIFIED - M96.1 (PRIMARY) INTERVERTEBRAL DISC DISORDER WITH RADICULOPATHY OF LUMBOSACRAL REGION - M51.17 INTERVERTEBRAL DISC DISORDER WITH RADICULOPATHY OF LUMBAR REGION - M51.16 TREATMENT POSTLAMINECTOMY SYNDROME, NOT ELSEWHERE CLASSIFIED NOTES: WE DISCUSSED SEVERAL ISSUES WITH MRS. VÁZQUEZ'S PAIN MANAGEMENT CASE. AT THIS TIME THE PATIENT REPORTS HAVING OVER 95% RELIEF FROM THE DCS. PATIENT REPORTS NOT USING ANY PAIN MEDICATION WHILE ON THE TRIAL AND WOULD LIKE TO MOVE FORWARD WITH THE PERMANENT DCS SOON POSSIBLE. INSTRUCTIONS WERE GIVEN, QUESTIONS WERE ANSWERED, PATIENT REPORTS UNDERSTANDING AND AGREES WITH THE PLAN. I, EWELINA JOSEPH, DOCUMENTED THE ABOVE INFORMATION ACTING A SCRIBE FOR DR. BURDICK. I HAVE REVIEWED THE ABOVE DOCUMENT, WRITTEN BY EWELINA PEREZ AND I VERIFY THAT IT IS ACCURATE. DISPOSITION & COMMUNICATION FOLLOW UP 3 WEEKS ELECTRONICALLY SIGNED BY BERHANE BURDICK MD ON 05/16/2017 AT 01:35 PM EDT DISCLAIMER : THIS IS A VISIT SUMMARY EXTRACTED FROM THE [employer] CHART. IT IS NOT A COPY OF THE [employer] PROGRESS NOTE. MTDD
== END ==
LOC: M PAIN 10:00
PROVIDERS: ATTEND Anesthesiology
DX: M96.1 Postlaminectomy syndrome, not elsewhere classified (principal); M51.17 Intervertebral disc disorders with radiculopathy, lumbosacral region; M51.16 Intervertebral disc disorders with radiculopathy, lumbar region; J45.909 Unspecified asthma, uncomplicated; E11.9 Type 2 diabetes mellitus without complications; Z88.5 Allergy status to narcotic agent; Z91.010 Allergy to peanuts; Z91.018 Allergy to other foods; Z91.030 Bee allergy status; Z79.891 Long term (current) use of opiate analgesic

== ENCOUNTER → 2017-05-29 | Outpatient (CLI) | payer BC, OTHER ==
--- NOTE | 2017-06-05 00:03 | ECWPNPC ---
PATIENT NAME: ALEJANDRINA VÁZQUEZ : 1965 GENDER: FEMALE VISIT DATE: 05/29/2017 DISCHARGE DATE: 05/29/17 1614 VISIT LOCKED DATE TIME: PHYSICIAN: BERHANE BURDICK RESOURCE: BERHANE BURDICK REASON FOR APPOINTMENT 1. LOW BACK PAIN HISTORY OF PRESENT ILLNESS HISTORY OF PRESENT ILLNESS: PAIN THE PATIENT DESCRIBES THE PAIN... 52 YEAR OLD FEMALE PATIENT WITH HISTORY OF CHRONIC LOW BACK PAIN. PATIENT DESCRIBES THE PAIN ACHING, TENDER, SORE, AND HAVING IT ALL THE TIME WITH A PAIN SCORE OF 7/10. PATIENT REPORTS WANTS TO MOVE FORWARD WITH THE DCS WITH [employer] AT THIS TIME. CURRENTLY THE PATIENT IS USING GABAPENTIN, HYDROCODONE, TIZANIDINE AND TRAMADOL NEEDED FOR THE PAIN. PATIENT DENIES UNEXPLAINABLE WEIGHT LOSS, FEVER, CHILLS, NEW CHANGES ON HER URINARY OR BOWEL CONTROL. FALL RISK SCREENING: SCREENING :NO FALLS IN THE PAST YEAR CURRENT MEDICATIONS TAKING METROGEL 1 % GEL 1 APPLICATION TO AFFECTED AREA EXTERNALLY FACE ONCE A DAY TAKING VITAMIN D 2000 UNIT TABLET 1 CAPSULE ORALLY ONCE A DAY TAKING PROTOPIC 0.03 % OINTMENT 1 APPLICATION TO AFFECTED AREA EXTERNALLY FINGERS ARMS TWICE A DAY TAKING CLOBETASOL PROPIONATE 0.05 % CREAM 1 APPLICATION TO AFFECTED AREA EXTERNALLY FINGERS ARMS TWICE A DAY NEEDED FOR FLARE-UPS TAKING EPIPEN 1 MG/ML DEVICE DIRECTED INTRAMUSCULAR NEEDED TAKING MULTIVITAL [employer] - TABLET 2 CAP ORALLY ONCE DAILY TAKING CALCIUM CITRATE 250 MG TABLET 4 TABLETS ORALLY 2 TABS AT LUNCH AND 2 TABS AT DINNER TAKING TYLENOL 8 HOUR 650 MG TABLET EXTENDED RELEASE 2 TABLETS NEEDED ORALLY EVERY 8 HRS TAKING LEVOTHYROXINE SODIUM 50 MCG TABLET 1 TABLET ON AN EMPTY STOMACH IN THE MORNING ORALLY ONCE A DAY TAKING GABAPENTIN 400 MG CAPSULE 1 CAPSULE ORALLY FOUR TIMES DAILY FOR PAIN MDD4 TAKING TIZANIDINE HCL 4 MG TABLET 1 TABLET NEEDED ORALLY BEFORE BEDTIME MAY REPEAT IN 4 HRS TAKING HYDROCODONE-ACETAMINOPHEN 5-325 MG TABLET 1 TABLET NEEDED ORALLY FOR PAIN Q4H PRN MDD4 TAKING TRAMADOL HCL 50 MG TABLET 1 TABLET NEEDED ORALLY ( CODE D FOR CHRONIC PAIN) EVERY 6 HRS PRN FOR PAIN MDD3 NOT-TAKING ALBUTEROL SULFATE HFA 108 (90 BASE) MCG/ACT AEROSOL SOLUTION 2 PUFFS INHALATION FOUR TIMES A DAY NEEDED NOT-TAKING VITAMIN B12 100 MCG TABLET ORALLY 500 MG ONCE DAILY NOT-TAKING KEFLEX 500 MG CAPSULE 1 CAPSULE ORALLY THREE TIMES DAILY UNKNOWN FOLIC ACID 800 MCG TABLET 1 TABLET ORALLY ONCE A DAY MEDICATION LIST REVIEWED AND RECONCILED WITH THE PATIENT PAST MEDICAL HISTORY ASTHMA (INACTIVE SINCE CHILDHOOD) ATOPIC DERMATITIS BACK PAIN ALLERGIC RHINITIS, CAUSE UNSPECIFIED OBESITY, UNSPECIFIED UNSPECIFIED SINUSITIS (CHRONIC) UNSPECIFIED VITAMIN D 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 CONSTITUTIONAL: ANY CHANGE IN YOUR MEDICAL CONDITION? NO . CHILLS NO . FEVER NO . INFECTION: DO YOU HAVE NEW INFECTIONS? NO . DO YOU HAVE HISTORY OF MRSA? NO . MUSCULOSKELETAL: ANY NEW PATTERNS OF PAIN OR NUMBNESS? NO . GASTROENTEROLOGY: ANY NEW CHANGE IN BOWEL CONTROL? NO . GENITOURINARY: ANY NEW CHANGE IN BLADDER CONTROL? NO . IS THERE A CHANCE YOU COULD BE ? NO . HEMATOLOGY/LYMPH: DO YOU TAKE ANY BLOOD THINNERS? (FOR EXAMPLE- COUMADIN, PLAVIX, AGGRENOX, PLATEL, PRADAXA, OR XARELTO) NO . WHEN WAS YOUR LAST DOSE? DATE: TIME: . NEUROLOGY: HAVE YOU FALLEN IN THE PAST 6 MONTHS? NO . ANY NEW EXTREMITY NUMBNESS OR WEAKNESS? NO . CARDIOLOGY: DO YOU HAVE A PACEMAKER OR DEFIBRILLATOR? NO . RESPIRATORY: HAVE YOU BEEN SICK IN THE PAST WEEK? NO . FEVER NO . FLU LIKE SYMPTOMS? NO . COUGH NO . INTEGUMENTARY: DO YOU HAVE ANY RASHES OR OPEN SORES? NO . ALLERGIC/IMMUNO: ARE YOU ALLERGIC TO SHELLFISH OR IV DYE? NO . ANY NEW ALLERGIES? NO . PSYCHIATRIC: DO YOU HAVE THOUGHTS OF HURTING YOURSELF OR SOMEONE ELSE? NO . ARE YOU ABUSED, NEGLECTED, OR IN AN UNSAFE ENVIRONMENT? NO . ENDOCRINOLOGY: ARE YOU DIABETIC? YES . OTHER: DO YOU NEED ANY PRESCRIPTIONS? YES . IF YES, PLEASE LIST: HYDROCODONE (HAVE 1 WEEK LEFT) . ANY NEW PROBLEMS WITH YOUR MEDICATIONS? NO . WHEN DID YOU LAST EAT? ____ . WHEN DID YOU LAST DRINK? ____ . WHAT DID YOU LAST DRINK? ____ . NAME OF PERSON DRIVING YOU HOME? ____ . DO YOU HAVE ANY OTHER QUESTIONS OR CONCERNS NO . VITAL SIGNS WT 123 LBS, HT 64 IN, BMI 21.11 INDEX, BP 131/63 MM HG, HR 59 /MIN, RR 16 /MIN, TEMP 98.4 F, OXYGEN SAT % 100%, NA INITIALS SC 15:19, REVIEWED BY: NL. EXAMINATION : PATIENT IS ALERT O X 3 AND COOPERATIVE. PATIENT RIGHT LEG IS WEAKER AT FLEXION AND EXTENSION. PATIENT HAS SOME TENDERNESS IN THE LOW BACK PARASPINAL MUSCLE GROUP. MRI DONE ON 09/25/14 SHOWS A LAMINECTOMY AT L5-S1. ASSESSMENTS POSTLAMINECTOMY SYNDROME, NOT ELSEWHERE CLASSIFIED - M96.1 (PRIMARY) INTERVERTEBRAL DISC DISORDER WITH RADICULOPATHY OF LUMBAR REGION - M51.16 INTERVERTEBRAL DISC DISORDER WITH RADICULOPATHY OF LUMBOSACRAL REGION - M51.17 TREATMENT POSTLAMINECTOMY SYNDROME, NOT ELSEWHERE CLASSIFIED REFILL HYDROCODONE-ACETAMINOPHEN TABLET, 5-325 MG, 1 TABLET NEEDED, ORALLY FOR PAIN, Q4H PRN MDD4, 30 DAYS, 100, REFILLS 0 REFILL TRAMADOL HCL TABLET, 50 MG, 1 TABLET NEEDED, ORALLY ( CODE D FOR CHRONIC PAIN), EVERY 6 HRS PRN FOR PAIN MDD3, 30 DAYS, 80, REFILLS 0 REFILL GABAPENTIN CAPSULE, 400 MG, 1 CAPSULE, ORALLY, FOUR TIMES DAILY FOR PAIN MDD4, 30 DAY(S), 120, REFILLS 2 REFILL TIZANIDINE HCL TABLET, 4 MG, 1 TABLET NEEDED, ORALLY, BEFORE BEDTIME MAY REPEAT IN 4 HRS, 30 DAY(S), 60, REFILLS 2 NOTES: WE DISCUSSED SEVERAL ISSUES WITH MRS. VÁZQUEZ'S PAIN MANAGEMENT CASE. AT THIS TIME THE PATIENT WILL CONTINUE WITH THE SAME MEDICATION REGIME BEFORE. PATIENT DENIES ABUSE OF ANY MEDICATION, DENIES USE OF ILLEGAL SUBSTANCES, AND STATES THAT SHE IS ONLY USING THE MEDICATION FOR PAIN MANAGEMENT. ISTOP REVIEWED [id number]. AT THIS TIME WE ARE AWAITING APPROVAL FOR THE DCS. PATIENT WILL RETURN TO THE CLINIC IN 3 WEEKS TO FURTHER DISCUSS HER CASE. INSTRUCTIONS WERE GIVEN, QUESTIONS WERE ANSWERED, PATIENT REPORTS UNDERSTANDING AND AGREES WITH THE PLAN. I, EWELINA JOSEPH, DOCUMENTED THE ABOVE INFORMATION ACTING A SCRIBE FOR DR. BURDICK. I HAVE REVIEWED THE ABOVE DOCUMENT, WRITTEN BY EWELINA PEREZ AND I VERIFY THAT IT IS ACCURATE. PROCEDURE CODES FA211 ESTABILISHED PATIENT [facility] FACILITY CHARGE G8427 DOC MEDS VERIFIED W/PT OR RE G8730 PAIN ASSESS POS TOOL F/U PLAN DOC DISPOSITION & COMMUNICATION FOLLOW UP 3 WEEKS ELECTRONICALLY SIGNED BY BERHANE BURDICK MD ON 06/04/2017 AT 08:37 PM EDT DISCLAIMER : THIS IS A VISIT SUMMARY EXTRACTED FROM THE [employer] CHART. IT IS NOT A COPY OF THE [employer] PROGRESS NOTE. VIV
== END ==
LOC: M PAIN 15:15
PROVIDERS: ATTEND Anesthesiology
DX: M96.1 Postlaminectomy syndrome, not elsewhere classified (principal); M51.16 Intervertebral disc disorders with radiculopathy, lumbar region; M51.17 Intervertebral disc disorders with radiculopathy, lumbosacral region; J45.909 Unspecified asthma, uncomplicated; E11.9 Type 2 diabetes mellitus without complications; Z88.5 Allergy status to narcotic agent; Z91.010 Allergy to peanuts; Z91.018 Allergy to other foods; Z91.030 Bee allergy status; Z79.899 Other long term (current) drug therapy

== ENCOUNTER 2017-07-02 05:54 | Day surgery (SDC) | payer BC, OTHER ==
[2017-07-02] VITALS (7 sets, daily range): BP systolic 115–152; BP diastolic 66–90
[~2017-07-02] VITALS: Ht 162.6 cm; Wt 57.0 kg
[2017-07-02] MEDS ORDERED: LIDOCAINE 1% MDV 20ML VIAL SQ PRN (06:15)
[2017-07-02] MEDS ORDERED: LR 1,000 ML IV ONE (06:15)
[2017-07-02] MEDS ORDERED: THROMBIN SOLN 20,000 UNITS KIT As Ordered ONE (07:10)
[2017-07-02] MEDS ORDERED: BACITRACIN PWD 50,000 UNITS VIAL As Ordered ONE (07:10)
[2017-07-02] MEDS ORDERED: LIDOCAINE W/EPINEPHRINE 1% 20ML VIAL As Ordered ONE (07:10)
[2017-07-02] MEDS ORDERED: LIDOCAINE 2% INJ 100 MG/5 ML SDV (FOR ANES.) As Ordered ONE (07:17)
[2017-07-02] MEDS ORDERED: MIDAZOLAM INJ 2 MG/2 ML VIAL (J2250) As Ordered ONE ×2 (07:17→08:26)
[2017-07-02] MEDS ORDERED: PROPOFOL 200 MG/20 ML VIAL As Ordered ONE ×3 (07:17→10:51)
[2017-07-02] MEDS ORDERED: fentaNYL 100 MCG/2 ML INJECTION (J3010) As Ordered ONE (07:18)
[2017-07-02] MEDS ORDERED: ceFAZolin 1GM INJ (J0690) As Ordered ONE (08:17)
[2017-07-02] MEDS ORDERED: ONDANSETRON 4MG/2ML VIAL (J2405) As Ordered ONE (09:49)
--- NOTE | 2017-07-02 11:15 | REP ---
PARTIAL THORACIC SPINE SERIES: Two views. HISTORY: Dorsal column stimulator. 6 minutes 56 seconds of fluoroscopy time is reported. FINDINGS: A sequence of two last image hold fluoroscopic spot radiographs of the thoracic spine document dorsal column stimulator lead position. Signed by Junaid Moncada MD 07/02/2017 11:21 A
[2017-07-02] MEDS ORDERED: PERCOCET 5MG/325MG TAB As Ordered ONE (12:09)
[2017-07-02] MEDS ORDERED: tiZANidine 4 MG TAB PO PRN (12:30)
[2017-07-02] MEDS ORDERED: PERCOCET 5MG/325MG TAB PO PRN (12:30)
[2017-07-02] MEDS ORDERED: fentaNYL 100 MCG/2 ML INJECTION (J3010) IV PRN (12:30)
[2017-07-02] MEDS ORDERED: LR 1,000 ML IV SCH (12:30)
[2017-07-02] MEDS ORDERED: MORPHINE 2 MG/ML 1ML SYRINGE IV PRN (12:30)
[2017-07-02] MEDS: GABAPENTIN 400 MG CAP PO SCH ×3 (14:16→21:43)
--- NOTE | 2017-07-02 14:18 | IPNPDOC ---
Subjective Date Seen The patient was seen on 07/02/17. Subjective Chief Complaint/HPI The patient is a 52-year-old female admitted with a reason for visit of Disc Disorder With Radiculopathy. Events since last encounter pateint had placement of spinal cord stimulator, no complaints at present, no nausea or vomiting. no pain . no fever or chills Objective Physical Examination General Exam: Positive: Alert, Cooperative, No Acute Distress Eye Exam: Positive: PERRLA, Conjunctiva & lids normal, EOMI, Negative: Sclera icteric ENT Exam: Positive: Atraumatic, Mucous membr. moist/pink, Pharynx Normal Neck Exam: Positive: Supple, Negative: JVD, thyromegaly Chest Exam: Positive: Clear to auscultation, Normal air movement Heart Exam: Positive: Rate Normal, Regular Rhythm, Normal S1, Normal S2, Negative: Murmurs, Rubs Abdomen Exam: Positive: Normal bowel sounds, Soft, Negative: Tenderness, Hepatospenomegaly Extremity Exam: Positive: Normal pulses, Negative: Clubbing, Cyanosis, Edema Skin Exam: Positive: Nl turgor and temperature, Negative: Rash, Breakdown Assessment /Plan Problems (1) Intervertebral disc disorder with radiculopathy of lumbosacral region Status: Chronic Problem Text: with post laminectomy syndrome Had placement of spinal column stimulator by Dr Shell. pain control as per Dr Shell. (2) Diabetes Status: Chronic Response to Treatment: Stable Problem Text: diet controlled. (3) Hypothyroid Status: Chronic Response to Treatment: Stable (4) History of gastric bypass Status: Chronic Problem Text: History of morbid obesity with gastric bypass in 2014 no issues at this point. (5) Asthma Status: Chronic Response to Treatment: Stable Problem Text: will order albuterol prn Plan/VTE VTE Prophylaxis Ordered?: Yes VS, I&O, 24H, Fishbone Vital Signs/I&O Vital Signs Date Time Temp Pulse Resp B/P (MAP) Pulse Ox O2 Delivery O2 Flow Rate FiO2 07/02/17 13:00 97.5 52 16 152/90 (110) 100 Room Air I&O- Last 24 Hours up to 6 AM 07/03/17 06:00 Intake Total 1100 ml Balance 1100 ml DARRIUS LEVY MD Jul 02, 2017 14:18
[2017-07-02] MEDS: oxyCODONE 5MG TAB PO PRN ×4 (14:24→23:00)
[2017-07-02] MEDS ORDERED: ALBUTEROL SULFATE 2.5 MG/0.5 ML INH NEB SOLN NEB PRN (17:00)
[2017-07-03 02:00] VITALS: BP 120/78
[2017-07-03] MEDS: oxyCODONE 5MG TAB PO PRN ×2 (02:39→06:13)
[2017-07-03 06:00] VITALS: BP 126/56
[2017-07-03 06:13] VITALS: BP 126/56
[2017-07-03] MEDS ORDERED: MULTIVITAMINS/MINERALS THERAP 1 TAB PO SCH (09:00)
[2017-07-03] MEDS ORDERED: CYANOCOBALAMIN 500 MCG TAB PO SCH (09:00)
[2017-07-03] MEDS ORDERED: VITAMIN D 1,000 INTERNATIONAL UNITS TABLET PO SCH (09:00)
[2017-07-03] MEDS: GABAPENTIN 400 MG CAP PO SCH (09:09)
--- NOTE | 2017-07-03 19:01 | IPN ---
DATE: 07/03/2017 SUBJECTIVE: The patient is seen and examined in the room today. The patient had dorsal column stimulator insertion yesterday by Dr. Shell. The patient tolerated the procedure well. No overnight events reported. OBJECTIVE: VITAL SIGNS: Temperature is 98.8, pulse is 73, respirations 17, blood pressure 126/56, pulse oximetry is 95% in room air. GENERAL: No sign of acute distress. Alert and oriented times three. HEENT: Normocephalic, atraumatic. Extraocular motor grossly intact. CARDIOVASCULAR: Positive S1, S2, regular rate. LUNGS: Clear to auscultation bilaterally. ABDOMEN: Soft, nontender, nondistended. Bowel sounds present. No rebound, no guarding. EXTREMITIES: No edema, no sign of cyanosis. ASSESSMENT AND PLAN: 1. Lumbar radiculopathy status post dorsal column stimulator placement. 2. Diabetes. 3. Hypothyroidism. 4. History of gastric bypass. 5. Asthma. Plan: Patient was evaluated prior to discharge. Patient determined safe for discharge by the primary team.
--- NOTE | 2017-07-09 09:42 | ROPAIN ---
DATE OF PROCEDURE: 07/02/2017 PREPROCEDURE DIAGNOSIS: Lumbar postlaminectomy pain syndrome. POSTPROCEDURE DIAGNOSIS: Lumbar postlaminectomy pain syndrome. PROCEDURE: Spinal column stimulator implant. SURGEON: Dr. Jesus Raygoza. COLD MEAT CHEF: ANESTHESIA: Local with monitored anesthesia care. PREOPERATIVE NOTE: Ms. Reyez is a 52-year-old female patient with history of chronic low back and leg pain. The patient has attempted the use of medication management and interventions and the pain has persisted. A spinal column stimulator trial was done and the patient reports more than 90% improvement with the spinal column stimulator. She has expressed that she wants to move forward with a spinal column stimulator implant, reason why she is in the operating room today. Patient denies unexplained weight loss, fever, chills, changes in her urinary or bowel control. PROCEDURE NOTE: After consent was taken, patient was brought to the procedure room and placed in the prone position. Thoracolumbar area was cleaned with Betadine solution and draped aseptically. Procedure was done under sterile conditions. First target was selected at the level of L1 to L3. I used local anesthesia to numb the skin and the subcutaneous tissue below it. A midline incision was done approximately 2 inches long. I started to expose the thoracolumbar fascia with the assistance of a Bovie and finally with the assistance of a cup. After the exposure of the thoracolumbar fascia, I used an EpiMed Touhy needle. I touched the right lamina of L1 and then by the loss of resistant technique, I reached the epidural space 5 cm deep into the skin by the loss of resistant technique. Then I advanced an 8 contact lead from [employer] through this needle and I placed it in the posteromedial aspect of the epidural space and I moved it to the level of approximately T7. A decision was made to place a second lead. I took a second Tuohy 17 gauge needle and touched the left lamina of L1 and then by loss of resistant technique, I reached the epidural space approximately 5 cm deep into the skin by loss of resistant technique and I advanced a second 8 contact lead from [employer], which I put in the posteromedial aspect of the epidural space and I moved it parallel to the first one at the position of T7. After both leads were parallel, I attached extensions to these leads and I attached them the extensions to the computer system of [employer]. I started to do programming. This was a simple 30 minute programming where I changed the position of the leads, the contacts used, the voltage used. After the patient expressed adequate control of her back and leg pain, I decided to keep the leads at the position of T6-T7 and T8, as seen in the AP and lateral views, mainly covering T7. I removed the stylet and extensions. I passed some sleeves through the leads. I attached the sleeves to the thoracolumbar fascia using the Fixate system and after checking the position of the leads again, I screwed the leads to the sleeves. Then I started to create a pocket at the left side of the back, as requested by the patient between the lower part of the ribs and the iliac crest, approximately 1.5 to 2 cm deep. To create a pocket, I used local anesthesia. I did a 2 inch incision. I checked hemostasis, cleaned the pocket with Betadine solution with saline. Then I created a tunnel between the midline position and the pocket position using the special device provided by [employer]. Then I passed the leads through the Tuohy needle to the pocket site. I then cleaned the leads and put the leads inside of the battery. I checked the impedance of the system, which was correct. Then I screwed the leads to the battery. I put the battery in the pocket again. Under x-ray, I checked the position of the leads, the battery, and when everything was appropriate, I started to close the midline incision and also the battery incision with intermittent #3-0 Vicryl and then with intermittent Vicryl #3-0. Finally I closed the skin with Dermabond surgical glue. There was no evidence of blood, paresthesia or cerebral spinal fluid during the procedure. The procedure was done without complications. The patient received cefazolin 1 gram IV before we started. The patient was going to be sent to the recovery room. There was no complication during the procedure.
== END 2017-07-03 09:48 | disposition home or self-care (01) ==
LOC: M SDC 05:54 → M MSPAV 12:49 → M SDC 07-03 09:48
PROVIDERS: ATTEND Anesthesiology
DX: M96.1 Postlaminectomy syndrome, not elsewhere classified (principal); E11.9 Type 2 diabetes mellitus without complications; L30.9 Dermatitis, unspecified; J45.909 Unspecified asthma, uncomplicated; Z88.5 Allergy status to narcotic agent; Z91.013 Allergy to seafood; Z91.018 Allergy to other foods; Z79.899 Other long term (current) drug therapy; Z90.710 Acquired absence of both cervix and uterus; Z98.84 Bariatric surgery status
CPT/HCPCS: 63655; 63685; 76000; 96365; 96366; 96376; C1778; C1820; J0690; J2250; J2405; J3010; L8699; L9900

== ENCOUNTER → 2017-07-10 | Outpatient (CLI) | payer OTHER ==
--- NOTE | 2017-08-01 01:15 | ECWPNPC ---
PATIENT NAME: ALEJANDRINA VÁZQUEZ : 1965 GENDER: FEMALE VISIT DATE: 07/10/2017 DISCHARGE DATE: 07/10/17 1553 VISIT LOCKED DATE TIME: PHYSICIAN: BERHANE BURDICK RESOURCE: BERHANE BURDICK REASON FOR APPOINTMENT 1. LOW BACK PAIN HISTORY OF PRESENT ILLNESS HISTORY OF PRESENT ILLNESS: PAIN THE PATIENT DESCRIBES THE PAIN... 52 YEAR OLD FEMALE PATIENT WITH HISTORY OF CHRONIC LOW BACK PAIN. PATIENT DESCRIES THE PAIN SORE AND TENDER WITH A PAIN SCORE OF 3/10. PATIENT RECEIVED A PERMANENT DCS ON 07/02/2017 AND STATES HER PAIN IS POST OPERATIVE PAIN AND FROM THE BATTERY. PATIENT STATES SHE HAS ONLY NEED POST OPERATIVE PAIN MEDICATION DUE TO THE DCS AT THIS TIME. PATIENT DENIES UNEXPLAINABLE WEIGHT LOSS, FEVER, CHILLS, NEW CHANGES ON HER URINARY OR BOWEL CONTROL. FALL RISK SCREENING: SCREENING :NO FALLS IN THE PAST YEAR CURRENT MEDICATIONS TAKING METROGEL 1 % GEL 1 APPLICATION TO AFFECTED AREA EXTERNALLY FACE ONCE A DAY TAKING VITAMIN D 2000 UNIT TABLET 1 CAPSULE ORALLY ONCE A DAY TAKING PROTOPIC 0.03 % OINTMENT 1 APPLICATION TO AFFECTED AREA EXTERNALLY FINGERS ARMS TWICE A DAY TAKING CLOBETASOL PROPIONATE 0.05 % CREAM 1 APPLICATION TO AFFECTED AREA EXTERNALLY FINGERS ARMS TWICE A DAY NEEDED FOR FLARE-UPS TAKING EPIPEN 1 MG/ML DEVICE DIRECTED INTRAMUSCULAR NEEDED TAKING MULTIVITAL WAINWRIGHT - TABLET 2 CAP ORALLY ONCE DAILY, NOTES: WITH FOLIC ACID 800MCG TAKING CALCIUM CITRATE 250 MG TABLET 4 TABLETS ORALLY 2 TABS AT LUNCH AND 2 TABS AT DINNER TAKING TYLENOL 8 HOUR 650 MG TABLET EXTENDED RELEASE 2 TABLETS NEEDED ORALLY EVERY 8 HRS TAKING LEVOTHYROXINE SODIUM 50 MCG TABLET 1 TABLET ON AN EMPTY STOMACH IN THE MORNING ORALLY ONCE A DAY TAKING HYDROCODONE-ACETAMINOPHEN 5-325 MG TABLET 1 TABLET NEEDED ORALLY FOR PAIN Q4H PRN MDD4 TAKING GABAPENTIN 400 MG CAPSULE 1 CAPSULE ORALLY FOUR TIMES DAILY FOR PAIN MDD4 TAKING VITAMIN B12 100 MCG TABLET ORALLY 500 MG ONCE DAILY TAKING FOLIC ACID 800 MCG TABLET PART OF MULTI ORALLY ONCE A DAY TAKING TIZANIDINE HCL 4 MG TABLET 1 TABLET NEEDED ORALLY BEFORE BEDTIME MAY REPEAT IN 4 HRS TAKING TRAMADOL HCL 50 MG TABLET 1 TABLET NEEDED ORALLY ( CODE D FOR CHRONIC PAIN) EVERY 6 HRS PRN FOR PAIN MDD3 TAKING OXYCODONE HCL 5 MG TABLET 1 TABLET ORALLY (FOR POST OPERATIVE PAIN ) EVERY 4 HRS PRN FOR PAIN MDD6 NOT-TAKING ALBUTEROL SULFATE HFA 108 (90 BASE) MCG/ACT AEROSOL SOLUTION 2 PUFFS INHALATION FOUR TIMES A DAY NEEDED NOT-TAKING KEFLEX 500 MG CAPSULE 1 CAPSULE ORALLY THREE TIMES DAILY MEDICATION LIST REVIEWED AND RECONCILED WITH THE PATIENT PAST MEDICAL HISTORY ASTHMA (INACTIVE SINCE CHILDHOOD) ATOPIC DERMATITIS BACK PAIN ALLERGIC RHINITIS, CAUSE UNSPECIFIED OBESITY, UNSPECIFIED UNSPECIFIED SINUSITIS (CHRONIC) UNSPECIFIED VITAMIN D 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 ALLERGY HEART MURMUR DIET CONTROLLED DIABETES TYPE 2 ALLERGIES CODEINE PHOSPHATE (FOR ALLERGIES USE ONLY): HIVES: ALLERGY ALMONDS, PECANS, BRAZIL NUTS: ANAPHYLAXIS: ALLERGY PEACHES AND PARESH CHERRIES: ANGIOEDEMA: ALLERGY BEE STINGS: SWELLING AT STING SITE: ALLERGY SURGICAL HISTORY GASTRIC BYPASS 05/2015 LAMINECTOMY L5/S1 05/2014 HYSTERETOMY 08/1997 OOPHARECTOMY RIGHT 02/1997 BREAST REDUCTION 08/2000 DORSAL COLUMN STIMULATOR 06/2017 SOCIAL HISTORY GENERAL: TOBACCO USE ARE YOU A:NONSMOKER LUNG CANCER SCREENING SMOKING STATUS:NON SMOKER ALCOHOL SCREENING POINTS1 INTERPRETATIONNEGATIVE DENOMINATIONAL [id number] OTHER LANGUAGE LANGUAGES SPOKEN:CHINESE EDUCATION LEVEL OF EDUCATION:NOT FINISHED COLLEGE LEARNING BARRIERS / SPECIAL NEEDS BARRIERS TO LEARNING?NO HEARING IMPAIRED?NO VISION IMPAIRED?YES :CORRECTIVE LENSES COGNITIVELY IMPAIRED?NO READINESS TO LEARN?YES LEARNING PREFERENCES?YES :BOOKLETS, HANDOUTS PAIN CLINIC PFS, CLERGY, PUBLIC HEALTH REFERRALS PFS REFERRAL NEEDED?NO CLERGY REFERRAL NEEDED?NO PUBLIC HEALTH REFERRAL NEEDED?NO WAS THE PROVIDER NOTIFIED OF ANY PERTINENT INFO?NO HAS THE PATIENT BEEN EDUCATED REGARDING HIS/HER PLAN OF CARE?YES HAS THE PATIENT BEEN EDUCATED REGARDING PAIN, THE RISK FOR PAIN, THE IMPORTANCE OF EFFECTIVE PAIN MANAGEMENT, AND THE PAIN ASSESSMENT PROCESS?YES PATIENT: ____. ADVANCE DIRECTIVES HEALTH CARE PROXY?NO DO YOU HAVE A DNR?NO LIVING WILL?NO POWER OF REGULATOR MECHANIC?NO HOSPITALIZATION/MAJOR DIAGNOSTIC PROCEDURE HOSPITALIZATIONS RELATED TO SURGERY AND CHILDBIRTH REVIEW OF SYSTEMS REVIEWED BY: PROVIDER: BERHANE BURDICK MD . CONSTITUTIONAL: ANY CHANGE IN YOUR MEDICAL CONDITION? NO . CHILLS NO . FEVER NO . INFECTION: DO YOU HAVE NEW INFECTIONS? NO . DO YOU HAVE HISTORY OF MRSA? NO . MUSCULOSKELETAL: ANY NEW PATTERNS OF PAIN OR NUMBNESS? NO . GASTROENTEROLOGY: ANY NEW CHANGE IN BOWEL CONTROL? NO . GENITOURINARY: ANY NEW CHANGE IN BLADDER CONTROL? NO . IS THERE A CHANCE YOU COULD BE ? NO . HEMATOLOGY/LYMPH: DO YOU TAKE ANY BLOOD THINNERS? (FOR EXAMPLE- COUMADIN, PLAVIX, AGGRENOX, PLATEL, PRADAXA, OR XARELTO) NO . WHEN WAS YOUR LAST DOSE? DATE: TIME: . NEUROLOGY: HAVE YOU FALLEN IN THE PAST 6 MONTHS? NO . ANY NEW EXTREMITY NUMBNESS OR WEAKNESS? NO . CARDIOLOGY: DO YOU HAVE A PACEMAKER OR DEFIBRILLATOR? NO . RESPIRATORY: HAVE YOU BEEN SICK IN THE PAST WEEK? NO . FEVER NO . FLU LIKE SYMPTOMS? NO . COUGH NO . INTEGUMENTARY: DO YOU HAVE ANY RASHES OR OPEN SORES? NO . ALLERGIC/IMMUNO: ARE YOU ALLERGIC TO SHELLFISH OR IV DYE? NO . ANY NEW ALLERGIES? NO . PSYCHIATRIC: DO YOU HAVE THOUGHTS OF HURTING YOURSELF OR SOMEONE ELSE? NO . ARE YOU ABUSED, NEGLECTED, OR IN AN UNSAFE ENVIRONMENT? NO . ENDOCRINOLOGY: ARE YOU DIABETIC? YES . OTHER: DO YOU NEED ANY PRESCRIPTIONS? YES, CONTINUE W TRAMADOL? FINISH GABAPENTIN & TIZANIDINE? . IF YES, PLEASE LIST: ____ . ANY NEW PROBLEMS WITH YOUR MEDICATIONS? NO . WHEN DID YOU LAST EAT? ____ . WHEN DID YOU LAST DRINK? ____ . WHAT DID YOU LAST DRINK? ____ . NAME OF PERSON DRIVING YOU HOME? ____ . DO YOU HAVE ANY OTHER QUESTIONS OR CONCERNS NO . EXAMINATION : PATIENT IS ALERT O X 3 AND COOPERATIVE. TENDERNESS WHERE THE BATTERY IS LOCATED. SCARS ARE PINK AND NO SIGN OF INFECTION. LUNGS CLEAR. ASSESSMENTS POSTLAMINECTOMY SYNDROME, NOT ELSEWHERE CLASSIFIED - M96.1 (PRIMARY) TREATMENT POSTLAMINECTOMY SYNDROME, NOT ELSEWHERE CLASSIFIED REFILL TRAMADOL HCL TABLET, 50 MG, 1 TABLET NEEDED, ORALLY ( CODE D FOR CHRONIC PAIN), EVERY 6 HRS PRN FOR PAIN MDD3, 30 DAYS, 60, REFILLS 0 NOTES: WE DISCUSSED SEVERAL ISSUES WITH MRS. VÁZQUEZ' PAIN MANAGEMENT CASE. AT THIS TIME THE PATIENT REPORTS DOING VERY FROM THE PERMANENT DCS. PATIENT STATES SHE IS USING PAIN MEDICATION DUE TO POST OPERATIVE PAIN BUT THE PAIN DOWN THE LEG IS BEING COVERED BY THE DCS. MRS. VÁZQUEZ WILL TRY TO DECREASE THE USE OF TIZANIDINE AND WAS TOLD TO DECREASE THE GABAPENTIN SLOWLY AT THIS TIME. PATIENT WAS REMINDED TO CONTINUE TO SPEAK WITH [employer] FOR ADJUSTMENTS. PATIENT WAS NOTIFIED TO CALL IF ANY SIGN OF INFECTION APPEARS. PATIENT WILL FOLLOW UP IN 1 MONTH. INSTRUCTIONS WERE GIVEN, QUESTIONS WERE ANSWERED, PATIENT REPORTS UNDERSTANDING AND AGREES WITH THE PLAN. I, EWELINA JOSEPH, DOCUMENTED THE ABOVE INFORMATION ACTING A SCRIBE FOR DR. BURDICK. I HAVE REVIEWED THE ABOVE DOCUMENT, WRITTEN BY EWELINA MITCHELLIBAltagracia AND I VERIFY THAT IT IS ACCURATE. PROCEDURE CODES G8427 DOC MEDS VERIFIED W/PT OR RE G8730 PAIN ASSESS POS TOOL F/U PLAN DOC DISPOSITION & COMMUNICATION FOLLOW UP 4 WEEKS ELECTRONICALLY SIGNED BY BERHANE BURDICK MD ON 07/31/2017 AT 05:55 PM EST DISCLAIMER : THIS IS A VISIT SUMMARY EXTRACTED FROM THE [employer] CHART. IT IS NOT A COPY OF THE [employer] PROGRESS NOTE. VIV
== END ==
LOC: M PAIN 15:15
PROVIDERS: ATTEND Anesthesiology
DX: M96.1 Postlaminectomy syndrome, not elsewhere classified (principal); M54.5 Low back pain; E11.9 Type 2 diabetes mellitus without complications; J30.89 Other allergic rhinitis; E55.9 Vitamin D deficiency, unspecified; Z79.891 Long term (current) use of opiate analgesic; Z79.899 Other long term (current) drug therapy; Z88.5 Allergy status to narcotic agent; Z91.018 Allergy to other foods; Z91.010 Allergy to peanuts; Z91.030 Bee allergy status

== ENCOUNTER → 2017-07-31 | Outpatient (CLI) | payer OTHER ==
--- NOTE | 2017-08-15 01:32 | ECWPNPC ---
PATIENT NAME: ALEJANDRINA VÁZQUEZ : 1965 GENDER: FEMALE VISIT DATE: 07/31/2017 DISCHARGE DATE: 07/31/171711 VISIT LOCKED DATE TIME: PHYSICIAN: BERHANE BURDICK RESOURCE: BERHANE BURDICK REASON FOR APPOINTMENT 1. LOW BACK PAIN HISTORY OF PRESENT ILLNESS HISTORY OF PRESENT ILLNESS: PAIN THE PATIENT DESCRIBES THE PAIN... 52 YEAR OLD FEMALE PATIENT WITH HISTORY OF CHRONIC LOW BACK PAIN. PATIENT DESCRIES THE PAIN SORE AND TENDER WITH A PAIN SCORE OF 3/10. PATIENT RECEIVED A PERMANENT DCS ON 07/02/2017 AND STATES HER PAIN IS POST OPERATIVE PAIN AND FROM THE BATTERY. MRS. VÁZQUEZ REPORTS FEELING AN ACHINESS IN HER HIPS WHILE SHE'S CHARGING HER BATTERY. PATIENT DENIES UNEXPLAINABLE WEIGHT LOSS, FEVER, CHILLS, NEW CHANGES ON HER URINARY OR BOWEL CONTROL. FALL RISK SCREENING: SCREENING :NO FALLS IN THE PAST YEAR CURRENT MEDICATIONS TAKING METROGEL 1 % GEL 1 APPLICATION TO AFFECTED AREA EXTERNALLY FACE ONCE A DAY PRN TAKING VITAMIN D 2000 UNIT TABLET 1 CAPSULE ORALLY ONCE A DAY TAKING PROTOPIC 0.03 % OINTMENT 1 APPLICATION TO AFFECTED AREA EXTERNALLY FINGERS ARMS TWICE A DAY PRN TAKING CLOBETASOL PROPIONATE 0.05 % CREAM 1 APPLICATION TO AFFECTED AREA EXTERNALLY FINGERS ARMS TWICE A DAY NEEDED FOR FLARE-UPS TAKING EPIPEN 1 MG/ML DEVICE DIRECTED INTRAMUSCULAR NEEDED TAKING MULTIVITAL BOIS FORTE - TABLET 2 CAP ORALLY ONCE DAILY, NOTES: WITH FOLIC ACID 800MCG TAKING CALCIUM CITRATE 250 MG TABLET 4 TABLETS ORALLY 2 TABS AT LUNCH AND 2 TABS AT DINNER TAKING TYLENOL 8 HOUR 650 MG TABLET EXTENDED RELEASE 2 TABLETS NEEDED ORALLY EVERY 8 HRS TAKING LEVOTHYROXINE SODIUM 50 MCG TABLET 1 TABLET ON AN EMPTY STOMACH IN THE MORNING ORALLY ONCE A DAY TAKING HYDROCODONE-ACETAMINOPHEN 5-325 MG TABLET 1 TABLET NEEDED ORALLY FOR PAIN Q4H PRN MDD4 TAKING GABAPENTIN 400 MG CAPSULE 1 CAPSULE ORALLY FOUR TIMES DAILY FOR PAIN MDD4 TAKING VITAMIN B12 500 MCG TABLET ORALLY ONCE A DAY TAKING FOLIC ACID 800 MCG TABLET PART OF MULTI ORALLY ONCE A DAY TAKING TIZANIDINE HCL 4 MG TABLET 1 TABLET NEEDED ORALLY BEFORE BEDTIME MAY REPEAT IN 4 HRS, NOTES: TAKING ONLY ONE AT HS TAKING TRAMADOL HCL 50 MG TABLET 1 TABLET NEEDED ORALLY ( CODE D FOR CHRONIC PAIN) EVERY 6 HRS PRN FOR PAIN MDD3 TAKING BIOTIN 13219 MCG TABLET DISINTEGRATING WITH KERATIN 1 TABLET ORALLY DAILY DISCONTINUED OXYCODONE HCL 5 MG TABLET 1 TABLET ORALLY (FOR POST OPERATIVE PAIN ) EVERY 4 HRS PRN FOR PAIN MDD6 DISCONTINUED ALBUTEROL SULFATE HFA 108 (90 BASE) MCG/ACT AEROSOL SOLUTION 2 PUFFS INHALATION FOUR TIMES A DAY NEEDED DISCONTINUED KEFLEX 500 MG CAPSULE 1 CAPSULE ORALLY THREE TIMES DAILY MEDICATION LIST REVIEWED AND RECONCILED WITH THE PATIENT PAST MEDICAL HISTORY ASTHMA (INACTIVE SINCE CHILDHOOD) ATOPIC DERMATITIS BACK PAIN ALLERGIC RHINITIS, CAUSE UNSPECIFIED OBESITY, UNSPECIFIED UNSPECIFIED SINUSITIS (CHRONIC) UNSPECIFIED VITAMIN D 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 ALLERGY HEART MURMUR DIET CONTROLLED DIABETES TYPE 2 ALLERGIES CODEINE PHOSPHATE (FOR ALLERGIES USE ONLY): HIVES: ALLERGY ALMONDS, PECANS, BRAZIL NUTS: ANAPHYLAXIS: ALLERGY PEACHES AND PARESH CHERRIES: ANGIOEDEMA: ALLERGY BEE STINGS: SWELLING AT STING SITE: ALLERGY SOCIAL HISTORY GENERAL: TOBACCO USE ARE YOU A:NONSMOKER LUNG CANCER SCREENING SMOKING STATUS:NON SMOKER ALCOHOL SCREENING DID YOU HAVE A DRINK CONTAINING ALCOHOL IN THE PAST YEAR?YES HOW OFTEN DID YOU HAVE A DRINK CONTAINING ALCOHOL IN THE PAST YEAR?MONTHLY OR LESS (1 POINT) HOW MANY DRINKS DID YOU HAVE ON A TYPICAL DAY WHEN YOU WERE DRINKING IN THE PAST YEAR?1 OR 2 (0 POINTS) POINTS1 INTERPRETATIONNEGATIVE RECREATIONAL DRUG USE DRUG USE?NO CAFFEINE CAFFEINE USE?YES HOW OFTEN AND HOW MUCH? 1-2 CUPS COFFEE/DAY DIET: REGULAR. EXERCISE: NO REGULAR EXERCISE. RESTORATION [id number] OTHER LANGUAGE LANGUAGES SPOKEN:WELSH EDUCATION LEVEL OF EDUCATION:NOT FINISHED COLLEGE LEARNING BARRIERS / SPECIAL NEEDS BARRIERS TO LEARNING?NO HEARING IMPAIRED?NO VISION IMPAIRED?YES :CORRECTIVE LENSES COGNITIVELY IMPAIRED?NO READINESS TO LEARN?YES LEARNING PREFERENCES?YES :BOOKLETS, HANDOUTS PAIN CLINIC PFS, CLERGY, PUBLIC HEALTH REFERRALS PFS REFERRAL NEEDED?NO CLERGY REFERRAL NEEDED?NO PUBLIC HEALTH REFERRAL NEEDED?NO WAS THE PROVIDER NOTIFIED OF ANY PERTINENT INFO?NO HAS THE PATIENT BEEN EDUCATED REGARDING HIS/HER PLAN OF CARE?YES HAS THE PATIENT BEEN EDUCATED REGARDING PAIN, THE RISK FOR PAIN, THE IMPORTANCE OF EFFECTIVE PAIN MANAGEMENT, AND THE PAIN ASSESSMENT PROCESS?YES REVIEWED BY: 07/31/15 1211 AD. PATIENT: ____. ADVANCE DIRECTIVES HEALTH CARE PROXY?NO WOULD YOU LIKE MORE INFORMATION?NO DO YOU HAVE A DNR?NO WOULD YOU LIKE MORE INFORMATION?NO LIVING WILL?NO WOULD YOU LIKE MORE INFORMATION?NO POWER OF LASER BEAM CUTTER?NO WOULD YOU LIKE MORE INFORMATION?NO DOMESTIC VIOLENCE DO YOU FEEL SAFE IN YOUR ENVIRONMENT?YES REVIEW OF SYSTEMS REVIEWED BY: PROVIDER: BERHANE BURDICK MD . CONSTITUTIONAL: ANY CHANGE IN YOUR MEDICAL CONDITION? NO . CHILLS NO . FEVER NO . INFECTION: DO YOU HAVE NEW INFECTIONS? NO . DO YOU HAVE HISTORY OF MRSA? NO . MUSCULOSKELETAL: ANY NEW PATTERNS OF PAIN OR NUMBNESS? NO . GASTROENTEROLOGY: ANY NEW CHANGE IN BOWEL CONTROL? NO . GENITOURINARY: ANY NEW CHANGE IN BLADDER CONTROL? NO . IS THERE A CHANCE YOU COULD BE ? NO . HEMATOLOGY/LYMPH: DO YOU TAKE ANY BLOOD THINNERS? (FOR EXAMPLE- COUMADIN, PLAVIX, AGGRENOX, PLATEL, PRADAXA, OR XARELTO) NO . WHEN WAS YOUR LAST DOSE? DATE: TIME: . NEUROLOGY: HAVE YOU FALLEN IN THE PAST 6 MONTHS? NO . ANY NEW EXTREMITY NUMBNESS OR WEAKNESS? NO . CARDIOLOGY: DO YOU HAVE A PACEMAKER OR DEFIBRILLATOR? NO . RESPIRATORY: HAVE YOU BEEN SICK IN THE PAST WEEK? NO . FEVER NO . FLU LIKE SYMPTOMS? NO . COUGH NO . INTEGUMENTARY: DO YOU HAVE ANY RASHES OR OPEN SORES? NO . ALLERGIC/IMMUNO: ARE YOU ALLERGIC TO SHELLFISH OR IV DYE? NO . ANY NEW ALLERGIES? NO . PSYCHIATRIC: DO YOU HAVE THOUGHTS OF HURTING YOURSELF OR SOMEONE ELSE? NO . ARE YOU ABUSED, NEGLECTED, OR IN AN UNSAFE ENVIRONMENT? NO . ENDOCRINOLOGY: ARE YOU DIABETIC? YES, DIET CONTROLLED . OTHER: DO YOU NEED ANY PRESCRIPTIONS? YES . IF YES, PLEASE LIST: GABAPENTIN . ANY NEW PROBLEMS WITH YOUR MEDICATIONS? NO . WHEN DID YOU LAST EAT? ____ . WHEN DID YOU LAST DRINK? ____ . WHAT DID YOU LAST DRINK? ____ . NAME OF PERSON DRIVING YOU HOME? ____ . DO YOU HAVE ANY OTHER QUESTIONS OR CONCERNS YES, HAS DISCOMFORT WHILE CHARGING BATTERY FOR STIMULATOR. . VITAL SIGNS WT 123 LBS, HT 64 IN, BMI 21.11 INDEX, BP 116/60 MM HG, HR 71 /MIN, RR 16 /MIN, TEMP 98.1 F, OXYGEN SAT % 97%, SAFE IN ENV? (Y/N) Y, NA INITIALS SC 15:17, REVIEWED BY: EXAMINATION : PATIENT IS ALERT O X 3 AND COOPERATIVE. SCARS ARE DRY AND NO SIGN OF INFECTION. LUNGS CLEAR. 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 TREATMENT POSTLAMINECTOMY SYNDROME, NOT ELSEWHERE CLASSIFIED REFILL GABAPENTIN CAPSULE, 400 MG, 1 CAPSULE, ORALLY, FOUR TIMES DAILY FOR PAIN MDD4, 30 DAY(S), 120, REFILLS 2 NOTES: WE DISCUSSED SEVERAL ISSUES WITH MRS. VÁZQUEZ' PAIN MANAGEMENT CASE. CLINICAL NOTES: WE DISCUSSED SEVERAL ISSUES WITH MRS. VÁZQUEZ'S PAIN MANAGEMENT CASE. AT THIS TIME THE PATIENT WILL CONTINUE TO USE GABAPENTIN FOR THE NEUROPATHIC PAIN. PATIENT REPORTS THE DCS AIDING IN PAIN RELIEF AND WAS REMINDED TO CONTINUOUSLY HAVE THE MACHINE PROGRAMMED TO CONTINUE TO WORK AT [employer] E[employer]ICI[employer]. W DISCUSSED ALTERNATIVES FOR THE HIP PAIN WHILE CHARGING THE DEVICE. PATIENT WILL FOLLOW UP IN ONE MONTH. INSTRUCTIONS WERE GIVEN, QUESTIONS WERE ANSWERED, PATIENT REPORTS UNDERSTANDING AND AGREES WITH THE PLAN. I, EWELINA JOSEPH, DOCUMENTED THE ABOVE INFORMATION ACTING A SCRIBE FOR DR. BURDICK. I HAVE REVIEWED THE ABOVE DOCUMENT, WRITTEN BY EWELINA MITCHELLIBAltagracia AND I VERIFY THAT IT IS ACCURATE. PROCEDURE CODES FA211 ESTABILISHED PATIENT [facility] CHARGE DISPOSITION & COMMUNICATION FOLLOW UP 6 WEEKS ELECTRONICALLY SIGNED BY BERHANE BURDICK MD ON 08/14/2017 AT 03:02 PM EST DISCLAIMER : THIS IS A VISIT SUMMARY EXTRACTED FROM THE [employer] CHART. IT IS NOT A COPY OF THE [employer] PROGRESS NOTE. VIV
== END ==
LOC: M PAIN 15:15
PROVIDERS: ATTEND Anesthesiology
DX: M96.1 Postlaminectomy syndrome, not elsewhere classified (principal); M51.16 Intervertebral disc disorders with radiculopathy, lumbar region; J30.9 Allergic rhinitis, unspecified; Z88.5 Allergy status to narcotic agent; Z91.010 Allergy to peanuts; Z91.018 Allergy to other foods; Z91.030 Bee allergy status; Z79.891 Long term (current) use of opiate analgesic; Z79.899 Other long term (current) drug therapy

== ENCOUNTER → 2017-08-31 | Outpatient (CLI) | payer OTHER | LOC: M PAIN 09:00 | DX: M96.1 Postlaminectomy syndrome, not elsewhere classified (principal); G89.29 Other chronic pain; M54.5 Low back pain; Z79.891 Long term (current) use of opiate analgesic; Z79.899 Other long term (current) drug therapy; Z88.5 Allergy status to narcotic agent; Z91.010 Allergy to peanuts; Z91.018 Allergy to other foods; Z91.030 Bee allergy status | CPT/HCPCS: G0463 ==

== ENCOUNTER → 2017-09-17 | Outpatient (CLI) | payer OTHER | LOC: M PAIN 15:00 | DX: M96.1 Postlaminectomy syndrome, not elsewhere classified (principal); Z79.891 Long term (current) use of opiate analgesic; Z79.899 Other long term (current) drug therapy; Z98.84 Bariatric surgery status; Z96.9 Presence of functional implant, unspecified; Z88.5 Allergy status to narcotic agent; Z91.030 Bee allergy status; Z91.018 Allergy to other foods | CPT/HCPCS: G0463 ==

== ENCOUNTER → 2017-10-11 | Outpatient (CLI) | payer BC | LOC: M WHC 07:34 | DX: Z12.31 Encounter for screening mammogram for malignant neoplasm of breast (principal) ==

== ENCOUNTER → 2017-10-16 | Outpatient (CLI) | payer OTHER | LOC: M PAIN 09:30 | DX: M96.1 Postlaminectomy syndrome, not elsewhere classified (principal); E11.9 Type 2 diabetes mellitus without complications; J30.9 Allergic rhinitis, unspecified; Z79.891 Long term (current) use of opiate analgesic; Z79.899 Other long term (current) drug therapy; Z98.84 Bariatric surgery status; Z88.8 Allergy status to other drugs, medicaments and biological substances; Z91.030 Bee allergy status; Z91.010 Allergy to peanuts; Z91.018 Allergy to other foods; Z97.8 Presence of other specified devices | CPT/HCPCS: G0463 ==

== ENCOUNTER → 2018-02-11 | Outpatient (CLI) | payer OTHER | LOC: M PAIN 08:30 | DX: M96.1 Postlaminectomy syndrome, not elsewhere classified (principal); E11.9 Type 2 diabetes mellitus without complications; R01.1 Cardiac murmur, unspecified; J30.9 Allergic rhinitis, unspecified; Z79.899 Other long term (current) drug therapy; Z88.5 Allergy status to narcotic agent; Z91.030 Bee allergy status; Z91.018 Allergy to other foods; Z91.010 Allergy to peanuts; Z87.09 Personal history of other diseases of the respiratory system; Z98.84 Bariatric surgery status | CPT/HCPCS: G0463 ==

== ENCOUNTER → 2018-06-11 | Outpatient (REF) | payer OTHER | LOC: M LAB REF 16:51 | DX: N76.0 Acute vaginitis (principal) ==

== ENCOUNTER → 2018-07-02 | Outpatient (CLI) | payer OTHER | LOC: M PAIN 11:00 | DX: M96.1 Postlaminectomy syndrome, not elsewhere classified (principal); M51.27 Other intervertebral disc displacement, lumbosacral region; L20.9 Atopic dermatitis, unspecified; J30.9 Allergic rhinitis, unspecified; E55.9 Vitamin D deficiency, unspecified; E11.9 Type 2 diabetes mellitus without complications; R01.1 Cardiac murmur, unspecified; J32.9 Chronic sinusitis, unspecified; M51.16 Intervertebral disc disorders with radiculopathy, lumbar region; Z91.018 Allergy to other foods; Z98.84 Bariatric surgery status; Z79.891 Long term (current) use of opiate analgesic; Z79.899 Other long term (current) drug therapy; Z88.5 Allergy status to narcotic agent; Z91.030 Bee allergy status | CPT/HCPCS: G0463 ==

== ENCOUNTER → 2018-09-26 | Outpatient (REF) | payer OTHER ==
[~2018-09-26] MED LIST changes: +EPIN0.3I11 SUBQ; -EPIN0.3I6 SUBQ; -GABA-283 PO; +GABA-845 PO; +TIZA4CAP PO; -TIZA4CAP3 PO
== END ==
LOC: M SFHCLERA 15:50
PROVIDERS: ATTEND Dermatology
DX: D23.39 Other benign neoplasm of skin of other parts of face (principal)

== ENCOUNTER → 2018-10-10 | Outpatient (CLI) | payer OTHER ==
--- NOTE | 2018-10-28 00:10 | ECWPNPC ---
PATIENT NAME: ALEJANDRINA VÁZQUEZ : 1965 GENDER: FEMALE VISIT DATE: 10/10/2018 DISCHARGE DATE: 10/10/181717 VISIT LOCKED DATE TIME: PHYSICIAN: BERHANE BURDICK MD RESOURCE: BERHANE BURDICK MD REASON FOR APPOINTMENT 1. MEDS- PATIENT HAS RETURNED IN WR HISTORY OF PRESENT ILLNESS HISTORY OF PRESENT ILLNESS: PAIN THE PATIENT DESCRIBES THE PAIN... 53 YEAR OLD FEMALE PATIENT WITH A HISTORY OF CHRONIC LOW BACK PAIN. THE PATIENT DESCRIBES THE PAIN ACHING, SORE, TENDER, AND CONTINUOUS WITH A PAIN SCORE OF 2-5/10 DEPENDING ON PHYSICAL ACTIVITY. THE PATIENT SAYS THE PAIN STARTS IN HER LOW BACK AND RADIATES DOWN HER RIGHT LEG. THE PATIENT HAS A DCS IMPLANT AND SAYS THAT IT HAS BEEN HELPING SINCE SHE RECENTLY HAD ADJUSTMENTS. THE PATIENT IS CURRENTLY USING GABAPENTIN FOR NEUROPATHIC PAIN AND TIZANIDINE FOR SPASMS AND PAIN. THE PATIENT SAYS THE USE OF THE MEDICATIONS AND THE DCS IMPLANT HELP HER REMAIN MOBILE AND FUNCTIONAL. PATIENT DENIES UNEXPLAINABLE WEIGHT LOSS, FEVER, CHILLS, NEW CHANGES ON HER URINARY OR BOWEL CONTROL. FALL RISK SCREENING: SCREENING : NO FALLS IN THE PAST YEAR. CURRENT MEDICATIONS TAKING METROGEL 1 % GEL 1 APPLICATION TO AFFECTED AREA EXTERNALLY FACE ONCE A DAY PRN TAKING VITAMIN D 2000 UNIT TABLET 1 CAPSULE ORALLY ONCE A DAY TAKING EPIPEN 1 MG/ML DEVICE DIRECTED INTRAMUSCULAR NEEDED TAKING MULTIVITAL [place] - TABLET 2 CAP ORALLY ONCE DAILY, NOTES: WITH FOLIC ACID 800MCG TAKING CALCIUM CITRATE 250 MG TABLET 4 TABLETS ORALLY 2 TABS AT LUNCH AND 2 TABS AT DINNER TAKING TYLENOL 8 HOUR 650 MG TABLET EXTENDED RELEASE 2 TABLETS NEEDED ORALLY EVERY 8 HRS TAKING LEVOTHYROXINE SODIUM 50 MCG TABLET 1 TABLET ON AN EMPTY STOMACH IN THE MORNING ORALLY ONCE A DAY TAKING VITAMIN B12 500 MCG TABLET ORALLY ONCE A DAY TAKING FOLIC ACID 800 MCG TABLET PART OF MULTI ORALLY ONCE A DAY TAKING BIOTIN 52152 MCG TABLET DISINTEGRATING WITH KERATIN 1 TABLET ORALLY DAILY TAKING CLARITIN 10 MG TABLET 1 TABLET ORALLY ONCE A DAY, NOTES: TAKES WHEN NEEDED TAKING TRAMADOL HCL 50 MG TABLET 1 TABLET NEEDED ORALLY EVERY 6 HRS PRN FOR PAIN MDD2, NOTES: NONE RECENTLY TAKING EUCRISA 2 % OINTMENT 1 APPLICATION TO AFFECTED AREA EXTERNALLY TWICE A DAY, NOTES: WHEN NEEDED TAKING TIZANIDINE HCL 4 MG TABLET 1 TABLET NEEDED ORALLY BEFORE BEDTIME MAY REPEAT IN 4 HRS TAKING DESONIDE 0.05 % CREAM 1 APPLICATION TO AFFECTED AREA EXTERNALLY TWICE A DAY TO SCALP AND FACE PINK FLAKY RASH TAKING ATARAX 25 MG TABLET DIRECTED PRN ITCH ORAL QHS TAKE 1 PRN ITCH EVERY OTHER DAY TAKING GABAPENTIN 300 MG CAPSULE 1 CAPSULE ORALLY FOUR TIMES DAILY FOR PAIN MDD4 TAKING CICLOPIROX 0.77 % GEL 1 APPLICATION TO AFFECTED AREA EXTERNALLY NEEDED TO AFFECTED AREA TAKING PROTOPIC 0.03 % OINTMENT 1 APPLICATION TO AFFECTED AREA EXTERNALLY FINGERS ARMS TWICE A DAY PRN TAKING CLOBETASOL PROPIONATE 0.05 % CREAM 1 APPLICATION TO AFFECTED AREA EXTERNALLY FINGERS ARMS TWICE A DAY NEEDED FOR FLARE-UPS NOT-TAKING DIFLUCAN 200 MG TABLET 1 TABLET ORALLY WEEKLY BY MOUTH NOT-TAKING HYDROCODONE-ACETAMINOPHEN 5-325 MG TABLET 1 TABLET NEEDED ORALLY FOR PAIN Q4H PRN MDD4 MEDICATION LIST REVIEWED AND RECONCILED WITH THE PATIENT PAST MEDICAL HISTORY ASTHMA (INACTIVE SINCE CHILDHOOD) ATOPIC DERMATITIS BACK PAIN ALLERGIC RHINITIS, CAUSE UNSPECIFIED OBESITY, UNSPECIFIED UNSPECIFIED SINUSITIS (CHRONIC) UNSPECIFIED VITAMIN D 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 ALLERGY HEART MURMUR DIET CONTROLLED DIABETES TYPE 2 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 ALLERGIES CODEINE PHOSPHATE (FOR ALLERGIES USE ONLY): HIVES: ALLERGY ALMONDS, PECANS, BRAZIL NUTS: ANAPHYLAXIS: ALLERGY PEACHES AND PARESH CHERRIES: ANGIOEDEMA: ALLERGY BEE STINGS: SWELLING AT STING SITE: ALLERGY WOOL: ALLERGY SURGICAL HISTORY GASTRIC BYPASS 05/2015 LAMINECTOMY L5/S1 05/2014 HYSTERETOMY 08/1997 OOPHORECTOMY RIGHT 02/1997 BREAST REDUCTION 08/2000 DORSAL COLUMN STIMULATOR 07/02/2017 FAMILY HISTORY FATHER: 68 YRS, COPD, DIAGNOSED WITH OTHER MOTHER: ALIVE, TESTED (+) FOT TB DUE TO EXPOSURE, DOESN'T HAVE MATERNAL GRAND MOTHER: DIABETES TYPE I, DIAGNOSED WITH DIABETES 1 SON(S) , 2 DAUGHTER(S) - HEALTHY. DENIES FAMILY HISTORY OF SKIN CANCER. SOCIAL HISTORY GENERAL: TOBACCO USE ARE YOU A:NONSMOKER LUNG CANCER SCREENING SMOKING STATUS:NON SMOKER ALCOHOL SCREENING DID YOU HAVE A DRINK CONTAINING ALCOHOL IN THE PAST YEAR?YES HOW OFTEN DID YOU HAVE A DRINK CONTAINING ALCOHOL IN THE PAST YEAR?MONTHLY OR LESS (1 POINT) HOW MANY DRINKS DID YOU HAVE ON A TYPICAL DAY WHEN YOU WERE DRINKING IN THE PAST YEAR?1 OR 2 (0 POINTS) POINTS1 INTERPRETATIONNEGATIVE RECREATIONAL DRUG USE DRUG USE?NO CAFFEINE CAFFEINE USE?YES HOW OFTEN AND HOW MUCH? 1-2 CUPS COFFEE/DAY CHEONDOISM [id number] NONE LANGUAGE LANGUAGES SPOKEN:TRISTANIAN EDUCATION LEVEL OF EDUCATION:NOT FINISHED COLLEGE LEARNING BARRIERS / SPECIAL NEEDS CHANGE FROM LAST VISIT?NO BARRIERS TO LEARNING?NO HEARING IMPAIRED?NO VISION IMPAIRED?YES :CORRECTIVE LENSES COGNITIVELY IMPAIRED?NO READINESS TO LEARN?YES LEARNING PREFERENCES?YES :BOOKLETS, HANDOUTS LEARNING CAPABILITIES PRESENT?YES EMOTIONAL BARRIERS?NO SPECIAL DEVICES?NO PERSONAL INVESTMENT ADVISER NEEDED?NO DOMESTIC VIOLENCE DO YOU FEEL SAFE IN YOUR ENVIRONMENT?YES DIET: REGULAR. EXERCISE: NO REGULAR EXERCISE. PAIN CLINIC PFS, CLERGY, PUBLIC HEALTH REFERRALS PFS REFERRAL NEEDED?NO CLERGY REFERRAL NEEDED?NO PUBLIC HEALTH REFERRAL NEEDED?NO WAS THE PROVIDER NOTIFIED OF ANY PERTINENT INFO? N/A HAS THE PATIENT BEEN EDUCATED REGARDING HIS/HER PLAN OF CARE?YES HAS THE PATIENT BEEN EDUCATED REGARDING PAIN, THE RISK FOR PAIN, THE IMPORTANCE OF EFFECTIVE PAIN MANAGEMENT, AND THE PAIN ASSESSMENT PROCESS?YES ADVANCE DIRECTIVE ADVANCE DIRECTIVE DISCUSSED WITH PATIENT:YES 10/10/18 PT. DOES NOT HAVE ANY ADVANCED DIRECTIVES AND SHE DECLINES INFORMATION ON HCP AT THIS TIME. AD REVIEWED WITH PT 07/02/18 1124 BV10/10/18 REVIEWED WITH PT. AD. HOSPITALIZATION/MAJOR DIAGNOSTIC PROCEDURE HOSPITALIZATIONS RELATED TO SURGERY AND CHILDBIRTH REVIEW OF SYSTEMS REVIEWED BY: PROVIDER: BERHANE BURDICK MD . CONSTITUTIONAL: ANY CHANGE IN YOUR MEDICAL CONDITION? NO . CHILLS NO . FEVER NO . INFECTION: DO YOU HAVE NEW INFECTIONS? NO . DO YOU HAVE HISTORY OF MRSA? NO . MUSCULOSKELETAL: ANY NEW PATTERNS OF PAIN OR NUMBNESS? NO . GASTROENTEROLOGY: ANY NEW CHANGE IN BOWEL CONTROL? NO . GENITOURINARY: ANY NEW CHANGE IN BLADDER CONTROL? NO . IS THERE A CHANCE YOU COULD BE ? NO . HEMATOLOGY/LYMPH: DO YOU TAKE ANY BLOOD THINNERS? (FOR EXAMPLE- COUMADIN, PLAVIX, AGGRENOX, PLATEL, PRADAXA, OR XARELTO) NO . WHEN WAS YOUR LAST DOSE? DATE: TIME: . NEUROLOGY: HAVE YOU FALLEN IN THE PAST 12 MONTHS? NO . ANY NEW EXTREMITY NUMBNESS OR WEAKNESS? NO . CARDIOLOGY: DO YOU HAVE A PACEMAKER OR DEFIBRILLATOR? NO HAS DCS . RESPIRATORY: HAVE YOU BEEN SICK IN THE PAST WEEK? NO . FEVER NO . FLU LIKE SYMPTOMS? NO . COUGH NO . INTEGUMENTARY: DO YOU HAVE ANY RASHES OR OPEN SORES? NO . ALLERGIC/IMMUNO: ARE YOU ALLERGIC TO IV DYE? NO . ANY NEW ALLERGIES? NO . PSYCHIATRIC: DO YOU HAVE THOUGHTS OF HURTING YOURSELF OR SOMEONE ELSE? NO . ARE YOU ABUSED, NEGLECTED, OR IN AN UNSAFE ENVIRONMENT? NO . ENDOCRINOLOGY: ARE YOU DIABETIC? YES, DIET CONTROLLED . OTHER: DO YOU NEED ANY PRESCRIPTIONS? YES . IF YES, PLEASE LIST: GABAPENTIN . ANY NEW PROBLEMS WITH YOUR MEDICATIONS? NO . WHEN DID YOU LAST EAT? ____ . WHEN DID YOU LAST DRINK? ____ . WHAT DID YOU LAST DRINK? ____ . NAME OF PERSON DRIVING YOU HOME? ____ . DO YOU HAVE ANY OTHER QUESTIONS OR CONCERNS NO . VITAL SIGNS WT 128.2 LBS, HT 64 IN, BMI 22.00 INDEX, BP 123/58 MM HG, HR 66 /MIN, RR 18 /MIN, TEMP 98.1 F, OXYGEN SAT % 95%, SAFE IN ENV? (Y/N) Y, NA INITIALS SC 14:30, REVIEWED BY: AD. EXAMINATION GENERAL EXAMINATION: PATIENT IS ALERT O X 3 AND COOPERATIVE. 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 VÁZQUEZ'S PAIN MANAGEMENT CASE. THE PATIENT REPORTS THAT SHE IS DOING WELL, SO WE WILL CONTINUE WITH THE SAME MEDICATION REGIMENT AND SHE WILL CONTACT KEI FROM [employer] IF SHE NEEDS ANY ADJUSTMENTS TO HER DCS IMPLANT. THE PATIENT WILL FOLLOW UP IN 2 MONTHS. INSTRUCTIONS WERE GIVEN, QUESTIONS WERE ANSWERED, PATIENT REPORTS UNDERSTANDING AND AGREES WITH THE PLAN. I, PRATIBHA CHRISTENSEN, DOCUMENTED THE ABOVE INFORMATION ACTING A SCRIBE FOR DR. BURDICK. I HAVE REVIEWED THE ABOVE DOCUMENT, WRITTEN BY PRATIBHA MITCHELLIBAltagracia AND I VERIFY THAT IT IS ACCURATE. OTHERS REFILL GABAPENTIN CAPSULE, 300 MG, 1 CAPSULE, ORALLY, FOUR TIMES DAILY FOR PAIN MDD4, 30 DAY(S), 120, REFILLS 1 PROCEDURE CODES FA211 ESTABILISHED PATIENT [facility] FACILITY CHARGE [id number] CURRENT MEDS W/DOSAGES DOCUMENTED [id number] PAIN ASSESS POS TOOL F/U PLAN DOC DISPOSITION & COMMUNICATION FOLLOW UP 2 MONTHS ELECTRONICALLY SIGNED BY BERHANE BURDICK MD, MD ON 10/27/2018 AT 01:32 PM EST DISCLAIMER : THIS IS A VISIT SUMMARY EXTRACTED FROM THE [employer] CHART. IT IS NOT A COPY OF THE [employer] PROGRESS NOTE. VIV
== END ==
LOC: M PAIN 14:45
PROVIDERS: ATTEND Anesthesiology
DX: M96.1 Postlaminectomy syndrome, not elsewhere classified (principal); J30.9 Allergic rhinitis, unspecified; E11.9 Type 2 diabetes mellitus without complications; E55.9 Vitamin D deficiency, unspecified; Z79.899 Other long term (current) drug therapy; Z88.5 Allergy status to narcotic agent; Z91.018 Allergy to other foods; Z91.030 Bee allergy status; Z91.09 Other allergy status, other than to drugs and biological substances; Z98.84 Bariatric surgery status

== ENCOUNTER → 2018-10-15 | Outpatient (CLI) | payer BC ==
--- NOTE | 2018-10-15 09:21 | REPMRS ---
Patient History The patient states she had a clinical breast exam in 09/14 No known family history of cancer. Reductions of both breasts, 2003. Digital Woman Screen Mammo: October 15, 2018 - Exam #: [id number] Bilateral CC and MLO view(s) were taken. Technologist: Tri Be, Technologist Prior study comparison: October 11, 2017, digital woman screen mammo performed at [facility]. September 19, 2016, digital woman screen mammo performed at [facility]. October 07, 2015, digital woman screen mammo performed at [facility]. September 24, 2014, digital woman screen mammo performed at [facility]. FINDINGS: There are scattered fibroglandular densities. There has been no change in the appearance of the mammogram from the prior studies. There is a moderate amount of residual fibroglandular tissue which is fairly symmetric. There is no interval development of dominant mass, architectural distortion, or clustered microcalcification suggestive of malignancy. Large coarse benign appearing calcifications are again present in the right breast and represent fat necrosis, stable and a post reduction mammaplasty change seen on prior mammograms. This finding is near her scar from surgery and correlates to the stable palpable finding by patient description and prior evaluations. 3-D tomosynthesis shows no additional findings. No significant changes when compared with prior studies. Assessment: BI-RADS/ACR category 2 mammogram. Benign Findings. Recommendation Routine screening mammogram in 1 year (for women over age 40). This mammogram was interpreted with the aid of an FDA-approved computer-aided dectection system. A. Negative x-ray reports should not delay biopsy if a dominant or clinically suspicious mass is present. B. Four to eight percent of cancers are not identified by mammography. C. Adenosis and dense breast may obscure an underlying neoplasm. Electronically Signed By: Ramón Figueroa MD 10/15/18 0924
== END ==
LOC: M WHC 06:33
PROVIDERS: ATTEND Nurse Practitioner Women's Health
DX: Z12.31 Encounter for screening mammogram for malignant neoplasm of breast (principal)

== ENCOUNTER → 2018-12-13 | Outpatient (CLI) | payer BC, OTHER ==
[~2018-12-13] MED LIST changes: +VITA500T17 PO; -VITA500T53 PO
--- NOTE | 2019-01-01 01:40 | ECWPNPC ---
PATIENT NAME: ALEJANDRINA VÁZQUEZ : 1965 GENDER: FEMALE VISIT DATE: 12/13/2018 DISCHARGE DATE: 12/13/1859 VISIT LOCKED DATE TIME: PHYSICIAN: LAURA KILLIAN RESOURCE: LAURA KILLIAN REASON FOR APPOINTMENT 1. LOW BACK HISTORY OF PRESENT ILLNESS HISTORY OF PRESENT ILLNESS: HERE FOR F/U OF CHRONIC LOW BACK PAIN.WITH RIGHT POSTERIOR LEG PAIN.RATING PAIN VAS 3-6/10.DESCRIBES ACHINESS OVER RIGHT HIP.PAIN IS CONTINUOUS AND AWAKENS HER FROM SLEEP.DISCUSSED MEDICATION AND TREATMENT OPTIONS.STATES SHE IS HAVING AN INCREASE IN MUSCLE SPASM TYPE PAIN IN LOW BACK R>L. PAIN THE PATIENT DESCRIBES THE PAIN... FALL RISK SCREENING: SCREENING :NO FALLS REPORTED IN THE LAST YEAR CURRENT MEDICATIONS TAKING GABAPENTIN 300 MG CAPSULE 1 CAPSULE ORALLY FOUR TIMES DAILY FOR PAIN MDD4 TAKING METROGEL 1 % GEL 1 APPLICATION TO AFFECTED AREA EXTERNALLY FACE ONCE A DAY PRN TAKING VITAMIN D 2000 UNIT TABLET 1 CAPSULE ORALLY ONCE A DAY TAKING EPIPEN 1 MG/ML DEVICE DIRECTED INTRAMUSCULAR NEEDED TAKING MULTIVITAL [place] - TABLET 2 CAP ORALLY ONCE DAILY TAKING CALCIUM CITRATE 250 MG TABLET 4 TABLETS ORALLY 2 TABS AT LUNCH AND 2 TABS AT DINNER TAKING TYLENOL 8 HOUR 650 MG TABLET EXTENDED RELEASE 2 TABLETS NEEDED ORALLY EVERY 8 HRS TAKING LEVOTHYROXINE SODIUM 50 MCG TABLET 1 TABLET ON AN EMPTY STOMACH IN THE MORNING ORALLY ONCE A DAY TAKING VITAMIN B12 500 MCG TABLET ORALLY ONCE A DAY TAKING FOLIC ACID 800 MCG TABLET PART OF MULTI ORALLY ONCE A DAY TAKING BIOTIN 32278 MCG TABLET DISINTEGRATING WITH KERATIN 1 TABLET ORALLY DAILY TAKING CLARITIN 10 MG TABLET 1 TABLET ORALLY ONCE A DAY TAKING TRAMADOL HCL 50 MG TABLET 1 TABLET NEEDED ORALLY EVERY 6 HRS PRN FOR PAIN MDD2 TAKING EUCRISA 2 % OINTMENT 1 APPLICATION TO AFFECTED AREA EXTERNALLY TWICE A DAY TAKING TIZANIDINE HCL 4 MG TABLET 1 TABLET NEEDED ORALLY BEFORE BEDTIME MAY REPEAT IN 4 HRS TAKING DESONIDE 0.05 % CREAM 1 APPLICATION TO AFFECTED AREA EXTERNALLY TWICE A DAY TO SCALP AND FACE PINK FLAKY RASH TAKING ATARAX 25 MG TABLET DIRECTED PRN ITCH ORAL QHS TAKE 1 PRN ITCH EVERY OTHER DAY TAKING CICLOPIROX 0.77 % GEL 1 APPLICATION TO AFFECTED AREA EXTERNALLY NEEDED TO AFFECTED AREA TAKING PROTOPIC 0.03 % OINTMENT 1 APPLICATION TO AFFECTED AREA EXTERNALLY FINGERS ARMS TWICE A DAY PRN TAKING CLOBETASOL PROPIONATE 0.05 % CREAM 1 APPLICATION TO AFFECTED AREA EXTERNALLY FINGERS ARMS TWICE A DAY NEEDED FOR FLARE-UPS NOT-TAKING DIFLUCAN 200 MG TABLET 1 TABLET ORALLY WEEKLY BY MOUTH NOT-TAKING HYDROCODONE-ACETAMINOPHEN 5-325 MG TABLET 1 TABLET NEEDED ORALLY FOR PAIN Q4H PRN MDD4 MEDICATION LIST REVIEWED AND RECONCILED WITH THE PATIENT PAST MEDICAL HISTORY ASTHMA (INACTIVE SINCE CHILDHOOD) ATOPIC DERMATITIS BACK PAIN ALLERGIC RHINITIS, CAUSE UNSPECIFIED OBESITY, UNSPECIFIED UNSPECIFIED SINUSITIS (CHRONIC) UNSPECIFIED VITAMIN D 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 ALLERGY HEART MURMUR DIET CONTROLLED DIABETES TYPE 2 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 ALLERGIES CODEINE PHOSPHATE (FOR ALLERGIES USE ONLY): HIVES - ALLERGY ALMONDS, PECANS, BRAZIL NUTS: ANAPHYLAXIS - ALLERGY PEACHES AND PARESH CHERRIES: ANGIOEDEMA - ALLERGY BEE STINGS: SWELLING AT STING SITE - ALLERGY WOOL: HIVES - ALLERGY LATEX (FOR ALLERGY USE ONLY): RASH - ALLERGY SURGICAL HISTORY GASTRIC BYPASS 05/2015 LAMINECTOMY L5/S1 05/2014 HYSTERETOMY 08/1997 OOPHORECTOMY RIGHT 02/1997 BREAST REDUCTION 08/2000 DORSAL COLUMN STIMULATOR 07/02/2017 FAMILY HISTORY FATHER: 68 YRS, COPD, DIAGNOSED WITH OTHER MOTHER: ALIVE, TESTED (+) FOT TB DUE TO EXPOSURE, DOESN'T HAVE MATERNAL GRAND MOTHER: DIABETES TYPE I, DIABETES 1 SON(S) , 2 DAUGHTER(S) - HEALTHY. DENIES FAMILY HISTORY OF SKIN CANCER. SOCIAL HISTORY GENERAL: TOBACCO USE ARE YOU A:NONSMOKER LATEX QUESTIONNAIRE LATEX ALLERGY : HAVE YOU EVER DEVELOPED ANY TYPE OF REACTION AFTER HANDLING LATEX PRODUCTS SUCH RUBBER GLOVES, CONDOMS, DIAPHRAGMS, BALLOONS, SOCKS, OR UNDERWEAR?YES - PLEASE INDICATE :RUBBER GLOVES LATEX ALLERGY : HAVE YOU EVER DEVELOPED ANY TYPE OF REACTION DURING OR AFTER DENTAL APPOINTMENT, VAGINAL/RECTAL EXAMINATION, SURGICAL PROCEDURE, OR ANY OTHER EXPOSURE?NO LATEX RISK : HAVE YOU EVER HAD ANY DIFFICULTY BREATHING OR HIVES AFTER EATING OR HANDLING ANY FRUITS, OR VEGETABLES; SUCH KIWI, BANANAS, STONE FRUITS, OR CHESTNUTSNO LATEX RISK : DO YOU HAVE A PREVIOUS PERSONAL HISTORY OF MORE THAN NINE SURGERIES, SPINA BIFIDA, OR REPEATED CATHERTIZATIONS? NO LATEX RISK : ARE YOU FREQUENTLY EXPOSED TO LATEX PRODUCTS IN YOUR OCCUPATION?NO DATE ASKED : 12/13/2018 LUNG CANCER SCREENING SMOKING STATUS:NON SMOKER ALCOHOL SCREENING DID YOU HAVE A DRINK CONTAINING ALCOHOL IN THE PAST YEAR?YES HOW OFTEN DID YOU HAVE A DRINK CONTAINING ALCOHOL IN THE PAST YEAR?MONTHLY OR LESS (1 POINT) HOW MANY DRINKS DID YOU HAVE ON A TYPICAL DAY WHEN YOU WERE DRINKING IN THE PAST YEAR?1 OR 2 (0 POINTS) POINTS1 INTERPRETATIONNEGATIVE RECREATIONAL DRUG USE DRUG USE?NO CAFFEINE CAFFEINE USE?YES HOW OFTEN AND HOW MUCH? 1-2 CUPS COFFEE/DAY BUDDHIST [id number] NONE LANGUAGE LANGUAGES SPOKEN:ALBANIAN EDUCATION LEVEL OF EDUCATION:NOT FINISHED COLLEGE LEARNING BARRIERS / SPECIAL NEEDS CHANGE FROM LAST VISIT?NO BARRIERS TO LEARNING?NO HEARING IMPAIRED?NO VISION IMPAIRED?YES :CORRECTIVE LENSES COGNITIVELY IMPAIRED?NO READINESS TO LEARN?YES LEARNING PREFERENCES?YES :BOOKLETS, HANDOUTS LEARNING CAPABILITIES PRESENT?YES EMOTIONAL BARRIERS?NO SPECIAL DEVICES?NO SWIMMING POOL SERVICER NEEDED?NO DOMESTIC VIOLENCE DO YOU FEEL SAFE IN YOUR ENVIRONMENT?YES DIET: REGULAR. EXERCISE: NO REGULAR EXERCISE. PAIN CLINIC PFS, CLERGY, PUBLIC HEALTH REFERRALS PFS REFERRAL NEEDED?NO CLERGY REFERRAL NEEDED?NO PUBLIC HEALTH REFERRAL NEEDED?NO WAS THE PROVIDER NOTIFIED OF ANY PERTINENT INFO?YES N/A HAS THE PATIENT BEEN EDUCATED REGARDING HIS/HER PLAN OF CARE?YES HAS THE PATIENT BEEN EDUCATED REGARDING PAIN, THE RISK FOR PAIN, THE IMPORTANCE OF EFFECTIVE PAIN MANAGEMENT, AND THE PAIN ASSESSMENT PROCESS?YES ADVANCE DIRECTIVE ADVANCE DIRECTIVE DISCUSSED WITH PATIENT:YES PT. DOES NOT HAVE ANY ADVANCED DIRECTIVES AND SHE DECLINES INFORMATION ON HCP AT THIS TIME. REVIEWED WITH PT 07/02/18 1124 10/10/18 REVIEWED WITH PT. AD. HOSPITALIZATION/MAJOR DIAGNOSTIC PROCEDURE HOSPITALIZATIONS RELATED TO SURGERY AND CHILDBIRTH REVIEW OF SYSTEMS REVIEWED BY: PROVIDER: LAURA FREEMAN . CONSTITUTIONAL: ANY CHANGE IN YOUR MEDICAL CONDITION? NO . CHILLS NO . FEVER NO . INFECTION: DO YOU HAVE NEW INFECTIONS? NO . DO YOU HAVE HISTORY OF MRSA? NO . MUSCULOSKELETAL: ANY NEW PATTERNS OF PAIN OR NUMBNESS? YES . GASTROENTEROLOGY: ANY NEW CHANGE IN BOWEL CONTROL? NO . GENITOURINARY: ANY NEW CHANGE IN BLADDER CONTROL? NO . IS THERE A CHANCE YOU COULD BE ? NO . HEMATOLOGY/LYMPH: DO YOU TAKE ANY BLOOD THINNERS? (FOR EXAMPLE- COUMADIN, PLAVIX, AGGRENOX, PLATEL, PRADAXA, OR XARELTO) NO . WHEN WAS YOUR LAST DOSE? DATE: TIME: . NEUROLOGY: HAVE YOU FALLEN IN THE PAST 12 MONTHS? NO . ANY NEW EXTREMITY NUMBNESS OR WEAKNESS? YES . CARDIOLOGY: DO YOU HAVE A PACEMAKER OR DEFIBRILLATOR? YES, DCS . RESPIRATORY: HAVE YOU BEEN SICK IN THE PAST WEEK? NO . FEVER NO . FLU LIKE SYMPTOMS? NO . COUGH NO . INTEGUMENTARY: DO YOU HAVE ANY RASHES OR OPEN SORES? NO . ALLERGIC/IMMUNO: ARE YOU ALLERGIC TO IV DYE? NO . ANY NEW ALLERGIES? NO . PSYCHIATRIC: DO YOU HAVE THOUGHTS OF HURTING YOURSELF OR SOMEONE ELSE? NO . ARE YOU ABUSED, NEGLECTED, OR IN AN UNSAFE ENVIRONMENT? NO . ENDOCRINOLOGY: ARE YOU DIABETIC? YES . OTHER: DO YOU NEED ANY PRESCRIPTIONS? YES, TIZANIDINE, GABAPENTIN . IF YES, PLEASE LIST: ____ . ANY NEW PROBLEMS WITH YOUR MEDICATIONS? NO . WHEN DID YOU LAST EAT? ____ . WHEN DID YOU LAST DRINK? ____ . WHAT DID YOU LAST DRINK? ____ . NAME OF PERSON DRIVING YOU HOME? ____ . DO YOU HAVE ANY OTHER QUESTIONS OR CONCERNS YES, PT STATES THAT SHE IS HAVING DIFFICULTY CHARGING INTERNAL BATTERY, EXTREME ACHE WHILE CHARGING, EXTREME MUSCLE CRAMPING - DALY HORSES IN BOTH LEGS AT TIMES . VITAL SIGNS WT 128 LBS, HT 64 IN, BMI 21.97 INDEX, BP 122/68 MM HG, HR 76 /MIN, RR 16 /MIN, TEMP 98.0 F, OXYGEN SAT % 98%, SAFE IN ENV? (Y/N) Y, NA INITIALS MS 09:03, REVIEWED BY: LANCE. EXAMINATION GENERAL EXAMINATION: LUNGS: LUNG SOUNDS ARE CLEAR . HEART: HEART RATE REGULAR . MUSCULOSKELETAL:*, MUSCLE STRENGTH TESTING 5/5 BILATERAL LOWER EXTREMITIES., ,PALPATION: POSITIVE FOR PAIN OVER L/S SPINE. POSITIVE FOR PAIN OVER L/S PARSPINALS.SPECIFIC POINT TENDERNESS OVER BILAT L4/5-L5/S1 LUMBR FACETS WITH FACET LOADING . DIAGNOSTIC:MRI L/S SPINE -11/21/16. 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 PROCEDURE CODES FA211 ESTABILISHED PATIENT [facility] CHARGE DISPOSITION & COMMUNICATION FOLLOW UP POST (REASON: BILAT L4/5-L5/S1 TFB) ELECTRONICALLY SIGNED BY LAURA FREEMAN, LYDIA ON 12/30/2018 AT 09:05 AM EDT DISCLAIMER : THIS IS A VISIT SUMMARY EXTRACTED FROM THE [employer] CHART. IT IS NOT A COPY OF THE [employer] PROGRESS NOTE. VIV
== END ==
LOC: M PAIN 08:30
PROVIDERS: ATTEND Nurse Practitioner Family
DX: M47.27 Other spondylosis with radiculopathy, lumbosacral region (principal); G89.29 Other chronic pain; E55.9 Vitamin D deficiency, unspecified; E11.9 Type 2 diabetes mellitus without complications; Z98.84 Bariatric surgery status; Z88.5 Allergy status to narcotic agent; Z91.010 Allergy to peanuts; Z91.018 Allergy to other foods; Z91.030 Bee allergy status; Z91.040 Latex allergy status; Z91.048 Other nonmedicinal substance allergy status; Z79.899 Other long term (current) drug therapy

== ENCOUNTER → 2019-02-26 | Outpatient (CLI) | payer BC, OTHER ==
[~2019-02-26] MED LIST changes: +BUPIVACAINE HCL 0.25% 30 ML VIAL As Ordered ONE; +ISOVUE-M 300 61% 15ML VIAL (Q9967) As Ordered ONE; +LIDOCAINE 1% SDV INJ 30 ML VIAL As Ordered ONE; +TRIAMCINOLONE ACETONIDE SUSP 40 MG/ML VIAL (J3301) As Ordered ONE; +diazePAM 5 MG TAB As Ordered ONE; +oxyCODONE 5MG TAB As Ordered ONE
--- NOTE | 2019-02-26 15:35 | REP ---
C-ARM VIEWS LUMBAR SPINE: Two C-Arm views lumbar spine performed during injection by Dr. Raygoza, with bilateral facet block performed. [place] are seen along the lower lumbar facets. 32.5 seconds of fluoroscopy time was utilized. Electronically Signed by Jesus Kimball MD 02/26/2019 04:37 P
--- NOTE | 2019-03-07 00:44 | ECWPNPC ---
PATIENT NAME: ALEJANDRINA VÁZQUEZ : 1965 GENDER: FEMALE VISIT DATE: 02/26/2019 DISCHARGE DATE: 02/26/19 1250 VISIT LOCKED DATE TIME: PHYSICIAN: BERHANE BURDICK MD RESOURCE: BERHANE BURDICK MD REASON FOR APPOINTMENT 1. BILAT L4/5-L5/S1 TFB HISTORY OF PRESENT ILLNESS HISTORY OF PRESENT ILLNESS: PAIN THE PATIENT DESCRIBES THE PAIN... FALL RISK SCREENING: SCREENING :NO FALLS REPORTED IN THE LAST YEAR CURRENT MEDICATIONS TAKING METROGEL 1 % GEL 1 APPLICATION TO AFFECTED AREA EXTERNALLY FACE ONCE A DAY PRN, NOTES: MONTHS AGO TAKING VITAMIN D 2000 UNIT TABLET 1 CAPSULE ORALLY ONCE A DAY, NOTES: 429 TAKING EPIPEN 1 MG/ML DEVICE DIRECTED INTRAMUSCULAR NEEDED, NOTES: NONE RECENT TAKING MULTIVITAL [place] - TABLET 2 CAP ORALLY ONCE DAILY, NOTES: 429 TAKING CALCIUM CITRATE 250 MG TABLET 4 TABLETS ORALLY 2 TABS AT LUNCH AND 2 TABS AT DINNER, NOTES: 02/25/19 1200 TAKING TYLENOL 8 HOUR 650 MG TABLET EXTENDED RELEASE 2 TABLETS NEEDED ORALLY EVERY 8 HRS, NOTES: MONTH AGO TAKING LEVOTHYROXINE SODIUM 50 MCG TABLET 1 TABLET ON AN EMPTY STOMACH IN THE MORNING ORALLY ONCE A DAY, NOTES: 429 TAKING VITAMIN B12 500 MCG TABLET ORALLY ONCE A DAY, NOTES: 429 TAKING FOLIC ACID 800 MCG TABLET PART OF MULTI ORALLY ONCE A DAY, NOTES: 429 TAKING CLARITIN 10 MG TABLET 1 TABLET ORALLY ONCE A DAY, NOTES: MONTHS AGO TAKING TRAMADOL HCL 50 MG TABLET 1 TABLET NEEDED ORALLY EVERY 6 HRS PRN FOR PAIN MDD2, NOTES: NONE RECENT TAKING EUCRISA 2 % OINTMENT 1 APPLICATION TO AFFECTED AREA EXTERNALLY TWICE A DAY, NOTES: NONE RECENT TAKING DESONIDE 0.05 % CREAM 1 APPLICATION TO AFFECTED AREA EXTERNALLY TWICE A DAY TO SCALP AND FACE PINK FLAKY RASH, NOTES: NONE RECENT TAKING ATARAX 25 MG TABLET DIRECTED PRN ITCH ORAL QHS TAKE 1 PRN ITCH EVERY OTHER DAY, NOTES: NONE RECENT TAKING CICLOPIROX 0.77 % GEL 1 APPLICATION TO AFFECTED AREA EXTERNALLY NEEDED TO AFFECTED AREA, NOTES: NONE RECENT TAKING CLOBETASOL PROPIONATE 0.05 % CREAM 1 APPLICATION TO AFFECTED AREA EXTERNALLY FINGERS ARMS TWICE A DAY NEEDED FOR FLARE-UPS, NOTES: NONE RECENT TAKING ROBAXIN-750 750 MG TABLET 1 TABLET ORALLY BID, NOTES: 02/25/192199 TAKING PROTOPIC 0.03 % OINTMENT 1 APPLICATION TO AFFECTED AREA EXTERNALLY FINGERS ARMS TWICE A DAY PRN, NOTES: NONE RECENT TAKING GABAPENTIN 300 MG CAPSULE 1 CAPSULE ORALLY FOUR TIMES DAILY FOR PAIN MDD4, NOTES: 02/25/192199 NOT-TAKING BIOTIN 70188 MCG TABLET DISINTEGRATING WITH KERATIN 1 TABLET ORALLY DAILY NOT-TAKING DIFLUCAN 200 MG TABLET 1 TABLET ORALLY WEEKLY BY MOUTH NOT-TAKING HYDROCODONE-ACETAMINOPHEN 5-325 MG TABLET 1 TABLET NEEDED ORALLY FOR PAIN Q4H PRN MDD4 MEDICATION LIST REVIEWED AND RECONCILED WITH THE PATIENT PAST MEDICAL HISTORY ASTHMA (INACTIVE SINCE CHILDHOOD) ATOPIC DERMATITIS BACK PAIN ALLERGIC RHINITIS, CAUSE UNSPECIFIED OBESITY, UNSPECIFIED UNSPECIFIED SINUSITIS (CHRONIC) UNSPECIFIED VITAMIN D 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 ALLERGY HEART MURMUR DIET CONTROLLED DIABETES TYPE 2 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 ALLERGIES CODEINE PHOSPHATE (FOR ALLERGIES USE ONLY): HIVES - ALLERGY ALMONDS, PECANS, BRAZIL NUTS: ANAPHYLAXIS - ALLERGY PEACHES AND PARESH CHERRIES: ANGIOEDEMA - ALLERGY BEE STINGS: SWELLING AT STING SITE - ALLERGY WOOL: HIVES - ALLERGY LATEX (FOR ALLERGY USE ONLY): RASH - ALLERGY SURGICAL HISTORY GASTRIC BYPASS 05/2015 LAMINECTOMY L5/S1 05/2014 HYSTERETOMY 08/1997 OOPHORECTOMY RIGHT 02/1997 BREAST REDUCTION 08/2000 DORSAL COLUMN STIMULATOR 07/02/2017 FAMILY HISTORY FATHER: 68 YRS, COPD, DIAGNOSED WITH OTHER MOTHER: ALIVE, TESTED (+) FOT TB DUE TO EXPOSURE, DOESN'T HAVE MATERNAL GRAND MOTHER: DIABETES TYPE I, DIABETES 1 SON(S) , 2 DAUGHTER(S) - HEALTHY. DENIES FAMILY HISTORY OF SKIN CANCER. SOCIAL HISTORY GENERAL: TOBACCO USE ARE YOU A:NONSMOKER EDUCATION LEVEL OF EDUCATION:NOT FINISHED COLLEGE DIET: REGULAR. LANGUAGE LANGUAGES SPOKEN:KENYAN DOMESTIC VIOLENCE DO YOU FEEL SAFE IN YOUR ENVIRONMENT?YES RECREATIONAL DRUG USE DRUG USE?NO EXERCISE: NO REGULAR EXERCISE. LEARNING BARRIERS / SPECIAL NEEDS CHANGE FROM LAST VISIT?NO BARRIERS TO LEARNING?NO HEARING IMPAIRED?NO VISION IMPAIRED?YES :CORRECTIVE LENSES COGNITIVELY IMPAIRED?NO READINESS TO LEARN?YES LEARNING PREFERENCES?YES :BOOKLETS, HANDOUTS LEARNING CAPABILITIES PRESENT?YES EMOTIONAL BARRIERS?NO SPECIAL DEVICES?NO DEMURRAGE AGENT NEEDED?NO LUNG CANCER SCREENING SMOKING STATUS:NON SMOKER PAIN CLINIC PFS, CLERGY, PUBLIC HEALTH REFERRALS PFS REFERRAL NEEDED?NO CLERGY REFERRAL NEEDED?NO PUBLIC HEALTH REFERRAL NEEDED?NO WAS THE PROVIDER NOTIFIED OF ANY PERTINENT INFO?YES N/A HAS THE PATIENT BEEN EDUCATED REGARDING HIS/HER PLAN OF CARE?YES HAS THE PATIENT BEEN EDUCATED REGARDING PAIN, THE RISK FOR PAIN, THE IMPORTANCE OF EFFECTIVE PAIN MANAGEMENT, AND THE PAIN ASSESSMENT PROCESS?YES LATEX QUESTIONNAIRE LATEX ALLERGY : HAVE YOU EVER DEVELOPED ANY TYPE OF REACTION AFTER HANDLING LATEX PRODUCTS SUCH RUBBER GLOVES, CONDOMS, DIAPHRAGMS, BALLOONS, SOCKS, OR UNDERWEAR?YES - PLEASE INDICATE :RUBBER GLOVES LATEX ALLERGY : HAVE YOU EVER DEVELOPED ANY TYPE OF REACTION DURING OR AFTER DENTAL APPOINTMENT, VAGINAL/RECTAL EXAMINATION, SURGICAL PROCEDURE, OR ANY OTHER EXPOSURE?NO LATEX RISK : HAVE YOU EVER HAD ANY DIFFICULTY BREATHING OR HIVES AFTER EATING OR HANDLING ANY FRUITS, OR VEGETABLES; SUCH KIWI, BANANAS, STONE FRUITS, OR CHESTNUTSNO LATEX RISK : DO YOU HAVE A PREVIOUS PERSONAL HISTORY OF MORE THAN NINE SURGERIES, SPINA BIFIDA, OR REPEATED CATHERTIZATIONS? NO LATEX RISK : ARE YOU FREQUENTLY EXPOSED TO LATEX PRODUCTS IN YOUR OCCUPATION?NO DATE ASKED : 12/13/2018 PATIENT WITH LATEX ALLERGY CAFFEINE CAFFEINE USE?YES HOW OFTEN AND HOW MUCH? 1-2 CUPS COFFEE/DAY ADVANCE DIRECTIVE ADVANCE DIRECTIVE DISCUSSED WITH PATIENT:YES PATIENT DOES NOT HAVE ANY ADVANCED DIRECTIVES AND SHE DECLINES INFORMATION ON HCP AT THIS TIME. EPISCOPALIAN [id number] NONE ALCOHOL SCREENING DID YOU HAVE A DRINK CONTAINING ALCOHOL IN THE PAST YEAR?YES HOW OFTEN DID YOU HAVE A DRINK CONTAINING ALCOHOL IN THE PAST YEAR?MONTHLY OR LESS (1 POINT) HOW MANY DRINKS DID YOU HAVE ON A TYPICAL DAY WHEN YOU WERE DRINKING IN THE PAST YEAR?1 OR 2 (0 POINTS) POINTS1 INTERPRETATIONNEGATIVE REVIEWED WITH PT 07/02/18 1124 BV10/10/18 REVIEWED WITH PT. ADREVIEWED WITH PATIENT 02/26/19 1117 JS. HOSPITALIZATION/MAJOR DIAGNOSTIC PROCEDURE HOSPITALIZATIONS RELATED TO SURGERY AND CHILDBIRTH REVIEW OF SYSTEMS REVIEWED BY: PROVIDER: . CONSTITUTIONAL: ANY CHANGE IN YOUR MEDICAL CONDITION? NO . CHILLS NO . FEVER NO . INFECTION: DO YOU HAVE NEW INFECTIONS? NO . DO YOU HAVE HISTORY OF MRSA? NO . MUSCULOSKELETAL: ANY NEW PATTERNS OF PAIN OR NUMBNESS? NO . GASTROENTEROLOGY: ANY NEW CHANGE IN BOWEL CONTROL? NO . GENITOURINARY: ANY NEW CHANGE IN BLADDER CONTROL? NO . IS THERE A CHANCE YOU COULD BE ? NO . HEMATOLOGY/LYMPH: DO YOU TAKE ANY BLOOD THINNERS? (FOR EXAMPLE- COUMADIN, PLAVIX, AGGRENOX, PLATEL, PRADAXA, OR XARELTO) NO . WHEN WAS YOUR LAST DOSE? DATE: TIME: . NEUROLOGY: HAVE YOU FALLEN IN THE PAST 12 MONTHS? NO . ANY NEW EXTREMITY NUMBNESS OR WEAKNESS? NO . CARDIOLOGY: DO YOU HAVE A PACEMAKER OR DEFIBRILLATOR? NO, DORSAL COLUMN STIMULATOR . RESPIRATORY: HAVE YOU BEEN SICK IN THE PAST WEEK? NO . FEVER NO . FLU LIKE SYMPTOMS? NO . COUGH NO . INTEGUMENTARY: DO YOU HAVE ANY RASHES OR OPEN SORES? NO . ALLERGIC/IMMUNO: ARE YOU ALLERGIC TO IV DYE? NO . ANY NEW ALLERGIES? NO . PSYCHIATRIC: DO YOU HAVE THOUGHTS OF HURTING YOURSELF OR SOMEONE ELSE? NO . ARE YOU ABUSED, NEGLECTED, OR IN AN UNSAFE ENVIRONMENT? NO . ENDOCRINOLOGY: ARE YOU DIABETIC? NO . OTHER: DO YOU NEED ANY PRESCRIPTIONS? YES . IF YES, PLEASE LIST: ____METHOCARBAMOL . ANY NEW PROBLEMS WITH YOUR MEDICATIONS? NO . WHEN DID YOU LAST EAT? ____02/26/19 0430 . WHEN DID YOU LAST DRINK? ____02/26/19 0530 . WHAT DID YOU LAST DRINK? ____WATER . NAME OF PERSON DRIVING YOU HOME? ____ALLISON VÁZQUEZ . DO YOU HAVE ANY OTHER QUESTIONS OR CONCERNS NO . VITAL SIGNS WT 126.4 LBS, HT 64 IN, BMI 21.69 INDEX, BP 116/58 MM HG, HR 61 /MIN, RR 16 /MIN, TEMP 97.5 F, OXYGEN SAT % 98%, SAFE IN ENV? (Y/N) YES, NA INITIALS MP 1038, REVIEWED BY: JS. ASSESSMENTS SPONDYLOSIS OF LUMBAR REGION WITHOUT MYELOPATHY OR RADICULOPATHY - M47.816 (PRIMARY) SPONDYLOSIS OF LUMBOSACRAL REGION WITHOUT MYELOPATHY OR RADICULOPATHY - M47.817 PROCEDURES PN LUMBAR FACET BLOCK THERAPEUTIC PRE PROCEDURE DIAGNOSIS LUMBAR SPONDYLOSIS, LUMBOSACRAL SPONDYLOSIS POST PROCEDURE DIAGNOSIS LUMBAR SPONDYLOSIS, LUMBOSACRAL SPONDYLOSIS PROCEDURE BILATERAL L4-L5 AND BILATERAL L5-S1 LUMBAR FACET THERAPEUTIC BLOCK SURGEON DR. BERHANE BURDICK LEAK DETECTION ENGINEER NONE ANESTHESIA LOCAL PRE PROCEDURE NOTE THE PATIENT HAS A HISTORY OF CHRONIC LOW BACK PAIN. I EVALUATE THE PATIENT AND REVIEWED THE CHART. I WENT OVER THE RISKS, ALTERNATIVES, AND BENEFITS ASSOCIATED WITH THIS PROCEDURE. THE PATIENT WOULD LIKE TO PROCEED AND GIVE CONSENT TO PERFORMED THE PROCEDURE. THE PATIENT DENIES UNEXPLAINABLE WEIGHT LOSS, FEVER, CHILLS, OR NEW CHANGES IN URINARY OR BOWEL CONTROL DESCRIPTION OF PROCEDURE THE PATIENT WAS BROUGHT TO THE PROCEDURE ROOM AND PLACED IN THE PRONE POSITION. THE LUMBOSACRAL AREA WAS CLEANED WITH CHLORAPREP SOLUTION AND DRAPED ASEPTICALLY. THE PROCEDURE WAS DONE UNDER STERILE CONDITIONS. I CHECKED LATERALITY AND THE LEVEL WHERE THE PROCEDURE WAS GOING TO BE PERFORMED WITH THE PATIENT AND THE SUPPORTING STAFF AT THE MOMENT OF THE TIME OUT IN THE PROCEDURE ROOM. UNDER FLUOROSCOPIC GUIDANCE, THE TARGET POINT WAS SELECTED AT THE RIGHT AND LEFT L4-L5 AND RIGHT AND LEFT L5-S1 FACET JOINT. TARGET POINT WAS SELECTED AFTER LATERAL ROTATION AND TILT OF THE MAGNIFIER OF THE C-ARM. LIDOCAINE 0.5% WAS USED TO NUMB THE SKIN AND THE SUBCUTANEOUS TISSUE BELOW IT. SPINAL NEEDLES, 22-GAUGE, WERE ADVANCED UNDER FLUOROSCOPIC GUIDANCE AND FOLLOWING PATIENT FEEDBACK UNTIL THE TARGETS WERE TOUCHED. THE POSITION OF THE NEEDLES WAS VERIFIED WITH AP AND LATERAL VIEWS. AFTER PROPER POSITION OF THE NEEDLES WAS ACHIEVED, ISOVUE-M DYE 30% 0.1 ML WAS INJECTED SHOWING ADEQUATE SPREAD OF THE DYE. THEN A SOLUTION OF 1.9 ML OF BUPIVACAINE 0.125% OF KENALOG 10 MG WAS INJECTED AT EACH SITE. THERE WAS NO EVIDENCE OF BLOOD, PARESTHESIA OR CEREBROSPINAL FLUID DURING THE PROCEDURE. THE PATIENT WAS SENT TO THE RECOVERY ROOM. THE PATIENT WAS MOVING THE EXTREMITIES AND DOING WELL. THERE WAS NO COMPLICATION DURING THE PROCEDURE. FLUOROSCOPY TIME WAS 32 SECONDS POST PROCEDURE NOTE THE PATIENT WILL BE SEEN IN A FOLLOW UP IN THE NEXT FEW WEEKS. INSTRUCTIONS WERE GIVEN, QUESTIONS WERE ANSWERED, AND THE PATIENT EXPRESSED UNDERSTANDING AND AGREES WITH THE PLAN. I, PRATIBHA CHRISTENSEN, DOCUMENTED THE ABOVE INFORMATION ACTING A SCRIBE FOR DR. BURDICK. I HAVE REVIEWED THE ABOVE DOCUMENT, WRITTEN BY PRATIBHA MITCHELLIBAltagracia AND I VERIFY THAT IT IS ACCURATE. DIAGNOSTIC IMAGING [facility] FACET BLOCK (PAIN)[id number] PROCEDURE CODES 6045F RADXPS IN END [id number] PXD [id number] INJ PARAVERT F JNT L/S 1 LEV, MODIFIERS: 50 [id number] INJ PARAVERT F JNT L/S 2 LEV, MODIFIERS: 50 DISPOSITION & COMMUNICATION FOLLOW UP 3 WEEKS ELECTRONICALLY SIGNED BY BERHANE BURDICK MD, MD ON 03/06/2019 AT 01:53 PM EDT DISCLAIMER : THIS IS A VISIT SUMMARY EXTRACTED FROM THE [employer] CHART. IT IS NOT A COPY OF THE [employer] PROGRESS NOTE. VIV
== END ==
LOC: M PAIN 10:45
PROVIDERS: ATTEND Anesthesiology
DX: M47.816 Spondylosis without myelopathy or radiculopathy, lumbar region (principal); M47.817 Spondylosis without myelopathy or radiculopathy, lumbosacral region; J30.9 Allergic rhinitis, unspecified; E66.9 Obesity, unspecified; J32.9 Chronic sinusitis, unspecified; E55.9 Vitamin D deficiency, unspecified; M51.16 Intervertebral disc disorders with radiculopathy, lumbar region; R01.1 Cardiac murmur, unspecified; E11.9 Type 2 diabetes mellitus without complications; Z98.84 Bariatric surgery status; Z88.5 Allergy status to narcotic agent; Z91.040 Latex allergy status; Z91.030 Bee allergy status; Z91.048 Other nonmedicinal substance allergy status; Z91.018 Allergy to other foods
CPT/HCPCS: 64493; 64494; J3301; Q9967

== ENCOUNTER → 2019-03-17 | Outpatient (CLI) | payer BC, OTHER ==
[~2019-03-17] MED LIST changes: -BUPIVACAINE HCL 0.25% 30 ML VIAL As Ordered ONE; -ISOVUE-M 300 61% 15ML VIAL (Q9967) As Ordered ONE; -LIDOCAINE 1% SDV INJ 30 ML VIAL As Ordered ONE; -TRIAMCINOLONE ACETONIDE SUSP 40 MG/ML VIAL (J3301) As Ordered ONE; -diazePAM 5 MG TAB As Ordered ONE; -oxyCODONE 5MG TAB As Ordered ONE
--- NOTE | 2019-03-28 23:39 | ECWPNPC ---
PATIENT NAME: ALEJANDRINA VÁZQUEZ : 1965 GENDER: FEMALE VISIT DATE: 03/17/2019 DISCHARGE DATE: 03/17/19 1349 VISIT LOCKED DATE TIME: PHYSICIAN: LAURA KILLIAN RESOURCE: LAURA KILLIAN REASON FOR APPOINTMENT 1. POST BILAT L4/5-L5/S1 TFBOST HISTORY OF PRESENT ILLNESS HISTORY OF PRESENT ILLNESS: HERE FOR F/U OF CHRONIC LBP WITH RIGHT LEG PAIN.HAD BILAT. L4/5-L5/S1 ON 02/26/19.OVERALL DOING WELL POST PROCEDURE.REPORTING LESS INTENSE PAIN.COMPLAINING OF CONSTANT ACHING PAIN ACROSS LOW BACK ECSPECIALLY WITH CHARGING BATTERY.RATING PAIN VAS 2/10.DISCUSSED MEDICATION AND TREATMENT OPTIONS.HAS DCS IN PLACE WHICH IS HELPFUL. PAIN THE PATIENT DESCRIBES THE PAIN... FALL RISK SCREENING: SCREENING :NO FALLS REPORTED IN THE LAST YEAR CURRENT MEDICATIONS TAKING METROGEL 1 % GEL 1 APPLICATION TO AFFECTED AREA EXTERNALLY FACE ONCE A DAY PRN TAKING VITAMIN D 2000 UNIT TABLET 1 CAPSULE ORALLY ONCE A DAY TAKING EPIPEN 1 MG/ML DEVICE DIRECTED INTRAMUSCULAR NEEDED TAKING MULTIVITAL [place] - TABLET 2 CAP ORALLY ONCE DAILY TAKING CALCIUM CITRATE 250 MG TABLET 4 TABLETS ORALLY 2 TABS AT LUNCH AND 2 TABS AT DINNER TAKING TYLENOL 8 HOUR 650 MG TABLET EXTENDED RELEASE 2 TABLETS NEEDED ORALLY EVERY 8 HRS TAKING LEVOTHYROXINE SODIUM 50 MCG TABLET 1 TABLET ON AN EMPTY STOMACH IN THE MORNING ORALLY ONCE A DAY TAKING VITAMIN B12 500 MCG TABLET ORALLY ONCE A DAY TAKING FOLIC ACID 800 MCG TABLET PART OF MULTI ORALLY ONCE A DAY TAKING CLARITIN 10 MG TABLET 1 TABLET ORALLY ONCE A DAY TAKING TRAMADOL HCL 50 MG TABLET 1 TABLET NEEDED ORALLY EVERY 6 HRS PRN FOR PAIN MDD2 TAKING EUCRISA 2 % OINTMENT 1 APPLICATION TO AFFECTED AREA EXTERNALLY TWICE A DAY TAKING DESONIDE 0.05 % CREAM 1 APPLICATION TO AFFECTED AREA EXTERNALLY TWICE A DAY TO SCALP AND FACE PINK FLAKY RASH TAKING ATARAX 25 MG TABLET DIRECTED PRN ITCH ORAL QHS TAKE 1 PRN ITCH EVERY OTHER DAY TAKING CICLOPIROX 0.77 % GEL 1 APPLICATION TO AFFECTED AREA EXTERNALLY NEEDED TO AFFECTED AREA TAKING CLOBETASOL PROPIONATE 0.05 % CREAM 1 APPLICATION TO AFFECTED AREA EXTERNALLY FINGERS ARMS TWICE A DAY NEEDED FOR FLARE-UPS TAKING PROTOPIC 0.03 % OINTMENT 1 APPLICATION TO AFFECTED AREA EXTERNALLY FINGERS ARMS TWICE A DAY PRN TAKING GABAPENTIN 300 MG CAPSULE 1 CAPSULE ORALLY FOUR TIMES DAILY FOR PAIN MDD4 TAKING ROBAXIN-750 750 MG TABLET 1 TABLET ORALLY BID NOT-TAKING BIOTIN 39691 MCG TABLET DISINTEGRATING WITH KERATIN 1 TABLET ORALLY DAILY NOT-TAKING DIFLUCAN 200 MG TABLET 1 TABLET ORALLY WEEKLY BY MOUTH NOT-TAKING HYDROCODONE-ACETAMINOPHEN 5-325 MG TABLET 1 TABLET NEEDED ORALLY FOR PAIN Q4H PRN MDD4 MEDICATION LIST REVIEWED AND RECONCILED WITH THE PATIENT PAST MEDICAL HISTORY ASTHMA (INACTIVE SINCE CHILDHOOD) ATOPIC DERMATITIS BACK PAIN ALLERGIC RHINITIS, CAUSE UNSPECIFIED OBESITY, UNSPECIFIED UNSPECIFIED SINUSITIS (CHRONIC) UNSPECIFIED VITAMIN D 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 ALLERGY HEART MURMUR DIET CONTROLLED DIABETES TYPE 2 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 ALLERGIES CODEINE PHOSPHATE (FOR ALLERGIES USE ONLY): HIVES - ALLERGY ALMONDS, PECANS, BRAZIL NUTS: ANAPHYLAXIS - ALLERGY PEACHES AND PARESH CHERRIES: ANGIOEDEMA - ALLERGY BEE STINGS: SWELLING AT STING SITE - ALLERGY WOOL: HIVES - ALLERGY LATEX (FOR ALLERGY USE ONLY): RASH - ALLERGY SURGICAL HISTORY GASTRIC BYPASS 05/2015 LAMINECTOMY L5/S1 05/2014 HYSTERETOMY 08/1997 OOPHORECTOMY RIGHT 02/1997 BREAST REDUCTION 08/2000 DORSAL COLUMN STIMULATOR 07/02/2017 FAMILY HISTORY FATHER: 68 YRS, COPD, DIAGNOSED WITH OTHER MOTHER: ALIVE, TESTED (+) FOT TB DUE TO EXPOSURE, DOESN'T HAVE MATERNAL GRAND MOTHER: DIABETES TYPE I, DIABETES 1 SON(S) , 2 DAUGHTER(S) - HEALTHY. DENIES FAMILY HISTORY OF SKIN CANCER. SOCIAL HISTORY GENERAL: TOBACCO USE ARE YOU A:NONSMOKER EDUCATION LEVEL OF EDUCATION:NOT FINISHED COLLEGE DIET: REGULAR. LANGUAGE LANGUAGES SPOKEN:DJIBOUTIAN DOMESTIC VIOLENCE DO YOU FEEL SAFE IN YOUR ENVIRONMENT?YES RECREATIONAL DRUG USE DRUG USE?NO EXERCISE: NO REGULAR EXERCISE. 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 NEEDED?NO LUNG CANCER SCREENING SMOKING STATUS:NON SMOKER PAIN CLINIC PFS, CLERGY, PUBLIC HEALTH REFERRALS PFS REFERRAL NEEDED?NO CLERGY REFERRAL NEEDED?NO PUBLIC HEALTH REFERRAL NEEDED?NO WAS THE PROVIDER NOTIFIED OF ANY PERTINENT INFO?YES N/A HAS THE PATIENT BEEN EDUCATED REGARDING HIS/HER PLAN OF CARE?YES HAS THE PATIENT BEEN EDUCATED REGARDING PAIN, THE RISK FOR PAIN, THE IMPORTANCE OF EFFECTIVE PAIN MANAGEMENT, AND THE PAIN ASSESSMENT PROCESS?YES LATEX QUESTIONNAIRE LATEX ALLERGY : HAVE YOU EVER DEVELOPED ANY TYPE OF REACTION AFTER HANDLING LATEX PRODUCTS SUCH RUBBER GLOVES, CONDOMS, DIAPHRAGMS, BALLOONS, SOCKS, OR UNDERWEAR?YES - PLEASE INDICATE :RUBBER GLOVES LATEX ALLERGY : HAVE YOU EVER DEVELOPED ANY TYPE OF REACTION DURING OR AFTER DENTAL APPOINTMENT, VAGINAL/RECTAL EXAMINATION, SURGICAL PROCEDURE, OR ANY OTHER EXPOSURE?NO LATEX RISK : HAVE YOU EVER HAD ANY DIFFICULTY BREATHING OR HIVES AFTER EATING OR HANDLING ANY FRUITS, OR VEGETABLES; SUCH KIWI, BANANAS, STONE FRUITS, OR CHESTNUTSNO LATEX RISK : DO YOU HAVE A PREVIOUS PERSONAL HISTORY OF MORE THAN NINE SURGERIES, SPINA BIFIDA, OR REPEATED CATHERIZATIONS? NO LATEX RISK : ARE YOU FREQUENTLY EXPOSED TO LATEX PRODUCTS IN YOUR OCCUPATION?NO DATE ASKED : 03/17/2019 PATIENT WITH LATEX ALLERGY CAFFEINE CAFFEINE USE?YES HOW OFTEN AND HOW MUCH? 1-2 CUPS COFFEE/DAY ADVANCE DIRECTIVE ADVANCE DIRECTIVE DISCUSSED WITH PATIENT:YES PATIENT DOES NOT HAVE ANY ADVANCED DIRECTIVES AND SHE DECLINES INFORMATION ON HCP AT THIS TIME. CHRISTIAN [id number] NONE ALCOHOL SCREENING DID YOU HAVE A DRINK CONTAINING ALCOHOL IN THE PAST YEAR?YES HOW OFTEN DID YOU HAVE A DRINK CONTAINING ALCOHOL IN THE PAST YEAR?MONTHLY OR LESS (1 POINT) HOW MANY DRINKS DID YOU HAVE ON A TYPICAL DAY WHEN YOU WERE DRINKING IN THE PAST YEAR?1 OR 2 (0 POINTS) POINTS1 INTERPRETATIONNEGATIVE REVIEWED WITH PT 07/02/18 1124 BV10/10/18 REVIEWED WITH PT. ADREVIEWED WITH PATIENT 02/26/19 1117 JS. HOSPITALIZATION/MAJOR DIAGNOSTIC PROCEDURE HOSPITALIZATIONS RELATED TO SURGERY AND CHILDBIRTH REVIEW OF SYSTEMS REVIEWED BY: PROVIDER: LAURA FREEMAN . CONSTITUTIONAL: ANY CHANGE IN YOUR MEDICAL CONDITION? NO . CHILLS NO . FEVER NO . INFECTION: DO YOU HAVE NEW INFECTIONS? NO . DO YOU HAVE HISTORY OF MRSA? NO . MUSCULOSKELETAL: ANY NEW PATTERNS OF PAIN OR NUMBNESS? NO . GASTROENTEROLOGY: ANY NEW CHANGE IN BOWEL CONTROL? NO . GENITOURINARY: ANY NEW CHANGE IN BLADDER CONTROL? NO . IS THERE A CHANCE YOU COULD BE ? NO . HEMATOLOGY/LYMPH: DO YOU TAKE ANY BLOOD THINNERS? (FOR EXAMPLE- COUMADIN, PLAVIX, AGGRENOX, PLATEL, PRADAXA, OR XARELTO) NO . WHEN WAS YOUR LAST DOSE? DATE: TIME: . NEUROLOGY: HAVE YOU FALLEN IN THE PAST 12 MONTHS? NO . ANY NEW EXTREMITY NUMBNESS OR WEAKNESS? NO . CARDIOLOGY: DO YOU HAVE A PACEMAKER OR DEFIBRILLATOR? YES, DCS . RESPIRATORY: HAVE YOU BEEN SICK IN THE PAST WEEK? NO . FEVER NO . FLU LIKE SYMPTOMS? NO . COUGH NO . INTEGUMENTARY: DO YOU HAVE ANY RASHES OR OPEN SORES? NO . ALLERGIC/IMMUNO: ARE YOU ALLERGIC TO IV DYE? NO . ANY NEW ALLERGIES? NO . PSYCHIATRIC: DO YOU HAVE THOUGHTS OF HURTING YOURSELF OR SOMEONE ELSE? NO . ARE YOU ABUSED, NEGLECTED, OR IN AN UNSAFE ENVIRONMENT? NO . ENDOCRINOLOGY: ARE YOU DIABETIC? YES . OTHER: DO YOU NEED ANY PRESCRIPTIONS? YES, GABAPENTIN AND ROBAXIN . IF YES, PLEASE LIST: ____ . ANY NEW PROBLEMS WITH YOUR MEDICATIONS? NO . WHEN DID YOU LAST EAT? ____ . WHEN DID YOU LAST DRINK? ____ . WHAT DID YOU LAST DRINK? ____ . NAME OF PERSON DRIVING YOU HOME? ____ . DO YOU HAVE ANY OTHER QUESTIONS OR CONCERNS NO . VITAL SIGNS WT 122.8 LBS, HT 64 IN, BMI 21.08 INDEX, BP 129/75 MM HG, HR 58 /MIN, RR 16 /MIN, TEMP 96.9 F, OXYGEN SAT % 97%, SAFE IN ENV? (Y/N) Y, NA INITIALS SC 13:20, REVIEWED BY: LANCE. EXAMINATION GENERAL EXAMINATION: LUNGS: LUNG SOUNDS ARE CLEAR . HEART: HEART RATE REGULAR . DIAGNOSTIC:MRI L/S SPINE -11/21/16. 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) TREATMENT LUMBOSACRAL SPONDYLOSIS WITH RADICULOPATHY STOP ROBAXIN-750 TABLET, 750 MG, 1 TABLET, ORALLY, BID REFILL GABAPENTIN CAPSULE, 300 MG, 1 CAPSULE, ORALLY, FOUR TIMES DAILY FOR PAIN MDD4, 30 DAY(S), 120, REFILLS 2 START BACLOFEN TABLET, 5 MG, DIRECTED, ORALLY, FOUR TIMES DAILY, 30 DAYS, 120, REFILLS 2 NOTES: TRY EXTRA STRENGTH ACETAMINOPHEN 500MG 2 TAB BID.UNABLE TO TAKE NSAIDS S/P GASTRIC BYPASS. PROCEDURE CODES FA211 ESTABILISHED PATIENT [facility] CHARGE DISPOSITION & COMMUNICATION FOLLOW UP 2 MONTHS ELECTRONICALLY SIGNED BY LYDIA BERRY ON 03/28/2019 AT 03:35 PM EDT DISCLAIMER : THIS IS A VISIT SUMMARY EXTRACTED FROM THE [employer] CHART. IT IS NOT A COPY OF THE [employer] PROGRESS NOTE. VIV
== END ==
LOC: M PAIN 13:00
PROVIDERS: ATTEND Nurse Practitioner Family
DX: M47.27 Other spondylosis with radiculopathy, lumbosacral region (principal); J30.9 Allergic rhinitis, unspecified; E66.9 Obesity, unspecified; J32.9 Chronic sinusitis, unspecified; E55.9 Vitamin D deficiency, unspecified; L20.9 Atopic dermatitis, unspecified; M51.16 Intervertebral disc disorders with radiculopathy, lumbar region; E11.9 Type 2 diabetes mellitus without complications; Z91.018 Allergy to other foods; Z98.84 Bariatric surgery status; Z79.891 Long term (current) use of opiate analgesic; Z79.899 Other long term (current) drug therapy; Z88.5 Allergy status to narcotic agent; Z91.040 Latex allergy status; Z91.030 Bee allergy status; Z91.048 Other nonmedicinal substance allergy status

== ENCOUNTER → 2019-05-22 | Outpatient (CLI) | payer BC, OTHER | LOC: M PAIN 09:15 | PROVIDERS: ATTEND Nurse Practitioner Family | DX: M47.27 Other spondylosis with radiculopathy, lumbosacral region (principal); Z98.84 Bariatric surgery status; Z79.891 Long term (current) use of opiate analgesic; Z79.899 Other long term (current) drug therapy; Z88.5 Allergy status to narcotic agent; Z91.018 Allergy to other foods; Z91.030 Bee allergy status; Z91.040 Latex allergy status; Z91.048 Other nonmedicinal substance allergy status; Z96.9 Presence of functional implant, unspecified ==

== ENCOUNTER → 2019-09-05 | Outpatient (CLI) | payer BC, OTHER ==
--- NOTE | 2019-09-17 04:48 | ECWPNPC ---
PATIENT NAME: ALEJANDRINA VÁZQUEZ : 1965 GENDER: FEMALE VISIT DATE: 09/05/2019 DISCHARGE DATE: 09/05/19 1006 VISIT LOCKED DATE TIME: PHYSICIAN: BERHANE BURDICK MD RESOURCE: BERHANE BURDICK MD REASON FOR APPOINTMENT 1. DISCUSS DCS HISTORY OF PRESENT ILLNESS HISTORY OF PRESENT ILLNESS: PAIN THE PATIENT DESCRIBES THE PAIN... 54 YEAR OLD FEMALE PATIENT WITH A HISTORY OF CHRONIC LOW BACK AND LEG PAIN. THE PATIENT DESCRIBES THE PAIN ACHING, SHOOTING, SORE, "FOOT FUZZY", AND CONTINUOUS WITH A PAIN SCORE OF 2-7/10 DEPENDING ON PHYSICAL ACTIVITY. THE PATIENT SAYS SHE RECEIVED A DCS IMPLANT SEVERAL YEARS AGO, WHICH HAS BEEN HELPING WITH HER PAIN, HOWEVER SHE NOTICED A CHANGE WITHIN THE LAST YEAR. THE PATIENT SAYS WHEN SHE FIRST HAD THE DCS IMPLANT, THE BATTERY WOULD LAST FOR ONE WEEK, BUT NOW SHE HAS TO CHARGE THE DCS BATTERY EVERY OTHER DAY FOR A FULL CHARGE. THE PATIENT STATES SHE EXPERIENCES INCREASING ACHING, THROBBING PAIN THAT RADIATES IN HER HIP AND DOWN HER LEG WHILE CHARGING THE BATTERY AND THE PAIN LASTS FOR SEVERAL DAYS AFTERWARD. THE PATIENT SAYS SHE NEVER EXPERIENCED THE PAIN WHILE CHARGING THE BATTER IN THE BEGINNING, BUT IT JUST SUDDENLY BEGAN AROUND A YEAR AGO AND WAS NOT INTENSE STARTING OUT LIKE IT IS PRESENTLY. PATIENT DENIES UNEXPLAINABLE WEIGHT LOSS, FEVER, CHILLS, NEW CHANGES ON HER URINARY OR BOWEL CONTROL. FALL RISK SCREENING: SCREENING :NO FALLS REPORTED IN THE LAST YEAR CURRENT MEDICATIONS TAKING METROGEL 1 % GEL 1 APPLICATION TO AFFECTED AREA EXTERNALLY FACE ONCE A DAY PRN TAKING VITAMIN D 2000 UNIT TABLET 1 CAPSULE ORALLY ONCE A DAY TAKING EPIPEN 1 MG/ML DEVICE DIRECTED INTRAMUSCULAR NEEDED TAKING MULTIVITAL KAW - TABLET 2 CAP ORALLY ONCE DAILY TAKING CALCIUM CITRATE 250 MG TABLET 4 TABLETS ORALLY 2 TABS AT LUNCH AND 2 TABS AT DINNER TAKING TYLENOL 8 HOUR 650 MG TABLET EXTENDED RELEASE 2 TABLETS NEEDED ORALLY EVERY 8 HRS TAKING LEVOTHYROXINE SODIUM 50 MCG TABLET 1 TABLET ON AN EMPTY STOMACH IN THE MORNING ORALLY ONCE A DAY TAKING VITAMIN B12 500 MCG TABLET ORALLY ONCE A DAY TAKING FOLIC ACID 800 MCG TABLET PART OF MULTI ORALLY ONCE A DAY TAKING TRAMADOL HCL 50 MG TABLET 1 TABLET NEEDED ORALLY EVERY 6 HRS PRN FOR PAIN MDD2 TAKING EUCRISA 2 % OINTMENT 1 APPLICATION TO AFFECTED AREA EXTERNALLY TWICE A DAY TAKING DESONIDE 0.05 % CREAM 1 APPLICATION TO AFFECTED AREA EXTERNALLY TWICE A DAY TO SCALP AND FACE PINK FLAKY RASH TAKING ATARAX 25 MG TABLET DIRECTED PRN ITCH ORAL QHS TAKE 1 PRN ITCH EVERY OTHER DAY TAKING CICLOPIROX 0.77 % GEL 1 APPLICATION TO AFFECTED AREA EXTERNALLY NEEDED TO AFFECTED AREA TAKING CLOBETASOL PROPIONATE 0.05 % CREAM 1 APPLICATION TO AFFECTED AREA EXTERNALLY FINGERS ARMS TWICE A DAY NEEDED FOR FLARE-UPS TAKING PROTOPIC 0.03 % OINTMENT 1 APPLICATION TO AFFECTED AREA EXTERNALLY FINGERS ARMS TWICE A DAY PRN TAKING GABAPENTIN 300 MG CAPSULE 1 CAPSULE ORALLY FOUR TIMES DAILY FOR PAIN MDD4 TAKING TIZANIDINE HCL 4 MG TABLET 1 TABLET NEEDED ORALLY QHS MAY REPEAT IN 4 HRS IF NEEDED NOT-TAKING CLARITIN 10 MG TABLET 1 TABLET ORALLY ONCE A DAY NOT-TAKING BACLOFEN 5 MG TABLET DIRECTED ORALLY FOUR TIMES DAILY NOT-TAKING BIOTIN 48028 MCG TABLET DISINTEGRATING WITH KERATIN 1 TABLET ORALLY DAILY NOT-TAKING DIFLUCAN 200 MG TABLET 1 TABLET ORALLY WEEKLY BY MOUTH NOT-TAKING HYDROCODONE-ACETAMINOPHEN 5-325 MG TABLET 1 TABLET NEEDED ORALLY FOR PAIN Q4H PRN MDD4 MEDICATION LIST REVIEWED AND RECONCILED WITH THE PATIENT PAST MEDICAL HISTORY ASTHMA (INACTIVE SINCE CHILDHOOD) ATOPIC DERMATITIS BACK PAIN ALLERGIC RHINITIS, CAUSE UNSPECIFIED OBESITY, UNSPECIFIED UNSPECIFIED SINUSITIS (CHRONIC) UNSPECIFIED VITAMIN D 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 ALLERGY HEART MURMUR DIET CONTROLLED DIABETES TYPE 2 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 ALLERGIES CODEINE PHOSPHATE (FOR ALLERGIES USE ONLY): HIVES - ALLERGY ALMONDS, PECANS, BRAZIL NUTS: ANAPHYLAXIS - ALLERGY PEACHES AND PARESH CHERRIES: ANGIOEDEMA - ALLERGY BEE STINGS: SWELLING AT STING SITE - ALLERGY WOOL: HIVES - ALLERGY LATEX (FOR ALLERGY USE ONLY): RASH - ALLERGY SURGICAL HISTORY GASTRIC BYPASS 05/2015 LAMINECTOMY L5/S1 05/2014 HYSTERETOMY 08/1997 OOPHORECTOMY RIGHT 02/1997 BREAST REDUCTION 08/2000 DORSAL COLUMN STIMULATOR 07/02/2017 FAMILY HISTORY FATHER: 68 YRS, COPD, DIAGNOSED WITH OTHER SPECIFIED CONDITIONS INFLUENCING HEALTH STATUS MOTHER: ALIVE, TESTED (+) FOT TB DUE TO EXPOSURE, DOESN'T HAVE MATERNAL GRAND MOTHER: DIABETES TYPE I, DIABETES 1 SON(S) , 2 DAUGHTER(S) - HEALTHY. DENIES FAMILY HISTORY OF SKIN CANCER. SOCIAL HISTORY GENERAL: TOBACCO USE ARE YOU A:NONSMOKER EDUCATION LEVEL OF EDUCATION:NOT FINISHED COLLEGE DIET: REGULAR. LANGUAGE LANGUAGES SPOKEN:ANGOLAN DOMESTIC VIOLENCE DO YOU FEEL SAFE IN YOUR ENVIRONMENT?YES RECREATIONAL DRUG USE DRUG USE?NO EXERCISE: NO REGULAR EXERCISE. LEARNING BARRIERS / SPECIAL NEEDS CHANGE FROM LAST VISIT?NO BARRIERS TO LEARNING?NO HEARING IMPAIRED?NO VISION IMPAIRED?YES COGNITIVELY IMPAIRED?NO :CORRECTIVE LENSES READINESS TO LEARN?YES LEARNING PREFERENCES?YES :BOOKLETS, HANDOUTS LEARNING CAPABILITIES PRESENT?YES EMOTIONAL BARRIERS?NO SPECIAL DEVICES?NO OFFICE NURSE PRACTITIONER NEEDED?NO LUNG CANCER SCREENING SMOKING STATUS:NON SMOKER PAIN CLINIC PFS, CLERGY, PUBLIC HEALTH REFERRALS PFS REFERRAL NEEDED?NO CLERGY REFERRAL NEEDED?NO PUBLIC HEALTH REFERRAL NEEDED?NO WAS THE PROVIDER NOTIFIED OF ANY PERTINENT INFO?YES N/A HAS THE PATIENT BEEN EDUCATED REGARDING HIS/HER PLAN OF CARE?YES HAS THE PATIENT BEEN EDUCATED REGARDING PAIN, THE RISK FOR PAIN, THE IMPORTANCE OF EFFECTIVE PAIN MANAGEMENT, AND THE PAIN ASSESSMENT PROCESS?YES LATEX QUESTIONNAIRE LATEX ALLERGY : HAVE YOU EVER DEVELOPED ANY TYPE OF REACTION AFTER HANDLING LATEX PRODUCTS SUCH RUBBER GLOVES, CONDOMS, DIAPHRAGMS, BALLOONS, SOCKS, OR UNDERWEAR?YES LATEX ALLERGY : HAVE YOU EVER DEVELOPED ANY TYPE OF REACTION DURING OR AFTER DENTAL APPOINTMENT, VAGINAL/RECTAL EXAMINATION, SURGICAL PROCEDURE, OR ANY OTHER EXPOSURE?NO - PLEASE INDICATE :RUBBER GLOVES DATE ASKED : 05/22/2019 PATIENT WITH LATEX ALLERGY LATEX RISK : HAVE YOU EVER HAD ANY DIFFICULTY BREATHING OR HIVES AFTER EATING OR HANDLING ANY FRUITS, OR VEGETABLES; SUCH KIWI, BANANAS, STONE FRUITS, OR CHESTNUTSNO LATEX RISK : DO YOU HAVE A PREVIOUS PERSONAL HISTORY OF MORE THAN NINE SURGERIES, SPINA BIFIDA, OR REPEATED CATHERIZATIONS? NO LATEX RISK : ARE YOU FREQUENTLY EXPOSED TO LATEX PRODUCTS IN YOUR OCCUPATION?NO CAFFEINE CAFFEINE USE?YES HOW OFTEN AND HOW MUCH? 1-2 CUPS COFFEE/DAY ADVANCE DIRECTIVE ADVANCE DIRECTIVE DISCUSSED WITH PATIENT:YES 09/05/2019 PATIENT DOES NOT HAVE ANY ADVANCED DIRECTIVES AND SHE DECLINES INFORMATION ON HCP AT THIS TIME. BV YAZDANISM [id number] NONE ALCOHOL SCREENING DID YOU HAVE A DRINK CONTAINING ALCOHOL IN THE PAST YEAR?YES HOW MANY DRINKS DID YOU HAVE ON A TYPICAL DAY WHEN YOU WERE DRINKING IN THE PAST YEAR?1 OR 2 (0 POINTS) HOW OFTEN DID YOU HAVE A DRINK CONTAINING ALCOHOL IN THE PAST YEAR?MONTHLY OR LESS (1 POINT) POINTS1 INTERPRETATIONNEGATIVE REVIEWED WITH PT 07/02/18 1124 BV10/10/18 REVIEWED WITH PT. ADREVIEWED WITH PATIENT 02/26/19 1117 JSREVIEWED WITH PATIENT 09/05/19 0922 BV. HOSPITALIZATION/MAJOR DIAGNOSTIC PROCEDURE HOSPITALIZATIONS RELATED TO SURGERY AND CHILDBIRTH REVIEW OF SYSTEMS REVIEWED BY: PROVIDER: BERHANE BURDICK MD . CONSTITUTIONAL: ANY CHANGE IN YOUR MEDICAL CONDITION? NO . CHILLS NO . FEVER NO . INFECTION: DO YOU HAVE NEW INFECTIONS? NO . DO YOU HAVE HISTORY OF MRSA? NO . MUSCULOSKELETAL: ANY NEW PATTERNS OF PAIN OR NUMBNESS? NO . GASTROENTEROLOGY: ANY NEW CHANGE IN BOWEL CONTROL? NO . GENITOURINARY: ANY NEW CHANGE IN BLADDER CONTROL? NO . IS THERE A CHANCE YOU COULD BE ? NO . HEMATOLOGY/LYMPH: DO YOU TAKE ANY BLOOD THINNERS? (FOR EXAMPLE- COUMADIN, PLAVIX, AGGRENOX, PLATEL, PRADAXA, OR XARELTO) NO . WHEN WAS YOUR LAST DOSE? DATE: TIME: . NEUROLOGY: HAVE YOU FALLEN IN THE PAST 12 MONTHS? NO . ANY NEW EXTREMITY NUMBNESS OR WEAKNESS? NO . CARDIOLOGY: DO YOU HAVE A PACEMAKER OR DEFIBRILLATOR? NO, BUT PATIENT DOES HAVE A DORSAL COLUMN STIMULATOR . RESPIRATORY: HAVE YOU BEEN SICK IN THE PAST WEEK? NO . FEVER NO . FLU LIKE SYMPTOMS? NO . COUGH NO . INTEGUMENTARY: DO YOU HAVE ANY RASHES OR OPEN SORES? NO . ALLERGIC/IMMUNO: ARE YOU ALLERGIC TO IV DYE? NO . ANY NEW ALLERGIES? NO . PSYCHIATRIC: DO YOU HAVE THOUGHTS OF HURTING YOURSELF OR SOMEONE ELSE? NO . ARE YOU ABUSED, NEGLECTED, OR IN AN UNSAFE ENVIRONMENT? NO . ENDOCRINOLOGY: ARE YOU DIABETIC? YES . OTHER: DO YOU NEED ANY PRESCRIPTIONS? GABAPENTIN, TIZANIDINE . IF YES, PLEASE LIST: ____ . ANY NEW PROBLEMS WITH YOUR MEDICATIONS? NO . WHEN DID YOU LAST EAT? ____ . WHEN DID YOU LAST DRINK? ____ . WHAT DID YOU LAST DRINK? ____ . NAME OF PERSON DRIVING YOU HOME? ____ . DO YOU HAVE ANY OTHER QUESTIONS OR CONCERNS PATIENT HAS QUESTIONS ABOUT EXTREME PAIN THAT SHE GETS WHEN CHARGING THE DORSAL COLUMN BATTERY. SHE STATES THE PAIN THROBS,ACHES, AND RADIATES INTO BOTH HIPS AND LASTS A FEW DAYS. . VITAL SIGNS WT 130.1 LBS, HT 64 IN, BMI 22.33 INDEX, BP 133/63 MM HG, HR 57 /MIN, RR 18 /MIN, TEMP 98.3 F, OXYGEN SAT % 99%, NA INITIALS SC 09:15, REVIEWED BY: BV. EXAMINATION GENERAL EXAMINATION: PATIENT IS ALERT O X 3 AND COOPERATIVE. SURGICAL WOUNDS ARE HEALED AND DOING WELL. PATIENT HAS SOME TENDERNESS NEAR THE BATTERY SITE. 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 TREATMENT LUMBAR POST-LAMINECTOMY SYNDROME CLINICAL NOTES: WE DISCUSSED SEVERAL ISSUES WITH MS. VÁZQUEZ' PAIN MANAGEMENT CASE. I WOULD LIKE TO DISCUSS THE PATIENT'S CASE WITH KEI BLISS FROM [employer]. AFTER I DISCUSSED HER CASE WITH KEI FROM [employer]. KEI SHOULD CHECK IF THE BATTERY IS WORKING. I WILL REFER HER TO ARSENIO ECHEVARRIA TO CONSIDER REPLACING HER DCS BATTERY IF NEEDED. INSTRUCTIONS WERE GIVEN, QUESTIONS WERE ANSWERED, PATIENT REPORTS UNDERSTANDING AND AGREES WITH THE PLAN. I, CHIO MONTE, DOCUMENTED THE ABOVE INFORMATION ACTING A SCRIBE FOR DR. BURDICK. I HAVE REVIEWED THE ABOVE DOCUMENT, WRITTEN BY CHIO MONTE SCRIBAltagracia AND I VERIFY THAT IT IS ACCURATE. . PROCEDURE CODES FA211 ESTABILISHED PATIENT [facility] FAC[facility] CHARGE G8427 CURRENT MEDS W/DOSAGES DOCUMENTED G8730 PAIN ASSESS POS TOOL F/U PLAN DOC DISPOSITION & COMMUNICATION FOLLOW UP REASON: DICUSS CASE WITH KEI/REFER TO ARSENIO ECHEVARRIA ELECTRONICALLY SIGNED BY BERHANE BURDICK MD, ON 09/16/2019 AT 10:44 AM EST DISCLAIMER : THIS IS A VISIT SUMMARY EXTRACTED FROM THE [employer] CHART. IT IS NOT A COPY OF THE [employer] PROGRESS NOTE. MTDD
== END ==
LOC: M PAIN 09:00
PROVIDERS: ATTEND Anesthesiology
DX: M96.1 Postlaminectomy syndrome, not elsewhere classified (principal); E55.9 Vitamin D deficiency, unspecified; E11.9 Type 2 diabetes mellitus without complications; Z98.84 Bariatric surgery status; Z88.5 Allergy status to narcotic agent; Z91.018 Allergy to other foods; Z91.030 Bee allergy status; Z91.040 Latex allergy status; Z96.89 Presence of other specified functional implants; Z79.899 Other long term (current) drug therapy

== ENCOUNTER 2019-10-23 07:46 | Emergency (ER) | payer BC, OTHER ==
[~2019-10-23] VITALS: Ht 162.6 cm; Wt 59.5 kg
[2019-10-23 07:46] VITALS: BP 122/71
[2019-10-23] MEDS ORDERED: LEVO50TA5 (08:01)
[2019-10-23] MEDS ORDERED: GABA-843 (08:01)
[2019-10-23] MEDS ORDERED: HYDR-3363 (08:01)
[2019-10-23] MEDS ORDERED: FLUORESCEIN OPHTH 1 MG STRIP OD ONE (08:15)
[2019-10-23] MEDS ORDERED: TETRACAINE 0.5% OPHTH SOLN 4ML OD ONE (08:15)
[2019-10-23] MEDS ORDERED: POLYSOL OD (08:30)
[2019-10-23] MEDS ORDERED: CYCLOPENTOLATE 1% OPHTH SOLN 2 ML BTL OD ONE (08:30)
== END 2019-10-23 08:39 | disposition home or self-care (01) ==
LOC: M ED 07:46
DX: H57.89 Other specified disorders of eye and adnexa (principal); Z98.84 Bariatric surgery status; I51.9 Heart disease, unspecified; J45.909 Unspecified asthma, uncomplicated; M62.9 Disorder of muscle, unspecified; Z79.899 Other long term (current) drug therapy; Z88.5 Allergy status to narcotic agent; Z91.018 Allergy to other foods; Z91.030 Bee allergy status

== ENCOUNTER → 2019-11-05 | Outpatient (CLI) | payer BC, OTHER ==
[~2019-11-05] MED LIST changes: +GABA-843; +HYDR-3363; +LEVO50TA5; +POLYSOL OD
--- NOTE | 2019-11-05 15:18 | REPMRS ---
Patient History The patient states she had a clinical breast exam in October 2019. No known family history of cancer. Reductions of both breasts, 2003. Digital Woman Screen Mammo: November 05, 2019 - Exam #: [id number] Bilateral CC and MLO view(s) were taken. Technologist: Jamila Castillo, Technologist Prior study comparison: October 15, 2018, bilateral digital woman screen mammo performed at [facility]. October 11, 2017, digital woman screen mammo performed at [facility]. September 19, 2016, digital woman screen mammo performed at [facility]. FINDINGS: There are scattered fibroglandular densities. There are asymmetric breast parenchymal opacities and benign macrocalcifications again noted unchanged. There has been no change in the appearance of the mammogram from the prior studies. There is a mild amount of scattered fibroglandular density which is fairly symmetric. There is no interval development of dominant mass, architectural distortion, or grouped microcalcification suggestive of malignancy. 3-D tomosynthesis shows no additional findings. Assessment: BI-RADS/ACR category 2 mammogram. Benign Findings. Recommendation Routine screening mammogram of both breasts in 1 year. This patient's Lifetime Breast Cancer RIsk is estimated at 7.3 %. This mammogram was interpreted with the aid of an FDA-approved computer-aided dectection system. Electronically Signed By: Gurpreet Moncada MD 11/05/19 7034
== END ==
LOC: M WHC 13:01
PROVIDERS: ATTEND Nurse Practitioner Family
DX: Z12.31 Encounter for screening mammogram for malignant neoplasm of breast (principal)

== ENCOUNTER → 2019-11-06 | Outpatient (CLI) | payer BC, OTHER ==
--- NOTE | 2019-11-25 01:46 | ECWPNPC ---
PATIENT NAME: ALEJANDRINA VÁZQUEZ : 1965 GENDER: FEMALE VISIT DATE: 11/06/2019 DISCHARGE DATE: 11/06/19 1227 VISIT LOCKED DATE TIME: PHYSICIAN: LAURA KILLIAN RESOURCE: LAURA KILLIAN REASON FOR APPOINTMENT 1. PER DR Lund HISTORY OF PRESENT ILLNESS HISTORY OF PRESENT ILLNESS: HERE FOR FOLLOW-UP OF PERSISTENT LOW BACK PAIN AND RIGHT LEG PAIN. HAVING DORSAL COLUMN STIMULATOR ISSUES. WILL BE SEEING DR. ACOSTA IN THE NEAR FUTURE FOR BATTERY CHANGE. CURRENTLY USING HYDROCODONE 5/325 SPARINGLY FOR SEVERE PAIN EPISODES. SHE IS NOT ABLE TO TAKE THIS IN THE DAY AND WORK. SHE WOULD LIKE TO HAVE TRAMADOL AVAILABLE DURING THE DAYTIME. SHE'S BEEN ON THIS IN THE PAST AND WAS ABLE TO TOLERATE JOB RESPONSIBILITY WHEN USING TRAMADOL. SHE IS ROCKING IN DISCOMFORT. RATING PAIN LEVEL A 5-10 OVER 10 VAS. PAIN THE PATIENT DESCRIBES THE PAIN... FALL RISK SCREENING: SCREENING :NO FALLS REPORTED IN THE LAST YEAR CURRENT MEDICATIONS TAKING VITAMIN D 2000 UNIT TABLET 1 CAPSULE ORALLY ONCE A DAY TAKING EPIPEN 1 MG/ML DEVICE DIRECTED INTRAMUSCULAR NEEDED TAKING MULTIVITAL [place] - TABLET 2 CAP ORALLY ONCE DAILY TAKING CALCIUM CITRATE 250 MG TABLET 4 TABLETS ORALLY 2 TABS AT LUNCH AND 2 TABS AT DINNER TAKING TYLENOL 8 HOUR 650 MG TABLET EXTENDED RELEASE 2 TABLETS NEEDED ORALLY EVERY 8 HRS TAKING LEVOTHYROXINE SODIUM 50 MCG TABLET 1 TABLET ON AN EMPTY STOMACH IN THE MORNING ORALLY ONCE A DAY TAKING VITAMIN B12 500 MCG TABLET ORALLY ONCE A DAY TAKING FOLIC ACID 800 MCG TABLET PART OF MULTI ORALLY ONCE A DAY TAKING TRAMADOL HCL 50 MG TABLET 1 TABLET NEEDED ORALLY EVERY 6 HRS PRN FOR PAIN MDD2, NOTES: NEEDS TAKING DESONIDE 0.05 % CREAM 1 APPLICATION TO AFFECTED AREA EXTERNALLY TWICE A DAY TO SCALP AND FACE PINK FLAKY RASH TAKING CICLOPIROX 0.77 % GEL 1 APPLICATION TO AFFECTED AREA EXTERNALLY NEEDED TO AFFECTED AREA TAKING CLOBETASOL PROPIONATE 0.05 % CREAM 1 APPLICATION TO AFFECTED AREA EXTERNALLY FINGERS ARMS TWICE A DAY NEEDED FOR FLARE-UPS TAKING PROTOPIC 0.03 % OINTMENT 1 APPLICATION TO AFFECTED AREA EXTERNALLY FINGERS ARMS TWICE A DAY PRN TAKING GABAPENTIN 300 MG CAPSULE 1 CAPSULE ORALLY FOUR TIMES DAILY FOR PAIN MDD4 TAKING TIZANIDINE HCL 4 MG TABLET 1 TABLET NEEDED ORALLY QHS MAY REPEAT IN 4 HRS IF NEEDED TAKING ATARAX 25 MG TABLET DIRECTED PRN ITCH ORAL QHS TAKE 1 PRN ITCH EVERY OTHER DAY TAKING PROTOPIC 0.1 % OINTMENT 1 APPLICATION TO AFFECTED AREA EXTERNALLY TWICE A DAY PRN TAKING HYDROCODONE-ACETAMINOPHEN 5-325 MG TABLET 1 TABLET NEEDED ORALLY FOR PAIN Q8H PRN FOR PAIN MDD3 NOT-TAKING EUCRISA 2 % OINTMENT 1 APPLICATION TO AFFECTED AREA EXTERNALLY TWICE A DAY NOT-TAKING METROGEL 1 % GEL 1 APPLICATION TO AFFECTED AREA EXTERNALLY FACE ONCE A DAY PRN NOT-TAKING CLARITIN 10 MG TABLET 1 TABLET ORALLY ONCE A DAY NOT-TAKING BACLOFEN 5 MG TABLET DIRECTED ORALLY FOUR TIMES DAILY NOT-TAKING BIOTIN 64597 MCG TABLET DISINTEGRATING WITH KERATIN 1 TABLET ORALLY DAILY NOT-TAKING DIFLUCAN 200 MG TABLET 1 TABLET ORALLY WEEKLY BY MOUTH MEDICATION LIST REVIEWED AND RECONCILED WITH THE PATIENT PAST MEDICAL HISTORY ASTHMA (INACTIVE SINCE CHILDHOOD) ATOPIC DERMATITIS BACK PAIN ALLERGIC RHINITIS, CAUSE UNSPECIFIED OBESITY, UNSPECIFIED UNSPECIFIED SINUSITIS (CHRONIC) UNSPECIFIED VITAMIN D 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 ALLERGY HEART MURMUR DIET CONTROLLED DIABETES TYPE 2 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 ALLERGIES CODEINE PHOSPHATE (FOR ALLERGIES USE ONLY): HIVES - ALLERGY ALMONDS, PECANS, BRAZIL NUTS: ANAPHYLAXIS - ALLERGY PEACHES AND PARESH CHERRIES: ANGIOEDEMA - ALLERGY BEE STINGS: SWELLING AT STING SITE - ALLERGY WOOL: HIVES - ALLERGY LATEX (FOR ALLERGY USE ONLY): RASH - ALLERGY SURGICAL HISTORY GASTRIC BYPASS 05/2015 LAMINECTOMY L5/S1 05/2014 HYSTERETOMY 08/1997 OOPHORECTOMY RIGHT 02/1997 BREAST REDUCTION 08/2000 DORSAL COLUMN STIMULATOR 07/02/2017 FAMILY HISTORY FATHER: 68 YRS, COPD, DIAGNOSED WITH OTHER SPECIFIED CONDITIONS INFLUENCING HEALTH STATUS MOTHER: ALIVE, TESTED (+) FOT TB DUE TO EXPOSURE, DOESN'T HAVE MATERNAL GRAND MOTHER: DIABETES TYPE I, DIABETES 1 SON(S) , 2 DAUGHTER(S) - HEALTHY. DENIES FAMILY HISTORY OF SKIN CANCER. SOCIAL HISTORY GENERAL: TOBACCO USE ARE YOU A:NONSMOKER HIV / HEP-C SCREENING HIV TEST OFFERED TO PATIENT:YES DATE OFFERED:11/05/2019 TEST ACCEPTED:NO HEP-C TEST OFFERED TO PATIENT:YES DATE OFFERED:11/05/2019 REASON:PATIENT DECLINED TEST ACCEPTED:NO REASON:PATIENT DECLINED BROCHURE PROVIDED TO PATIENTNO OTHERS AT HOME: SPOUSE. EDUCATION LEVEL OF EDUCATION:NOT FINISHED COLLEGE DIET: LOWER SUGARS, LOWER CARBS. LANGUAGE LANGUAGES SPOKEN:LUXEMBOURGER DOMESTIC VIOLENCE DO YOU FEEL SAFE IN YOUR ENVIRONMENT?YES RECREATIONAL DRUG USE DRUG USE?NO EXERCISE: NO REGULAR EXERCISE. LEARNING BARRIERS / SPECIAL NEEDS CHANGE FROM LAST VISIT?NO BARRIERS TO LEARNING?NO HEARING IMPAIRED?NO VISION IMPAIRED?YES COGNITIVELY IMPAIRED?NO :CORRECTIVE LENSES READINESS TO LEARN?YES LEARNING PREFERENCES?YES :BOOKLETS, HANDOUTS LEARNING CAPABILITIES PRESENT?YES EMOTIONAL BARRIERS?NO SPECIAL DEVICES?NO ASSOCIATE MARKETING MANAGER NEEDED?NO LUNG CANCER SCREENING SMOKING STATUS:NON SMOKER PAIN CLINIC PFS, CLERGY, PUBLIC HEALTH REFERRALS PFS REFERRAL NEEDED?NO CLERGY REFERRAL NEEDED?NO PUBLIC HEALTH REFERRAL NEEDED?NO WAS THE PROVIDER NOTIFIED OF ANY PERTINENT INFO?YES N/A HAS THE PATIENT BEEN EDUCATED REGARDING HIS/HER PLAN OF CARE?YES HAS THE PATIENT BEEN EDUCATED REGARDING PAIN, THE RISK FOR PAIN, THE IMPORTANCE OF EFFECTIVE PAIN MANAGEMENT, AND THE PAIN ASSESSMENT PROCESS?YES LATEX QUESTIONNAIRE LATEX ALLERGY : HAVE YOU EVER DEVELOPED ANY TYPE OF REACTION AFTER HANDLING LATEX PRODUCTS SUCH RUBBER GLOVES, CONDOMS, DIAPHRAGMS, BALLOONS, SOCKS, OR UNDERWEAR?YES - PLEASE INDICATE :RUBBER GLOVES LATEX ALLERGY : HAVE YOU EVER DEVELOPED ANY TYPE OF REACTION DURING OR AFTER DENTAL APPOINTMENT, VAGINAL/RECTAL EXAMINATION, SURGICAL PROCEDURE, OR ANY OTHER EXPOSURE?NO LATEX RISK : HAVE YOU EVER HAD ANY DIFFICULTY BREATHING OR HIVES AFTER EATING OR HANDLING ANY FRUITS, OR VEGETABLES; SUCH KIWI, BANANAS, STONE FRUITS, OR CHESTNUTSNO LATEX RISK : DO YOU HAVE A PREVIOUS PERSONAL HISTORY OF MORE THAN NINE SURGERIES, SPINA BIFIDA, OR REPEATED CATHERIZATIONS? NO LATEX RISK : ARE YOU FREQUENTLY EXPOSED TO LATEX PRODUCTS IN YOUR OCCUPATION?NO DATE ASKED : 11/05/2019 PATIENT WITH LATEX ALLERGY CAFFEINE CAFFEINE USE?YES HOW OFTEN AND HOW MUCH? 1-2 CUPS COFFEE/DAY ADVANCE DIRECTIVE ADVANCE DIRECTIVE DISCUSSED WITH PATIENT:YES 11/06/2019 PATIENT DOES NOT HAVE ANY ADVANCED DIRECTIVES AND SHE DECLINES INFORMATION ON HCP AT THIS TIME. JS ORTHODOX [id number] NONE MARITAL STATUS: . 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 HOSPITALIZATION/MAJOR DIAGNOSTIC PROCEDURE HOSPITALIZATIONS RELATED TO SURGERY AND CHILDBIRTH REVIEW OF SYSTEMS REVIEWED BY: PROVIDER: LAURA FREEMAN . CONSTITUTIONAL: ANY CHANGE IN YOUR MEDICAL CONDITION? NO . CHILLS NO . FEVER NO . INFECTION: DO YOU HAVE NEW INFECTIONS? NO . DO YOU HAVE HISTORY OF MRSA? NO . MUSCULOSKELETAL: ANY NEW PATTERNS OF PAIN OR NUMBNESS? YES, STATES INCREASED PAIN, FEELS THAT HER DCS IS NOT WORKING PROPERLY . GASTROENTEROLOGY: ANY NEW CHANGE IN BOWEL CONTROL? NO . GENITOURINARY: ANY NEW CHANGE IN BLADDER CONTROL? NO . IS THERE A CHANCE YOU COULD BE ? NO . HEMATOLOGY/LYMPH: DO YOU TAKE ANY BLOOD THINNERS? (FOR EXAMPLE- COUMADIN, PLAVIX, AGGRENOX, PLATEL, PRADAXA, OR XARELTO) NO . WHEN WAS YOUR LAST DOSE? DATE: TIME: . NEUROLOGY: HAVE YOU FALLEN IN THE PAST 12 MONTHS? NO . ANY NEW EXTREMITY NUMBNESS OR WEAKNESS? NO . CARDIOLOGY: DO YOU HAVE A PACEMAKER OR DEFIBRILLATOR? NO, DCS . RESPIRATORY: HAVE YOU BEEN SICK IN THE PAST WEEK? YES . FEVER NO . FLU LIKE SYMPTOMS? NO . COUGH YES, DRY COUGH . INTEGUMENTARY: DO YOU HAVE ANY RASHES OR OPEN SORES? NO . ALLERGIC/IMMUNO: ARE YOU ALLERGIC TO IV DYE? NO . ANY NEW ALLERGIES? NO . PSYCHIATRIC: DO YOU HAVE THOUGHTS OF HURTING YOURSELF OR SOMEONE ELSE? NO . ARE YOU ABUSED, NEGLECTED, OR IN AN UNSAFE ENVIRONMENT? NO . ENDOCRINOLOGY: ARE YOU DIABETIC? YES . OTHER: DO YOU NEED ANY PRESCRIPTIONS? YES . IF YES, PLEASE LIST: ____GABAPENTIN, TIZANIDINE, HYDROCODONE, TRAMADOL . ANY NEW PROBLEMS WITH YOUR MEDICATIONS? NO . WHEN DID YOU LAST EAT? ____ . WHEN DID YOU LAST DRINK? ____ . WHAT DID YOU LAST DRINK? ____ . NAME OF PERSON DRIVING YOU HOME? ____ . DO YOU HAVE ANY OTHER QUESTIONS OR CONCERNS NO . VITAL SIGNS WT 133.2 LBS, HT 64 IN, BMI 22.86 INDEX, BP 132/72 MM HG, HR 60 /MIN, RR 18 /MIN, TEMP 96.0 F, OXYGEN SAT % 100%, SAFE IN ENV? (Y/N) YES, NA INITIALS AW 1123, REVIEWED BY: CINDY. EXAMINATION GENERAL EXAMINATION: LUNGS: LUNG SOUNDS ARE CLEAR . HEART: HEART RATE REGULAR . DIAGNOSTIC:MRI L/S SPINE -11/21/16. 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 BRINGS IN MEDICATIONS WHICH IS APPROPRIATE FOR WHAT WAS DISPENSED. RECENT URINE TOXICOLOGY REVIEWED. NO UNAUTHORIZED MEDICATIONS. NO ILLICIT SUBSTANCES AND PRESCRIBED MEDICATIONS WERE PRESENT. , RISKS OF NARCOTIC/OPIOD MEDICATIONS INCLUDES BUT IS NOT LIMITED TO RISK OF DEPENDANCE/DEVELOPMENT OF ADDICTION, MOOD DISTURBANCE AND DEPRESSION, OSTEOPOROSIS, HORMONAL AND LABIDAL CHANGES, RESPIRATORY DEPRESSION AND . PATIENT IS ADVISED NOT TO DRIVE OR DRINK ALCOHOL WHILE ON THESE MEDICATIONS. PROCEDURE CODES FA211 ESTABILISHED PATIENT [facility] CHARGE DISPOSITION & COMMUNICATION FOLLOW UP 2 MONTHS ELECTRONICALLY SIGNED BY LYDIA BERRY ON 11/24/2019 AT 02:22 PM EDT DISCLAIMER : THIS IS A VISIT SUMMARY EXTRACTED FROM THE [employer] CHART. IT IS NOT A COPY OF THE [employer] PROGRESS NOTE. VIV
== END ==
LOC: M PAIN 10:45
PROVIDERS: ATTEND Nurse Practitioner Family
DX: M47.27 Other spondylosis with radiculopathy, lumbosacral region (principal); Z79.891 Long term (current) use of opiate analgesic; Z79.899 Other long term (current) drug therapy; Z98.84 Bariatric surgery status; Z88.5 Allergy status to narcotic agent; Z91.030 Bee allergy status; Z91.018 Allergy to other foods; Z91.040 Latex allergy status; Z91.048 Other nonmedicinal substance allergy status

== ENCOUNTER → 2019-12-18 | Outpatient (CLI) | payer OTHER ==
--- NOTE | 2019-12-19 23:11 | ECWPNPC ---
PATIENT NAME: ALEJANDRINA VÁZQUEZ : 1965 GENDER: FEMALE VISIT DATE: 12/18/2019 DISCHARGE DATE: 12/18/19 1049 VISIT LOCKED DATE TIME: PHYSICIAN: LAURA KILLIAN RESOURCE: LAURA KILLIAN REASON FOR APPOINTMENT 1. BACK [phone] HISTORY OF PRESENT ILLNESS HISTORY OF PRESENT ILLNESS: PATIENT HAS AGREED TO TELEMED VISIT VIA ZOOM TODAY. THIS IS A FOLLOW-UP AND MEDICINE MANAGEMENT OF CHRONIC LOW BACK PAIN. CONTINUES TO WAIT TO SEE DR. ACOSTA FOR DORSAL COLUMN STIMULATOR BATTERY CHANGE. HAS BEEN HAVING A SIGNIFICANT AMOUNT OF INCREASED PAIN SINCE NOT USING DORSAL COLUMN STIMULATOR. WE HAVE BEEN TRYING TO MANAGE HER PAIN WITH MEDICATIONS UNTIL SHE IS ABLE TO HAVE DCS BATTERY CHANGE. CURRENTLY USING HYDROCODONE 10/325 3 TABLETS DAILY, GABAPENTIN 300 MG 4 TIMES A DAY, AND TIZANIDINE 4 MG EVERY 6 HOURS NEEDED. HAS BEEN HAVING SOME ITCHING THAT IS RESOLVED WITH HYDROXYZINE 25 MG DAILY. FEELS MEDICATION IS SOMEWHAT HELPFUL. DENIES SIDE EFFECTS. RATING PAIN LEVEL A 7/10 VAS. PAIN THE PATIENT DESCRIBES THE PAIN... FALL RISK SCREENING: SCREENING :NO FALLS REPORTED IN THE LAST YEAR CURRENT MEDICATIONS TAKING BIOTIN 65970 MCG TABLET DISINTEGRATING WITH KERATIN 1 TABLET ORALLY DAILY TAKING CALCIUM CITRATE 250 MG TABLET 4 TABLETS ORALLY 2 TABS AT LUNCH AND 2 TABS AT DINNER TAKING CICLOPIROX 0.77 % GEL 1 APPLICATION TO AFFECTED AREA EXTERNALLY NEEDED TO AFFECTED AREA TAKING CLOBETASOL PROPIONATE 0.05 % CREAM 1 APPLICATION TO AFFECTED AREA EXTERNALLY FINGERS ARMS TWICE A DAY NEEDED FOR FLARE-UPS TAKING DESONIDE 0.05 % CREAM 1 APPLICATION TO AFFECTED AREA EXTERNALLY TWICE A DAY TO SCALP AND FACE PINK FLAKY RASH TAKING EPIPEN 1 MG/ML DEVICE DIRECTED INTRAMUSCULAR NEEDED TAKING FOLIC ACID 800 MCG TABLET PART OF MULTI ORALLY ONCE A DAY TAKING GABAPENTIN 300 MG CAPSULE 1 CAPSULE ORALLY FOUR TIMES DAILY FOR PAIN MDD4 TAKING LEVOTHYROXINE SODIUM 50 MCG TABLET 1 TABLET ON AN EMPTY STOMACH IN THE MORNING ORALLY ONCE A DAY TAKING MULTIVITAL [place] - TABLET 2 CAP ORALLY ONCE DAILY TAKING PROTOPIC 0.03 % OINTMENT 1 APPLICATION TO AFFECTED AREA EXTERNALLY FINGERS ARMS TWICE A DAY PRN TAKING TIZANIDINE HCL 4 MG TABLET 1 TABLET NEEDED ORALLY QHS MAY REPEAT IN 4 HRS IF NEEDED TAKING TRAMADOL HCL 50 MG TABLET 1 TABLET NEEDED ORALLY Q4-6HR PRN PAIN MDD6 TAKING TYLENOL 8 HOUR 650 MG TABLET EXTENDED RELEASE 2 TABLETS NEEDED ORALLY EVERY 8 HRS TAKING VITAMIN B12 500 MCG TABLET ORALLY ONCE A DAY TAKING VITAMIN D 2000 UNIT TABLET 1 CAPSULE ORALLY ONCE A DAY TAKING HYDROXYZINE HCL 25 MG TABLET 1 TABLET NEEDED ORALLY EVERY 8 HRS TAKING HYDROCODONE-ACETAMINOPHEN 10-325 MG TABLET 1 TABLET NEEDED ORALLY EVERY 8 HRS, MDD 3 NOT-TAKING ATARAX 25 MG TABLET DIRECTED PRN ITCH ORAL QHS TAKE 1 PRN ITCH EVERY OTHER DAY NOT-TAKING BACLOFEN 5 MG TABLET DIRECTED ORALLY FOUR TIMES DAILY NOT-TAKING HYDROCODONE-ACETAMINOPHEN 5-325 MG TABLET 1 TABLET NEEDED ORALLY FOR PAIN Q8H PRN FOR PAIN MDD3 NOT-TAKING CLARITIN 10 MG TABLET 1 TABLET ORALLY ONCE A DAY NOT-TAKING DIFLUCAN 200 MG TABLET 1 TABLET ORALLY WEEKLY BY MOUTH NOT-TAKING EUCRISA 2 % OINTMENT 1 APPLICATION TO AFFECTED AREA EXTERNALLY TWICE A DAY NOT-TAKING METROGEL 1 % GEL 1 APPLICATION TO AFFECTED AREA EXTERNALLY FACE ONCE A DAY PRN NOT-TAKING NORCO 5-325 MG TABLET 1 TABLET NEEDED ORALLY Q8HR PRN SEVERE PAIN MDD2 #45 TAB SHOULD LAST 30 DAYS MEDICATION LIST REVIEWED AND RECONCILED WITH THE PATIENT PAST MEDICAL HISTORY ASTHMA (INACTIVE SINCE CHILDHOOD) ATOPIC DERMATITIS BACK PAIN ALLERGIC RHINITIS, CAUSE UNSPECIFIED OBESITY, UNSPECIFIED UNSPECIFIED SINUSITIS (CHRONIC) UNSPECIFIED VITAMIN D 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 ALLERGY HEART MURMUR DIET CONTROLLED DIABETES TYPE 2 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 ALLERGIES CODEINE PHOSPHATE (FOR ALLERGIES USE ONLY): HIVES - ALLERGY ALMONDS, PECANS, BRAZIL NUTS: ANAPHYLAXIS - ALLERGY PEACHES AND PARESH CHERRIES: ANGIOEDEMA - ALLERGY BEE STINGS: SWELLING AT STING SITE - ALLERGY WOOL: HIVES - ALLERGY LATEX (FOR ALLERGY USE ONLY): RASH - ALLERGY SURGICAL HISTORY GASTRIC BYPASS 05/2015 LAMINECTOMY L5/S1 05/2014 HYSTERETOMY 08/1997 OOPHORECTOMY RIGHT 02/1997 BREAST REDUCTION 08/2000 DORSAL COLUMN STIMULATOR 07/02/2017 FAMILY HISTORY FATHER: 68 YRS, COPD, DIAGNOSED WITH OTHER SPECIFIED CONDITIONS INFLUENCING HEALTH STATUS MOTHER: ALIVE, TESTED (+) FOT TB DUE TO EXPOSURE, DOESN'T HAVE MATERNAL GRAND MOTHER: DIABETES TYPE I, DIABETES 1 SON(S) , 2 DAUGHTER(S) - HEALTHY. DENIES FAMILY HISTORY OF SKIN CANCER. SOCIAL HISTORY GENERAL: TOBACCO USE ARE YOU A:NONSMOKER LATEX QUESTIONNAIRE LATEX ALLERGY : HAVE YOU EVER DEVELOPED ANY TYPE OF REACTION AFTER HANDLING LATEX PRODUCTS SUCH RUBBER GLOVES, CONDOMS, DIAPHRAGMS, BALLOONS, SOCKS, OR UNDERWEAR?YES - PLEASE INDICATE :RUBBER GLOVES LATEX ALLERGY : HAVE YOU EVER DEVELOPED ANY TYPE OF REACTION DURING OR AFTER DENTAL APPOINTMENT, VAGINAL/RECTAL EXAMINATION, SURGICAL PROCEDURE, OR ANY OTHER EXPOSURE?NO LATEX RISK : HAVE YOU EVER HAD ANY DIFFICULTY BREATHING OR HIVES AFTER EATING OR HANDLING ANY FRUITS, OR VEGETABLES; SUCH KIWI, BANANAS, STONE FRUITS, OR CHESTNUTSNO LATEX RISK : DO YOU HAVE A PREVIOUS PERSONAL HISTORY OF MORE THAN NINE SURGERIES, SPINA BIFIDA, OR REPEATED CATHERIZATIONS? NO LATEX RISK : ARE YOU FREQUENTLY EXPOSED TO LATEX PRODUCTS IN YOUR OCCUPATION?NO DATE ASKED : 11/05/2019 PATIENT WITH LATEX ALLERGY LUNG CANCER SCREENING SMOKING STATUS:NON SMOKER ALCOHOL SCREENING DID YOU HAVE A DRINK CONTAINING ALCOHOL IN THE PAST YEAR?YES HOW MANY DRINKS DID YOU HAVE ON A TYPICAL DAY WHEN YOU WERE DRINKING IN THE PAST YEAR?1 OR 2 (0 POINTS) HOW OFTEN DID YOU HAVE A DRINK CONTAINING ALCOHOL IN THE PAST YEAR?MONTHLY OR LESS (1 POINT) POINTS1 INTERPRETATIONNEGATIVE RECREATIONAL DRUG USE DRUG USE?NO CAFFEINE CAFFEINE USE?YES HOW OFTEN AND HOW MUCH? 1-2 CUPS COFFEE/DAY HIV / HEP-C SCREENING HIV TEST OFFERED TO PATIENT:YES DATE OFFERED:11/05/2019 TEST ACCEPTED:NO HEP-C TEST OFFERED TO PATIENT:YES DATE OFFERED:11/05/2019 REASON:PATIENT DECLINED TEST ACCEPTED:NO REASON:PATIENT DECLINED BROCHURE PROVIDED TO PATIENTNO PROTESTANT [id number] NONE LANGUAGE LANGUAGES SPOKEN:ICELANDIC EDUCATION LEVEL OF EDUCATION:NOT FINISHED COLLEGE LEARNING BARRIERS / SPECIAL NEEDS CHANGE FROM LAST VISIT?NO BARRIERS TO LEARNING?NO HEARING IMPAIRED?NO VISION IMPAIRED?YES COGNITIVELY IMPAIRED?NO :CORRECTIVE LENSES READINESS TO LEARN?YES LEARNING PREFERENCES?YES :BOOKLETS, HANDOUTS LEARNING CAPABILITIES PRESENT?YES EMOTIONAL BARRIERS?NO SPECIAL DEVICES?NO DRUM CLEANER NEEDED?NO DOMESTIC VIOLENCE DO YOU FEEL SAFE IN YOUR ENVIRONMENT?YES 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 DIET: LOWER SUGARS, LOWER CARBS. EXERCISE: NO REGULAR EXERCISE. MARITAL STATUS: . OTHERS AT HOME: SPOUSE. NEW PATIENT PAIN DIARY TODAY'S VISITNOTES 12/18/2019 PATIENT DESCRIBES PAIN :ACHING, BURNING, HAVE IT ALL THE TIME, STABBING, THROBBING FROM 0-10, WHAT LEVEL IS YOUR PAIN TODAY?7 PAIN CLINIC PFS, CLERGY, PUBLIC HEALTH REFERRALS PFS REFERRAL NEEDED?NO CLERGY REFERRAL NEEDED?NO PUBLIC HEALTH REFERRAL NEEDED?NO WAS THE PROVIDER NOTIFIED OF ANY PERTINENT INFO?YES N/A HAS THE PATIENT BEEN EDUCATED REGARDING HIS/HER PLAN OF CARE?YES HAS THE PATIENT BEEN EDUCATED REGARDING PAIN, THE RISK FOR PAIN, THE IMPORTANCE OF EFFECTIVE PAIN MANAGEMENT, AND THE PAIN ASSESSMENT PROCESS?YES ADVANCE DIRECTIVE ADVANCE DIRECTIVE DISCUSSED WITH PATIENT:YES 12/18/2019 PATIENT DOES NOT HAVE ANY ADVANCED DIRECTIVES AND SHE DECLINES INFORMATION ON HCP AT THIS TIME. JS HOSPITALIZATION/MAJOR DIAGNOSTIC PROCEDURE HOSPITALIZATIONS RELATED TO SURGERY AND CHILDBIRTH REVIEW OF SYSTEMS REVIEWED BY: PROVIDER: LAURA FREEMAN . CONSTITUTIONAL: ANY CHANGE IN YOUR MEDICAL CONDITION? NO . CHILLS NO . FEVER NO . INFECTION: DO YOU HAVE NEW INFECTIONS? NO . DO YOU HAVE HISTORY OF MRSA? NO . MUSCULOSKELETAL: ANY NEW PATTERNS OF PAIN OR NUMBNESS? NO . GASTROENTEROLOGY: ANY NEW CHANGE IN BOWEL CONTROL? YES, STATES MORE DIFFCULTY WITH HAVING BOWEL MOVEMENTS SINCE INCREASING THE MEDICATION DOSE . GENITOURINARY: ANY NEW CHANGE IN BLADDER CONTROL? NO . IS THERE A CHANCE YOU COULD BE ? NO . HEMATOLOGY/LYMPH: DO YOU TAKE ANY BLOOD THINNERS? (FOR EXAMPLE- COUMADIN, PLAVIX, AGGRENOX, PLATEL, PRADAXA, OR XARELTO) NO . WHEN WAS YOUR LAST DOSE? DATE: TIME: . NEUROLOGY: HAVE YOU FALLEN IN THE PAST 12 MONTHS? YES, STATES FALL GOING UP THE STAIRS THIS PAST WEEKEND, CUT EYE ON GLASS AND HIT HEAD ON THE WALL. NO ED VISIT . ANY NEW EXTREMITY NUMBNESS OR WEAKNESS? NO . CARDIOLOGY: DO YOU HAVE A PACEMAKER OR DEFIBRILLATOR? YES, DCS . RESPIRATORY: HAVE YOU BEEN SICK IN THE PAST WEEK? NO . FEVER NO . FLU LIKE SYMPTOMS? NO . COUGH NO . INTEGUMENTARY: DO YOU HAVE ANY RASHES OR OPEN SORES? NO . ALLERGIC/IMMUNO: ARE YOU ALLERGIC TO IV DYE? NO . ANY NEW ALLERGIES? NO . PSYCHIATRIC: DO YOU HAVE THOUGHTS OF HURTING YOURSELF OR SOMEONE ELSE? NO . ARE YOU ABUSED, NEGLECTED, OR IN AN UNSAFE ENVIRONMENT? NO . ENDOCRINOLOGY: ARE YOU DIABETIC? YES, TYPE II DIET CONTROLLED . OTHER: DO YOU NEED ANY PRESCRIPTIONS? YES . IF YES, PLEASE LIST: ____HYDROCODONE DUE IN 1 WEEK . ANY NEW PROBLEMS WITH YOUR MEDICATIONS? NO . WHEN DID YOU LAST EAT? ____ . WHEN DID YOU LAST DRINK? ____ . WHAT DID YOU LAST DRINK? ____ . NAME OF PERSON DRIVING YOU HOME? ____ . DO YOU HAVE ANY OTHER QUESTIONS OR CONCERNS NO . EXAMINATION GENERAL EXAMINATION: GENERALNO ACUTE DISTRESS, WELL NOURISHED AND HYDRATED. PSYCHAPPROPRIATE MOOD AND AFFECT . FACE:UNREMARKABLE. 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 CONTINUE CURRENT CHRONIC PAIN MEDICATIONS. SHE WILL BE SEEING DR. ACOSTA IN 2 WEEKS. FOLLOW-UP IS SCHEDULED AT CLINIC IN 6 WEEKS. TOTAL TIME DURING TELEMED VISIT WAS APPROXIMATELY 11 MINUTES. OTHERS NOTES: NO VITALS OBTAINED DUE TO VIRTUAL VISIT. DISPOSITION & COMMUNICATION FOLLOW UP 6 WEEKS (REASON: LBP/MED MGMNT) ELECTRONICALLY SIGNED BY LYDIA BERRY ON 12/19/2019 AT 02:38 PM EDT DISCLAIMER : THIS IS A VISIT SUMMARY EXTRACTED FROM THE [facility] CHART. IT IS NOT A COPY OF THE [facility] PROGRESS NOTE. VIV
== END ==
LOC: M TMPAIN 13:00 → M PAIN 13:00
PROVIDERS: ATTEND Nurse Practitioner Family
DX: M47.27 Other spondylosis with radiculopathy, lumbosacral region (principal); Z79.891 Long term (current) use of opiate analgesic; Z79.899 Other long term (current) drug therapy; Z88.5 Allergy status to narcotic agent; Z91.018 Allergy to other foods; Z91.030 Bee allergy status; Z91.040 Latex allergy status; Z91.048 Other nonmedicinal substance allergy status; Z98.84 Bariatric surgery status

== ENCOUNTER → 2020-01-29 | Outpatient (CLI) | payer OTHER ==
--- NOTE | 2020-01-31 01:48 | ECWPNPC ---
PATIENT NAME: ALEJANDRINA VÁZQUEZ : 1965 GENDER: FEMALE VISIT DATE: 01/29/2020 DISCHARGE DATE: 01/29/20 0847 VISIT LOCKED DATE TIME: PHYSICIAN: LAURA KILLIAN RESOURCE: LAURA KILLIAN REASON FOR APPOINTMENT 1. LBP/MED MGMNT; [phone] HISTORY OF PRESENT ILLNESS GENERAL: PATIENT IS AGREEABLE TO TELEMED VISIT VIA ZOOM. HAD DORSAL COLUMN STIMULATOR BATTERY CHANGED 1 WEEK AGO. FEELS SHE IS DOING WELL. FEELS SHE NEEDS ADJUSTMENT WHICH SHE WILL BE IN CONTACT WITH KEI FROM [facility]. HAVING SOME INCISIONAL DISCOMFORT, WHICH SHE IS USING TYLENOL WITH RELIEF. DISCUSSED MEDICATION AND TREATMENT PLAN. -. FALL RISK SCREENING: SCREENING :ONE FALL WITH INJURY IN THE PAST YEAR PAIN SCREENING: PATIENT HAS A COMPLAINT OF ACUTE OR CHRONIC PAIN :YES 01/29/20 INTENSITY OF PAIN (SCALE OF 1 TO 10):2 WHAT DOES YOUR PAIN FEEL LIKE:ACHING, BURNING, CONTINOUS, SHARP, STABBING, THROBBING, SHOOTING PAIN IS INCREASED BY: NOTHING PAIN IS DECREASED BY: NOTHING NURSING NOTE: -. PAIN CENTER INTAKE QUESTIONS: DO YOU HAVE A HISTORY OF MRSA? :NO DO YOU TAKE A BLOOD THINNERS? :NO DO YOU HAVE ANY BLEEDING DISORDERS? :NO ANY NEW NUMBNESS OR WEAKNESS IN YOUR LEGS OR ARMS? :NO ANY PACEMAKER,DEFIBRILLATOR, OR DORSAL COLUMN STIMULATOR? :YES DCS DO YOU HAVE ANY RASHES OR OPEN SORES? :NO ARE YOU ALLERGIC TO IV DYE? :NO ARE YOU DIABETIC? :NO ANY NEW PROBLEMS WITH YOUR MEDICATIONS? :NO HAVE YOU RECEIVED A VACCINE IN THE PAST 30 DAYS? :NO DO YOU PLAN TO RECEIVE A VACCINE IN THE NEXT 21 DAYS? :NO DO YOU NEED ANY PRESCRIPTION? :YES TIZANIDINE DO YOU TAKE ANY IMMUNOSUPPRESSIVE MEDICATIONS? :NO CURRENT MEDICATIONS TAKING BIOTIN 80243 MCG TABLET DISINTEGRATING WITH KERATIN 1 TABLET ORALLY DAILY TAKING CALCIUM CITRATE 250 MG TABLET 4 TABLETS ORALLY 2 TABS AT LUNCH AND 2 TABS AT DINNER TAKING CICLOPIROX 0.77 % GEL 1 APPLICATION TO AFFECTED AREA EXTERNALLY NEEDED TO AFFECTED AREA TAKING CLOBETASOL PROPIONATE 0.05 % CREAM 1 APPLICATION TO AFFECTED AREA EXTERNALLY FINGERS ARMS TWICE A DAY NEEDED FOR FLARE-UPS TAKING DESONIDE 0.05 % CREAM 1 APPLICATION TO AFFECTED AREA EXTERNALLY TWICE A DAY TO SCALP AND FACE PINK FLAKY RASH TAKING EPIPEN 1 MG/ML DEVICE DIRECTED INTRAMUSCULAR NEEDED TAKING FOLIC ACID 800 MCG TABLET PART OF MULTI ORALLY ONCE A DAY TAKING LEVOTHYROXINE SODIUM 50 MCG TABLET 1 TABLET ON AN EMPTY STOMACH IN THE MORNING ORALLY ONCE A DAY TAKING MULTIVITAL [facility] - TABLET 2 CAP ORALLY ONCE DAILY TAKING PROTOPIC 0.03 % OINTMENT 1 APPLICATION TO AFFECTED AREA EXTERNALLY FINGERS ARMS TWICE A DAY PRN TAKING TRAMADOL HCL 50 MG TABLET 1 TABLET NEEDED ORALLY Q4-6HR PRN PAIN MDD6 TAKING TYLENOL 8 HOUR 650 MG TABLET EXTENDED RELEASE 2 TABLETS NEEDED ORALLY EVERY 8 HRS TAKING VITAMIN B12 500 MCG TABLET ORALLY ONCE A DAY TAKING VITAMIN D 2000 UNIT TABLET 1 CAPSULE ORALLY ONCE A DAY TAKING HYDROXYZINE HCL 25 MG TABLET 1 TABLET NEEDED ORALLY EVERY 8 HRS TAKING HYDROCODONE-ACETAMINOPHEN 10-325 MG TABLET 1 TABLET NEEDED ORALLY EVERY 8 HRS, MDD 3 TAKING GABAPENTIN 300 MG CAPSULE 1 CAPSULE ORALLY FOUR TIMES DAILY FOR PAIN MDD4 TAKING TIZANIDINE HCL 4 MG TABLET 1 TABLET NEEDED ORALLY QHS MAY REPEAT IN 4 HRS IF NEEDED NOT-TAKING ATARAX 25 MG TABLET DIRECTED PRN ITCH ORAL QHS TAKE 1 PRN ITCH EVERY OTHER DAY NOT-TAKING BACLOFEN 5 MG TABLET DIRECTED ORALLY FOUR TIMES DAILY NOT-TAKING HYDROCODONE-ACETAMINOPHEN 5-325 MG TABLET 1 TABLET NEEDED ORALLY FOR PAIN Q8H PRN FOR PAIN MDD3 NOT-TAKING CLARITIN 10 MG TABLET 1 TABLET ORALLY ONCE A DAY NOT-TAKING DIFLUCAN 200 MG TABLET 1 TABLET ORALLY WEEKLY BY MOUTH NOT-TAKING EUCRISA 2 % OINTMENT 1 APPLICATION TO AFFECTED AREA EXTERNALLY TWICE A DAY NOT-TAKING METROGEL 1 % GEL 1 APPLICATION TO AFFECTED AREA EXTERNALLY FACE ONCE A DAY PRN NOT-TAKING NORCO 5-325 MG TABLET 1 TABLET NEEDED ORALLY Q8HR PRN SEVERE PAIN MDD2 #45 TAB SHOULD LAST 30 DAYS NOT-TAKING HYDROCODONE-ACETAMINOPHEN 10-325 MG TABLET 1 TABLET NEEDED ORALLY Q8H PRN MDD3 NOT-TAKING HYDROXYZINE HCL 25 MG TABLET 1 TABLET NEEDED ORALLY DAILY MEDICATION LIST REVIEWED AND RECONCILED WITH THE PATIENT PAST MEDICAL HISTORY ASTHMA (INACTIVE SINCE CHILDHOOD) ATOPIC DERMATITIS BACK PAIN ALLERGIC RHINITIS, CAUSE UNSPECIFIED OBESITY, UNSPECIFIED UNSPECIFIED SINUSITIS (CHRONIC) UNSPECIFIED VITAMIN D 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 ALLERGY HEART MURMUR DIET CONTROLLED DIABETES TYPE 2 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 ALLERGIES CODEINE PHOSPHATE (FOR ALLERGIES USE ONLY): HIVES - ALLERGY ALMONDS, PECANS, BRAZIL NUTS: ANAPHYLAXIS - ALLERGY PEACHES AND PARESH CHERRIES: ANGIOEDEMA - ALLERGY BEE STINGS: SWELLING AT STING SITE - ALLERGY WOOL: HIVES - ALLERGY LATEX (FOR ALLERGY USE ONLY): RASH - ALLERGY HIBICLENS: ITCHING - ALLERGY SURGICAL HISTORY GASTRIC BYPASS 05/2015 LAMINECTOMY L5/S1 05/2014 HYSTERETOMY 08/1997 OOPHORECTOMY RIGHT 02/1997 BREAST REDUCTION 08/2000 DORSAL COLUMN STIMULATOR 07/02/2017 DCS BATTERY REPLACED 12/2019 FAMILY HISTORY FATHER: 68 YRS, COPD, DIAGNOSED WITH OTHER SPECIFIED CONDITIONS INFLUENCING HEALTH STATUS MOTHER: ALIVE, TESTED (+) FOT TB DUE TO EXPOSURE, DOESN'T HAVE MATERNAL GRAND MOTHER: DIABETES TYPE I, DIABETES 1 SON(S) , 2 DAUGHTER(S) - HEALTHY. DENIES FAMILY HISTORY OF SKIN CANCER. SOCIAL HISTORY GENERAL: TOBACCO USE ARE YOU A:NONSMOKER LATEX QUESTIONNAIRE LATEX ALLERGY : HAVE YOU EVER DEVELOPED ANY TYPE OF REACTION AFTER HANDLING LATEX PRODUCTS SUCH RUBBER GLOVES, CONDOMS, DIAPHRAGMS, BALLOONS, SOCKS, OR UNDERWEAR?YES LATEX ALLERGY : HAVE YOU EVER DEVELOPED ANY TYPE OF REACTION DURING OR AFTER DENTAL APPOINTMENT, VAGINAL/RECTAL EXAMINATION, SURGICAL PROCEDURE, OR ANY OTHER EXPOSURE?NO - PLEASE INDICATE :RUBBER GLOVES DATE ASKED : 11/05/2019 PATIENT WITH LATEX ALLERGY LATEX RISK : HAVE YOU EVER HAD ANY DIFFICULTY BREATHING OR HIVES AFTER EATING OR HANDLING ANY FRUITS, OR VEGETABLES; SUCH KIWI, BANANAS, STONE FRUITS, OR CHESTNUTSNO LATEX RISK : DO YOU HAVE A PREVIOUS PERSONAL HISTORY OF MORE THAN NINE SURGERIES, SPINA BIFIDA, OR REPEATED CATHERIZATIONS? NO LATEX RISK : ARE YOU FREQUENTLY EXPOSED TO LATEX PRODUCTS IN YOUR OCCUPATION?NO LUNG CANCER SCREENING SMOKING STATUS:NON SMOKER ALCOHOL SCREENING DID YOU HAVE A DRINK CONTAINING ALCOHOL IN THE PAST YEAR?YES HOW MANY DRINKS DID YOU HAVE ON A TYPICAL DAY WHEN YOU WERE DRINKING IN THE PAST YEAR?1 OR 2 (0 POINTS) HOW OFTEN DID YOU HAVE A DRINK CONTAINING ALCOHOL IN THE PAST YEAR?MONTHLY OR LESS (1 POINT) POINTS1 INTERPRETATIONNEGATIVE RECREATIONAL DRUG USE DRUG USE?NO CAFFEINE CAFFEINE USE?YES HOW OFTEN AND HOW MUCH? 1-2 CUPS COFFEE/DAY HIV / HEP-C SCREENING HIV TEST OFFERED TO PATIENT:YES DATE OFFERED:11/05/2019 TEST ACCEPTED:NO HEP-C TEST OFFERED TO PATIENT:YES DATE OFFERED:11/05/2019 REASON:PATIENT DECLINED TEST ACCEPTED:NO REASON:PATIENT DECLINED BROCHURE PROVIDED TO PATIENTNO DRUZE [id number] NONE LANGUAGE LANGUAGES SPOKEN:CZECH EDUCATION LEVEL OF EDUCATION:NOT FINISHED COLLEGE LEARNING BARRIERS / SPECIAL NEEDS CHANGE FROM LAST VISIT?NO BARRIERS TO LEARNING?NO HEARING IMPAIRED?NO VISION IMPAIRED?YES COGNITIVELY IMPAIRED?NO :CORRECTIVE LENSES READINESS TO LEARN?YES LEARNING PREFERENCES?YES :BOOKLETS, HANDOUTS LEARNING CAPABILITIES PRESENT?YES EMOTIONAL BARRIERS?NO SPECIAL DEVICES?NO PLANT SENIOR MANAGER NEEDED?NO DOMESTIC VIOLENCE DO YOU FEEL SAFE IN YOUR ENVIRONMENT?YES 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 DIET: LOWER SUGARS, LOWER CARBS. EXERCISE: NO REGULAR EXERCISE. MARITAL STATUS: . OTHERS AT HOME: SPOUSE. NEW PATIENT PAIN DIARY TODAY'S VISITNOTES 12/18/2019 PATIENT DESCRIBES PAIN :ACHING, BURNING, HAVE IT ALL THE TIME, STABBING, THROBBING FROM 0-10, WHAT LEVEL IS YOUR PAIN TODAY?7 PAIN CLINIC PFS, CLERGY, PUBLIC HEALTH REFERRALS PFS REFERRAL NEEDED?NO CLERGY REFERRAL NEEDED?NO PUBLIC HEALTH REFERRAL NEEDED?NO WAS THE PROVIDER NOTIFIED OF ANY PERTINENT INFO?YES N/A HAS THE PATIENT BEEN EDUCATED REGARDING HIS/HER PLAN OF CARE?YES HAS THE PATIENT BEEN EDUCATED REGARDING PAIN, THE RISK FOR PAIN, THE IMPORTANCE OF EFFECTIVE PAIN MANAGEMENT, AND THE PAIN ASSESSMENT PROCESS?YES ADVANCE DIRECTIVE ADVANCE DIRECTIVE DISCUSSED WITH PATIENT:YES PATIENT DOES NOT HAVE ANY ADVANCED DIRECTIVES AND SHE DECLINES INFORMATION ON HCP AT THIS TIME. HOSPITALIZATION/MAJOR DIAGNOSTIC PROCEDURE HOSPITALIZATIONS RELATED TO SURGERY AND CHILDBIRTH REVIEW OF SYSTEMS CONSTITUTIONAL: ANY RECENT FEVER OR ILLNESS NO . CHILLS NO . GASTROENTEROLOGY: BOWEL INCONTINENCE NO . ANY NEW CHANGE IN BOWEL CONTROL? NO . ABDOMINAL PAIN NO . CONSTIPATION NO . GENITOURINARY: ANY NEW CHANGE IN BLADDER CONTROL? NO . IS THERE A CHANCE YOU COULD BE ? NO . URINARY INCONTINENCE NO . CARDIOLOGY: CHEST PRESSURE NO . CHEST PAIN NO . RESPIRATORY: COUGH NO . SHORTNESS OF BREATH NO . EXAMINATION GENERAL EXAMINATION: GENERALNO ACUTE DISTRESS, WELL NOURISHED AND HYDRATED. PSYCHAPPROPRIATE MOOD AND AFFECT . FACE:UNREMARKABLE. 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) TREATMENT LUMBOSACRAL SPONDYLOSIS WITH RADICULOPATHY STOP HYDROCODONE-ACETAMINOPHEN TABLET, 10-325 MG, 1 TABLET NEEDED, ORALLY, EVERY 8 HRS, MDD 3 STOP TRAMADOL HCL TABLET, 50 MG, 1 TABLET NEEDED, ORALLY, Q4-6HR PRN PAIN MDD6 CONTINUE TYLENOL 8 HOUR TABLET EXTENDED RELEASE, 650 MG, 2 TABLETS NEEDED, ORALLY, EVERY 8 HRS CONTINUE GABAPENTIN CAPSULE, 300 MG, 1 CAPSULE, ORALLY, FOUR TIMES DAILY FOR PAIN MDD4 DECREASE TIZANIDINE HCL TABLET, 4 MG, 1-2 TABLETS DIRECTED, ORALLY, EVERY 6 HOURS DIRECTED, 30 DAYS, 135, REFILLS 1 NOTES: PATIENT WILL CONTACT [facility] AND HAVE ADJUSTMENTS TO DORSAL COLUMN STIMULATOR MADE. SHE HAS DISCONTINUED USE OF HYDROCODONE. ADVISED TO CONTINUE USE OF TYLENOL FOR INCISIONAL DISCOMFORT. RECOMMEND REDUCING GABAPENTIN TO 4 TIMES DAILY. RECOMMEND SLOWLY DECREASING TIZANIDINE 4 MG TO ONE TABLET 3 TIMES A DAY. FOLLOW-UP IN CLINIC IN 6-8 WEEKS. TOTAL TIME SPENT DURING TELEMED VISIT WAS APPROXIMATELY 12 MINUTES. DISPOSITION & COMMUNICATION FOLLOW UP 6-8 WEEKS (REASON: LOW BACK PAIN, LOWER EXTREMITY PAIN, DORSAL COLUMN STIMULATOR, MED MANAGEMENT.) ELECTRONICALLY SIGNED BY LYDIA BERRY ON 01/30/2020 AT 01:50 PM EDT DISCLAIMER : THIS IS A VISIT SUMMARY EXTRACTED FROM THE [facility] CHART. IT IS NOT A COPY OF THE [facility] PROGRESS NOTE. VIV
== END ==
LOC: M TMPAIN 09:15 → M PAIN 09:15
PROVIDERS: ATTEND Nurse Practitioner Family
DX: M47.27 Other spondylosis with radiculopathy, lumbosacral region (principal)

== ENCOUNTER → 2020-09-02 | Outpatient (REF) | payer OTHER ==
[2020-09-08 03:07] LABS: HSV-1 DNA Negative (Negative); HSV-2 DNA Negative (Negative)
== END ==
LOC: M SFHCWAGY 13:25
PROVIDERS: ATTEND Nurse Practitioner Family
DX: N90.89 Other specified noninflammatory disorders of vulva and perineum (principal)

== ENCOUNTER → 2020-09-27 | Outpatient (CLI) | payer BC, OTHER ==
[~2020-09-27] MED LIST changes: +GABA-282; -GABA-843
--- NOTE | 2020-09-29 00:28 | ECWPNPC ---
PATIENT NAME: ALEJANDRINA VÁZQUEZ : 1965 GENDER: FEMALE VISIT DATE: 09/27/2020 DISCHARGE DATE: 09/27/20944 VISIT LOCKED DATE TIME: PHYSICIAN: LAURA KILLIAN RESOURCE: LAURA KILLIAN REASON FOR APPOINTMENT 1. PANCREAS/NEW MED HISTORY OF PRESENT ILLNESS DEPRESSION SCREENING: PHQ-2 (2015 EDITION) LITTLE INTEREST OR PLEASURE IN DOING THINGS?NOT AT ALL FEELING DOWN, DEPRESSED, OR HOPELESS?NOT AT ALL TOTAL SCORE0 GENERAL: HERE FOR F/U OF CHRONIC LOW BACK PAIN.OVERALL DOING WELL.USING DCS WITH GOOD RESULTS.USING MEDICATION FOR PAIN VERY INFREQUENTLY.HAVING DIFFICULTY WITH LEG CRAMPING AT NIGHT DISRUPTING SLEEP.REVIEWED MEDICATION AND TREATMENT PLAN. -. FALL RISK SCREENING: SCREENING :NO FALLS REPORTED IN THE LAST YEAR PAIN SCREENING: PATIENT HAS A COMPLAINT OF ACUTE OR CHRONIC PAIN :YES LOCATION OF PAIN:LOW BACK INTENSITY OF PAIN (SCALE OF 1 TO 10):1 WHAT DOES YOUR PAIN FEEL LIKE:ACHING, BURNING, STABBING, TENDER, THROBBING, SHOOTING DURATION:CONTINOUS, CONSTANT, ALL DAY PAIN IS INCREASED BY:ACTIVITIES, PROLONGED STANDING, OTHERS PAIN IS DECREASED BY:USE OF PAIN MEDICATIONS NURSING NOTE: -. PAIN CENTER INTAKE QUESTIONS: DO YOU HAVE A HISTORY OF MRSA? :NO DO YOU TAKE A BLOOD THINNERS? :NO DO YOU HAVE ANY BLEEDING DISORDERS? :NO ANY NEW NUMBNESS OR WEAKNESS IN YOUR LEGS OR ARMS? :NO ANY PACEMAKER,DEFIBRILLATOR, OR DORSAL COLUMN STIMULATOR? :YES DCS DO YOU HAVE ANY RASHES OR OPEN SORES? :NO ARE YOU ALLERGIC TO IV DYE? :NO ARE YOU DIABETIC? :NO ANY NEW PROBLEMS WITH YOUR MEDICATIONS? :NO HAVE YOU RECEIVED A VACCINE IN THE PAST 30 DAYS? :YES IF SO WHAT VACCINE AND WHEN? COVID DO YOU PLAN TO RECEIVE A VACCINE IN THE NEXT 21 DAYS? :NO DO YOU NEED ANY PRESCRIPTION? :YES TIZANIDINE AND HALLIE DO YOU TAKE ANY IMMUNOSUPPRESSIVE MEDICATIONS? :NO CURRENT MEDICATIONS TAKING BIOTIN 48700 MCG TABLET DISINTEGRATING WITH KERATIN 1 TABLET ORALLY DAILY TAKING CALCIUM CITRATE 250 MG TABLET 4 TABLETS ORALLY 2 TABS AT LUNCH AND 2 TABS AT DINNER TAKING EPIPEN 1 MG/ML DEVICE DIRECTED INTRAMUSCULAR NEEDED TAKING FOLIC ACID 800 MCG TABLET PART OF MULTI ORALLY ONCE A DAY TAKING LEVOTHYROXINE SODIUM 50 MCG TABLET 1 TABLET ON AN EMPTY STOMACH IN THE MORNING ORALLY ONCE A DAY TAKING MULTIVITAL [place] - TABLET 2 CAP ORALLY ONCE DAILY TAKING VITAMIN B12 500 MCG TABLET ORALLY ONCE A DAY TAKING VITAMIN D 2000 UNIT TABLET 1 CAPSULE ORALLY ONCE A DAY TAKING TYLENOL 8 HOUR 650 MG TABLET EXTENDED RELEASE 2 TABLETS NEEDED ORALLY EVERY 8 HRS, NOTES: NEEDED TAKING TRAMADOL HCL 50 MG TABLET 1 TABLET NEEDED ORALLY BID PRN MDD2 TAKING DUPIXENT 300 MG/2ML SOLUTION PEN-INJECTOR DIRECTED SUBCUTANEOUS INJECT 300 MG EVERY 2 WEEK STARTING DAY 15 MAINTENANCE THERAPY TAKING HYDROXYZINE HCL 25 MG TABLET TAKE ONE TABLET BY MOUTH EVERY OTHER DAY AT BEDTIME NEEDED FOR ITCH ORAL TAKING ESTRADIOL 0.1 MG/GM CREAM 1 GM VAGINAL TWO TIMES A WEEK TAKING TEMOVATE 0.05 % OINTMENT 1 APPLICATION EXTERNALLY VULVA DIRECTED TWICE A DAY FOR 14 DAYS THEN TWICE A WEEK TAKING GABAPENTIN 300 MG CAPSULE 1 CAPSULE ORALLY FOUR TIMES DAILY FOR PAIN MDD4 TAKING TIZANIDINE HCL 4 MG TABLET 1-2 TABLETS DIRECTED ORALLY EVERY 6 HOURS DIRECTED NOT-TAKING DUPIXENT 300 MG/2ML SOLUTION PEN-INJECTOR DIRECTED SUBCUTANEOUS INJECT 600 MG DAY 1 (2 PENS) STARTER DOSE MEDICATION LIST REVIEWED AND RECONCILED WITH THE PATIENT PAST MEDICAL HISTORY ASTHMA (INACTIVE SINCE CHILDHOOD) ATOPIC DERMATITIS BACK PAIN ALLERGIC RHINITIS, CAUSE UNSPECIFIED OBESITY, UNSPECIFIED UNSPECIFIED SINUSITIS (CHRONIC) UNSPECIFIED VITAMIN D 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 ALLERGY HEART MURMUR DIET CONTROLLED DIABETES TYPE 2 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 ALLERGIES CODEINE PHOSPHATE (FOR ALLERGIES USE ONLY): HIVES - ALLERGY ALMONDS, PECANS, BRAZIL NUTS: ANAPHYLAXIS - ALLERGY PEACHES AND PARESH CHERRIES: ANGIOEDEMA - ALLERGY BEE STINGS: SWELLING AT STING SITE - ALLERGY WOOL: HIVES - ALLERGY LATEX (FOR ALLERGY USE ONLY): RASH - ALLERGY HIBICLENS: ITCHING - ALLERGY SOCIAL HISTORY GENERAL: TOBACCO USE ARE YOU A:NONSMOKER LATEX QUESTIONNAIRE LATEX ALLERGY : HAVE YOU EVER DEVELOPED ANY TYPE OF REACTION AFTER HANDLING LATEX PRODUCTS SUCH RUBBER GLOVES, CONDOMS, DIAPHRAGMS, BALLOONS, SOCKS, OR UNDERWEAR?YES - PLEASE INDICATE :RUBBER GLOVES LATEX ALLERGY : HAVE YOU EVER DEVELOPED ANY TYPE OF REACTION DURING OR AFTER DENTAL APPOINTMENT, VAGINAL/RECTAL EXAMINATION, SURGICAL PROCEDURE, OR ANY OTHER EXPOSURE?NO LATEX RISK : HAVE YOU EVER HAD ANY DIFFICULTY BREATHING OR HIVES AFTER EATING OR HANDLING ANY FRUITS, OR VEGETABLES; SUCH KIWI, BANANAS, STONE FRUITS, OR CHESTNUTSNO LATEX RISK : DO YOU HAVE A PREVIOUS PERSONAL HISTORY OF MORE THAN NINE SURGERIES, SPINA BIFIDA, OR REPEATED CATHERIZATIONS? NO LATEX RISK : ARE YOU FREQUENTLY EXPOSED TO LATEX PRODUCTS IN YOUR OCCUPATION?NO DATE ASKED : 09/27/2020 PATIENT WITH LATEX ALLERGY ALCOHOL USE: YES. LUNG CANCER SCREENING SMOKING STATUS:NON SMOKER ALCOHOL SCREENING DID YOU HAVE A DRINK CONTAINING ALCOHOL IN THE PAST YEAR?YES HOW MANY DRINKS DID YOU HAVE ON A TYPICAL DAY WHEN YOU WERE DRINKING IN THE PAST YEAR?1 OR 2 (0 POINTS) HOW OFTEN DID YOU HAVE A DRINK CONTAINING ALCOHOL IN THE PAST YEAR?MONTHLY OR LESS (1 POINT) POINTS1 INTERPRETATIONNEGATIVE RECREATIONAL DRUG USE DRUG USE?NO CAFFEINE CAFFEINE USE?YES HOW OFTEN AND HOW MUCH? 1-2 CUPS COFFEE/DAY HIV / HEP-C SCREENING HIV TEST OFFERED TO PATIENT:YES DATE OFFERED:11/05/2019 TEST ACCEPTED:NO HEP-C TEST OFFERED TO PATIENT:YES DATE OFFERED:11/05/2019 REASON:PATIENT DECLINED TEST ACCEPTED:NO REASON:PATIENT DECLINED BROCHURE PROVIDED TO PATIENTNO CATHOLIC [id number] NONE LANGUAGE LANGUAGES SPOKEN:GIBRALTARIAN EDUCATION LEVEL OF EDUCATION:NOT FINISHED COLLEGE LEARNING BARRIERS / SPECIAL NEEDS CHANGE FROM LAST VISIT?NO BARRIERS TO LEARNING?NO HEARING IMPAIRED?NO VISION IMPAIRED?YES :CORRECTIVE LENSES COGNITIVELY IMPAIRED?NO READINESS TO LEARN?YES LEARNING PREFERENCES?YES :BOOKLETS, HANDOUTS LEARNING CAPABILITIES PRESENT?YES EMOTIONAL BARRIERS?NO SPECIAL DEVICES?NO MUSICAL INSTRUMENT MAKER OR REPAIRER NEEDED?NO DOMESTIC VIOLENCE DO YOU FEEL SAFE IN YOUR ENVIRONMENT?YES OCCUPATION: [employer] F[employer]. DIET: LOWER SUGARS, LOWER CARBS. EXERCISE: NO REGULAR EXERCISE. MARITAL STATUS: . OTHERS AT HOME: SPOUSE. TODAY'S VISITNOTES 12/18/2019 PATIENT DESCRIBES PAIN :ACHING, BURNING, HAVE IT ALL THE TIME, STABBING, THROBBING FROM 0-10, WHAT LEVEL IS YOUR PAIN TODAY?7 - PFS REFERRAL NEEDED?NO CLERGY REFERRAL NEEDED?NO PUBLIC HEALTH REFERRAL NEEDED?NO WAS THE PROVIDER NOTIFIED OF ANY PERTINENT INFO?YES N/A HAS THE PATIENT BEEN EDUCATED REGARDING HIS/HER PLAN OF CARE?YES HAS THE PATIENT BEEN EDUCATED REGARDING PAIN, THE RISK FOR PAIN, THE IMPORTANCE OF EFFECTIVE PAIN MANAGEMENT, AND THE PAIN ASSESSMENT PROCESS?YES ADVANCE DIRECTIVE ADVANCE DIRECTIVE DISCUSSED WITH PATIENT:YES PATIENT DOES NOT HAVE ANY ADVANCED DIRECTIVES AND SHE DECLINES INFORMATION ON HCP AT THIS TIME. REVIEW OF SYSTEMS CONSTITUTIONAL: ANY RECENT FEVER NO . CHILLS NO . WEIGHT CHANGE OF UNKNOWN REASONS NO . GASTROENTEROLOGY: NEW UNEXPLAINABLE CHANGES IN BOWEL CONTROL NO . CONSTIPATION NO . GENITOURINARY: ANY NEW CHANGE IN BLADDER CONTROL? NO . NEUROLOGY: NEW ONSET DIZZINESS OR NEUROLOGICAL CHANGES NOT MENTIONED NO . NEW NUMBNESS OR PAIN PATTERNS NOT MENTIONED AND PERTINENT TO TODAY'S VISIT NO . CARDIOLOGY: NEW CHEST PRESSURE NO . NEW CHEST PAIN NO . RESPIRATORY: UNEXPLAINABLE COUGH NO . NEW SHORTNESS OF BREATH NO . VITAL SIGNS WT 134 LBS, HT 64 IN, BMI 23.00 INDEX, BP 140/74 MM HG, HR 59 /MIN, RR 18 /MIN, TEMP 96.9 F, OXYGEN SAT % 100%RAINER HOBSON NOFITY PROVIDER ABOUT BP RAINER HOBSON. EXAMINATION GENERAL EXAMINATION: GENERALAWAKE,ALERT ,PLEASANT . PSYCHAFFECT NORMAL . LUNGS:LUNG RAPP ARE CLEAR TO AUSCULTATION BILATERALLY. GOOD MOVEMENT OF AIR . HEART:S1, S2 IN A REGULAR RATE AND RHYTHM. NO SIGNIFICANT MURMURS, RUBS OR GALLOPS NOTED . ASSESSMENTS RESTLESS LEG SYNDROME - G25.81 (PRIMARY) TREATMENT RESTLESS LEG SYNDROME STOP TRAMADOL HCL TABLET, 50 MG, 1 TABLET NEEDED, ORALLY, BID PRN MDD2 REFILL GABAPENTIN CAPSULE, 300 MG, 1 CAPSULE, ORALLY, FOUR TIMES DAILY FOR PAIN MDD4, 30 DAYS, 120, REFILLS 2 REFILL TIZANIDINE HCL TABLET, 4 MG, 1-2 TABLETS DIRECTED, ORALLY, EVERY 6 HOURS DIRECTED, 30 DAYS, 120, REFILLS 2 START ROPINIROLE HCL TABLET, 0.25 MG, 1 TO 2 TAB, ORALLY, BEFORE BEDTIME, 30 DAY(S), 60, REFILLS 2 PROCEDURE CODES FA211 ESTABILISHED PATIENT [facility] CHARGE DISPOSITION & COMMUNICATION FOLLOW UP 4 MONTHS (REASON: MED MGMNT,NEW MED ROPINEROLE) ELECTRONICALLY SIGNED BY LYDIA BERRY ON 09/28/2020 AT 06:34 PM EST DISCLAIMER : THIS IS A VISIT SUMMARY EXTRACTED FROM THE [employer] CHART. IT IS NOT A COPY OF THE [employer] PROGRESS NOTE. VIV
== END ==
LOC: M PAIN 09:00
PROVIDERS: ATTEND Nurse Practitioner Family
DX: G25.81 Restless legs syndrome (principal); E55.9 Vitamin D deficiency, unspecified; Z79.891 Long term (current) use of opiate analgesic; Z79.899 Other long term (current) drug therapy; Z88.5 Allergy status to narcotic agent; Z91.018 Allergy to other foods; Z91.030 Bee allergy status; Z91.040 Latex allergy status; Z88.8 Allergy status to other drugs, medicaments and biological substances

== ENCOUNTER → 2020-11-08 | Outpatient (CLI) | payer BC, OTHER ==
--- NOTE | 2020-11-08 16:26 | REPMRS ---
Patient History The patient states she had a clinical breast exam in 10/2020. No known family history of cancer. Reductions of both breasts, 2002. No Hormone Replacement Therapy Digital Woman Screen Mammo: November 08, 2020 - Exam #: [id number] Bilateral CC and MLO view(s) were taken. Technologist: Polly Medina, Technologist Prior study comparison: November 05, 2019, bilateral digital woman screen [place] [facility] October 15, 2018, bilateral digital woman screen [place] [facility] October 11, 2017, digital woman screen mammo performed at [facility]. FINDINGS: The breast tissue is heterogeneously dense. This may lower the sensitivity of mammography. The Volpara volumetric breast density category is: C. There is a moderate amount of heterogeneously dense fibroglandular tissue which is fairly symmetric. There is no interval development of dominant mass, architectural distortion, or grouped microcalcification typical of malignancy. There has been no change in the appearance of the mammogram from the prior studies. 3-D tomosynthesis shows no additional findings. Assessment: BI-RADS/ACR category 1 mammogram. Negative Mammogram. Recommendation Routine screening mammogram of both breasts in 1 year (for women over age 40). This patient's [facility] Lifetime Breast Cancer RIsk is estimated at 7.2 %. This mammogram was interpreted with the aid of an FDA-approved computer-aided dectection system. Electronically Signed By: Gurpreet Moncada MD 11/08/20 1312
== END ==
LOC: M WHC 14:49
PROVIDERS: ATTEND Nurse Practitioner Family
DX: Z12.31 Encounter for screening mammogram for malignant neoplasm of breast (principal); Z98.890 Other specified postprocedural states

== ENCOUNTER → 2020-12-31 | Outpatient (CLI) | payer BC, OTHER ==
[~2020-12-31] MED LIST changes: +GABA-283 PO; -GABA-845 PO
--- NOTE | 2021-01-04 15:22 | ECWPNPC ---
PATIENT NAME: ALEJANDRINA VÁZQUEZ : 1965 GENDER: FEMALE VISIT DATE: 12/31/2020 DISCHARGE DATE: 12/31/20937 VISIT LOCKED DATE TIME: PHYSICIAN: LAURA KILLIAN RESOURCE: LAURA KILLAIN REASON FOR APPOINTMENT 1. MED MGMNT,NEW MED ROPINEROLE HISTORY OF PRESENT ILLNESS GENERAL: HERE FOR FOLLOW-UP OF CHRONIC LOW BACK PAIN. STATES LOW BACK PAIN HAS BEEN MUCH BETTER LATELY WITH REPLACEMENT OF DORSAL COLUMN STIMULATOR BATTERY A FEW MONTHS AGO. CONTINUES TO USE MEDICATION AT NIGHT FOR LOW BACK PAIN AND MUSCLE SPASMS IN HER LEGS . - -. FALL RISK SCREENING: SCREENING : NO FALLS REPORTED IN THE LAST YEAR. PAIN SCREENING: PATIENT HAS A COMPLAINT OF ACUTE OR CHRONIC PAIN :YES LOCATION OF PAIN:LOW BACK INTENSITY OF PAIN (SCALE OF 1 TO 10):0 WHAT DOES YOUR PAIN FEEL LIKE:ACHING, BURNING, STABBING, TENDER, SHOOTING DURATION:CONTINOUS, CONSTANT, ALL DAY PAIN IS INCREASED BY:OTHERS THE PAIN JUST DID NOT GO AWAY PAIN IS DECREASED BY:USE OF PAIN MEDICATIONS NURSING NOTE: -. PAIN CENTER INTAKE QUESTIONS: DO YOU HAVE A HISTORY OF MRSA? :NO DO YOU TAKE A BLOOD THINNERS? :NO DO YOU HAVE ANY BLEEDING DISORDERS? :NO ANY NEW NUMBNESS OR WEAKNESS IN YOUR LEGS OR ARMS? :NO ANY PACEMAKER,DEFIBRILLATOR, OR DORSAL COLUMN STIMULATOR? :YES DCS DO YOU HAVE ANY RASHES OR OPEN SORES? :NO ARE YOU ALLERGIC TO IV DYE? :NO ARE YOU DIABETIC? :NO ANY NEW PROBLEMS WITH YOUR MEDICATIONS? :NO HAVE YOU RECEIVED A VACCINE IN THE PAST 30 DAYS? :NO DO YOU PLAN TO RECEIVE A VACCINE IN THE NEXT 21 DAYS? :NO DO YOU NEED ANY PRESCRIPTION? :YES TIZANIDINE AND HALLIE, ROPINIROLE DO YOU TAKE ANY IMMUNOSUPPRESSIVE MEDICATIONS? :NO CURRENT MEDICATIONS TAKING BIOTIN 73467 MCG TABLET DISINTEGRATING WITH KERATIN 1 TABLET ORALLY DAILY TAKING CALCIUM CITRATE 250 MG TABLET 4 TABLETS ORALLY 2 TABS AT LUNCH AND 2 TABS AT DINNER TAKING EPIPEN 1 MG/ML DEVICE DIRECTED INTRAMUSCULAR NEEDED TAKING FOLIC ACID 800 MCG TABLET PART OF MULTI ORALLY ONCE A DAY TAKING LEVOTHYROXINE SODIUM 50 MCG TABLET 1 TABLET ON AN EMPTY STOMACH IN THE MORNING ORALLY ONCE A DAY TAKING MULTIVITAL [place] - TABLET 2 CAP ORALLY ONCE DAILY TAKING VITAMIN B12 500 MCG TABLET ORALLY ONCE A DAY TAKING VITAMIN D 2000 UNIT TABLET 1 CAPSULE ORALLY ONCE A DAY TAKING TYLENOL 8 HOUR 650 MG TABLET EXTENDED RELEASE 2 TABLETS NEEDED ORALLY EVERY 8 HRS, NOTES: NEEDED TAKING HYDROXYZINE HCL 25 MG TABLET TAKE ONE TABLET BY MOUTH EVERY OTHER DAY AT BEDTIME NEEDED FOR ITCH ORAL TAKING GABAPENTIN 300 MG CAPSULE 1 CAPSULE ORALLY FOUR TIMES DAILY FOR PAIN MDD4 TAKING TIZANIDINE HCL 4 MG TABLET 1-2 TABLETS DIRECTED ORALLY EVERY 6 HOURS DIRECTED TAKING ROPINIROLE HCL 0.25 MG TABLET 1 TO 2 TAB ORALLY BEFORE BEDTIME TAKING ESTRADIOL 0.1 MG/GM CREAM 1 GM VAGINAL TWO TIMES A WEEK TAKING DUPIXENT 300 MG/2ML SOLUTION PEN-INJECTOR INJECT 1 PEN UNDER THE SKIN EVERY OTHER WEEK NOT-TAKING TEMOVATE 0.05 % OINTMENT 1 APPLICATION EXTERNALLY VULVA DIRECTED TWICE A DAY FOR 14 DAYS THEN TWICE A WEEK MEDICATION LIST REVIEWED AND RECONCILED WITH THE PATIENT PAST MEDICAL HISTORY ASTHMA (INACTIVE SINCE CHILDHOOD) ATOPIC DERMATITIS BACK PAIN ALLERGIC RHINITIS, CAUSE UNSPECIFIED OBESITY, UNSPECIFIED UNSPECIFIED SINUSITIS (CHRONIC) UNSPECIFIED VITAMIN D 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 ALLERGY HEART MURMUR DIET CONTROLLED DIABETES TYPE 2 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 ALLERGIES CODEINE PHOSPHATE (FOR ALLERGIES USE ONLY): HIVES - ALLERGY ALMONDS, PECANS, BRAZIL NUTS: ANAPHYLAXIS - ALLERGY PEACHES AND PARESH CHERRIES: ANGIOEDEMA - ALLERGY BEE STINGS: SWELLING AT STING SITE - ALLERGY WOOL: HIVES - ALLERGY LATEX (FOR ALLERGY USE ONLY): RASH - ALLERGY HIBICLENS: ITCHING - ALLERGY SOCIAL HISTORY GENERAL: TOBACCO USE ARE YOU A:NONSMOKER LATEX QUESTIONNAIRE LATEX ALLERGY : HAVE YOU EVER DEVELOPED ANY TYPE OF REACTION AFTER HANDLING LATEX PRODUCTS SUCH RUBBER GLOVES, CONDOMS, DIAPHRAGMS, BALLOONS, SOCKS, OR UNDERWEAR?YES - PLEASE INDICATE :RUBBER GLOVES LATEX ALLERGY : HAVE YOU EVER DEVELOPED ANY TYPE OF REACTION DURING OR AFTER DENTAL APPOINTMENT, VAGINAL/RECTAL EXAMINATION, SURGICAL PROCEDURE, OR ANY OTHER EXPOSURE?NO LATEX RISK : HAVE YOU EVER HAD ANY DIFFICULTY BREATHING OR HIVES AFTER EATING OR HANDLING ANY FRUITS, OR VEGETABLES; SUCH KIWI, BANANAS, STONE FRUITS, OR CHESTNUTSNO LATEX RISK : DO YOU HAVE A PREVIOUS PERSONAL HISTORY OF MORE THAN NINE SURGERIES, SPINA BIFIDA, OR REPEATED CATHERIZATIONS? NO LATEX RISK : ARE YOU FREQUENTLY EXPOSED TO LATEX PRODUCTS IN YOUR OCCUPATION?NO DATE ASKED : 12/31/2020 PATIENT WITH LATEX ALLERGY ALCOHOL USE: YES. LUNG CANCER SCREENING SMOKING STATUS:NON SMOKER ALCOHOL SCREENING DID YOU HAVE A DRINK CONTAINING ALCOHOL IN THE PAST YEAR?YES HOW MANY DRINKS DID YOU HAVE ON A TYPICAL DAY WHEN YOU WERE DRINKING IN THE PAST YEAR?1 OR 2 (0 POINTS) HOW OFTEN DID YOU HAVE A DRINK CONTAINING ALCOHOL IN THE PAST YEAR?MONTHLY OR LESS (1 POINT) POINTS1 INTERPRETATIONNEGATIVE RECREATIONAL DRUG USE DRUG USE?NO CAFFEINE CAFFEINE USE?YES HOW OFTEN AND HOW MUCH? 1-2 CUPS COFFEE/DAY HIV / HEP-C SCREENING HIV TEST OFFERED TO PATIENT:YES DATE OFFERED:11/05/2019 TEST ACCEPTED:NO HEP-C TEST OFFERED TO PATIENT:YES DATE OFFERED:11/05/2019 REASON:PATIENT DECLINED TEST ACCEPTED:NO REASON:PATIENT DECLINED BROCHURE PROVIDED TO PATIENTNO NONDENOMINATIONAL [id number] NONE LANGUAGE LANGUAGES SPOKEN:JORDANIAN EDUCATION LEVEL OF EDUCATION:NOT FINISHED COLLEGE LEARNING BARRIERS / SPECIAL NEEDS CHANGE FROM LAST VISIT?NO BARRIERS TO LEARNING?NO HEARING IMPAIRED?NO VISION IMPAIRED?YES :CORRECTIVE LENSES COGNITIVELY IMPAIRED?NO READINESS TO LEARN?YES LEARNING PREFERENCES?YES :BOOKLETS, HANDOUTS LEARNING CAPABILITIES PRESENT?YES EMOTIONAL BARRIERS?NO SPECIAL DEVICES?NO INFORMATION TECHNOLOGY INTERNSHIP NEEDED?NO DOMESTIC VIOLENCE DO YOU FEEL SAFE IN YOUR ENVIRONMENT?YES OCCUPATION: [employer]. DIET: LOWER SUGARS, LOWER CARBS. EXERCISE: NO REGULAR EXERCISE. MARITAL STATUS: . OTHERS AT HOME: SPOUSE. TODAY'S VISITNOTES 12/18/2019 PATIENT DESCRIBES PAIN :ACHING, BURNING, HAVE IT ALL THE TIME, STABBING, THROBBING FROM 0-10, WHAT LEVEL IS YOUR PAIN TODAY?7 - PFS REFERRAL NEEDED?NO CLERGY REFERRAL NEEDED?NO PUBLIC HEALTH REFERRAL NEEDED?NO WAS THE PROVIDER NOTIFIED OF ANY PERTINENT INFO?YES N/A HAS THE PATIENT BEEN EDUCATED REGARDING HIS/HER PLAN OF CARE?YES HAS THE PATIENT BEEN EDUCATED REGARDING PAIN, THE RISK FOR PAIN, THE IMPORTANCE OF EFFECTIVE PAIN MANAGEMENT, AND THE PAIN ASSESSMENT PROCESS?YES ADVANCE DIRECTIVE ADVANCE DIRECTIVE DISCUSSED WITH PATIENT:YES PATIENT DOES NOT HAVE ANY ADVANCED DIRECTIVES AND SHE DECLINES INFORMATION ON HCP AT THIS TIME. REVIEW OF SYSTEMS CONSTITUTIONAL: ANY RECENT FEVER NO . CHILLS NO . WEIGHT CHANGE OF UNKNOWN REASONS NO . GASTROENTEROLOGY: NEW UNEXPLAINABLE CHANGES IN BOWEL CONTROL NO . CONSTIPATION NO . GENITOURINARY: ANY NEW CHANGE IN BLADDER CONTROL? NO . NEUROLOGY: NEW ONSET DIZZINESS OR NEUROLOGICAL CHANGES NOT MENTIONED NO . NEW NUMBNESS OR PAIN PATTERNS NOT MENTIONED AND PERTINENT TO TODAY'S VISIT NO . CARDIOLOGY: NEW CHEST PRESSURE NO . PATIENT DENIES NO . RESPIRATORY: UNEXPLAINABLE COUGH NO . NEW SHORTNESS OF BREATH NO . VITAL SIGNS WT 131.8 LBS, HT 64 IN, BMI 22.62 INDEX, BP 141/81 MM HG, HR 56 /MIN, RR 18 /MIN, TEMP 97.5 F, OXYGEN SAT % 97%, SAFE IN ENV? (Y/N) YES, NA INITIALS TX 09:17T.DELMA HOBSON. EXAMINATION GENERAL EXAMINATION: GENERALAWAKE,ALERT ,PLEASANT . PSYCHAFFECT NORMAL . LUNGS:LUNG RAPP ARE CLEAR TO AUSCULTATION BILATERALLY. GOOD MOVEMENT OF AIR . HEART:S1, S2 IN A REGULAR RATE AND RHYTHM. NO SIGNIFICANT MURMURS, RUBS OR GALLOPS NOTED . 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 TREATMENT RESTLESS LEG SYNDROME REFILL GABAPENTIN CAPSULE, 300 MG, 1 CAPSULE, ORALLY, FOUR TIMES DAILY FOR PAIN MDD4, 30 DAYS, 120, REFILLS 5 REFILL TIZANIDINE HCL TABLET, 4 MG, 1-2 TABLETS DIRECTED, ORALLY, EVERY 6 HOURS DIRECTED, 30 DAYS, 120, REFILLS 5 REFILL ROPINIROLE HCL TABLET, 0.25 MG, 1 TO 2 TAB, ORALLY, BEFORE BEDTIME, 30 DAY(S), 60, REFILLS 5 PROCEDURE CODES FA211 ESTABILISHED PATIENT [facility] CHARGE DISPOSITION & COMMUNICATION FOLLOW UP 6 MONTHS (REASON: MED MGMNT) ELECTRONICALLY SIGNED BY LYDIA BERRY ON 01/03/2021 AT 08:42 PM EDT DISCLAIMER : THIS IS A VISIT SUMMARY EXTRACTED FROM THE [employer] CHART. IT IS NOT A COPY OF THE [employer] PROGRESS NOTE. VIV
== END ==
LOC: M PAIN 09:00
PROVIDERS: ATTEND Nurse Practitioner Family
DX: M47.27 Other spondylosis with radiculopathy, lumbosacral region (principal); G89.29 Other chronic pain; G25.81 Restless legs syndrome; E55.9 Vitamin D deficiency, unspecified; Z96.89 Presence of other specified functional implants; Z88.5 Allergy status to narcotic agent; Z88.8 Allergy status to other drugs, medicaments and biological substances; Z91.018 Allergy to other foods; Z91.030 Bee allergy status; Z91.09 Other allergy status, other than to drugs and biological substances; Z79.899 Other long term (current) drug therapy

== ENCOUNTER → 2021-07-06 | Outpatient (CLI) | payer BC, OTHER | LOC: M PAIN 09:30 | PROVIDERS: ATTEND Anesthesiology | DX: M96.1 Postlaminectomy syndrome, not elsewhere classified (principal); E55.9 Vitamin D deficiency, unspecified; Z96.89 Presence of other specified functional implants; Z88.5 Allergy status to narcotic agent; Z88.8 Allergy status to other drugs, medicaments and biological substances; Z91.018 Allergy to other foods; Z91.030 Bee allergy status; Z91.040 Latex allergy status; Z79.899 Other long term (current) drug therapy ==

== ENCOUNTER → 2021-08-08 | Outpatient (REF) | payer BC, OTHER | LOC: M LAB REF 20:33 | PROVIDERS: ATTEND Physician Assistant | DX: J06.9 Acute upper respiratory infection, unspecified (principal) ==

== ENCOUNTER → 2021-10-11 | Outpatient (CLI) | payer BC, OTHER ==
[~2021-10-11] MED LIST changes: +ISOVUE-370 76% 100ML VIAL As Ordered ONE
== END ==
LOC: M RAD 14:30
PROVIDERS: ATTEND Physician Assistant Surgical
DX: S92.255D Nondisplaced fracture of navicular [scaphoid] of left foot, subsequent encounter for fracture with routine healing (principal); M79.605 Pain in left leg

== ENCOUNTER → 2021-12-21 | Outpatient (CLI) | payer BC, OTHER ==
[~2021-12-21] MED LIST changes: -ISOVUE-370 76% 100ML VIAL As Ordered ONE
== END ==
LOC: M WHC 13:26
PROVIDERS: ATTEND Advanced Practice Midwife
DX: Z12.31 Encounter for screening mammogram for malignant neoplasm of breast (principal); N60.01 Solitary cyst of right breast; N60.02 Solitary cyst of left breast

== ENCOUNTER → 2023-01-19 | Outpatient (CLI) | payer BC, OTHER | LOC: M WHC 07:01 | PROVIDERS: ATTEND Nurse Practitioner Adult Health | DX: Z12.31 Encounter for screening mammogram for malignant neoplasm of breast (principal) ==

== ENCOUNTER 2023-10-23 13:23 | Observation (INO) | payer BC, OTHER ==
[~2023-10-23] VITALS: Ht 162.6 cm; Wt 60.7 kg
[~2023-10-23 13:23] MED LIST changes: -BIOT50004 PO; +BIOT5CAP8 PO; -GABA-282; +GABA-282 PO; -GABA-283 PO; +GABA-284 PO
[2023-10-23 15:10] LABS: CK-MB VALUE MASS < 1.0 NG/ML (<3.6)
[2023-10-23 15:12] LABS: BLOOD UREA NITROGEN 6 MG/DL (9-23); CALCIUM LEVEL 8.8 MG/DL (8.3-10.6); CARBON DIOXIDE LEVEL 24 MMOL/L (20-31); CHLORIDE LEVEL 100 MMOL/L (98-107); CREATININE FOR GFR 0.63 MG/DL (0.55-1.30); GLOMERULAR FILTRATION RATE > 60.0 (>45); GLUCOSE, FASTING 157 MG/DL (74-106); MAGNESIUM LEVEL 1.7 MG/DL (1.8-2.4); POTASSIUM SERUM 4.1 MMOL/L (3.5-5.1); SODIUM LEVEL 130 MMOL/L (136-145)
[2023-10-23 15:13] LABS: BASO % 0.7 % (0.0-1.0); EOS % 0.3 % (0.0-3.0); HEMOGLOBIN 12.8 g/dl (12.0-15.5); LYMPH # 1.6 10^3/uL (1.5-5.0); LYMPH % 26.3 % (24.0-44.0); MEAN CORPUSCULAR HEMOGLOBIN 31.7 pg (27.0-33.0); MEAN CORPUSCULAR HGB CONC 35.6 g/dl (32.0-36.5); MEAN CORPUSCULAR VOLUME 89.1 fl (80.0-96.0); MONO # 0.5 10^3/uL (0.0-0.8); MONO % 8.2 % (2.0-8.0); NEUTROPHILS # 3.9 10^3/uL (1.5-8.5); NEUTROPHILS % 64.3 % (36.0-66.0); PLATELET COUNT, AUTOMATED 378 10^3/uL (150-450); RED BLOOD COUNT 4.04 10^6/uL (4.00-5.40); WHITE BLOOD COUNT 6.1 10^3/uL (4.0-10.0)
[2023-10-23 15:14] LABS: THYROID STIMULATING HORMONE 4.167 uIU/ML (0.55-4.78)
[2023-10-23 15:17] LABS: CPK CREATINE PHOSPHOKINASE 57 U/L (34-145); MB/CK RELATIVE INDEX 1.75 (< OR =4)
[2023-10-23] MEDS ORDERED: FLUO10CA18 PO (15:41)
[2023-10-23] MEDS ORDERED: ROPI5TAB19 PO (15:41)
[2023-10-23] MEDS ORDERED: THERTAB52 PO (19:46)
[2023-10-23] MEDS ORDERED: VITA200012 PO (19:46)
[2023-10-23] MEDS ORDERED: LEVO75TA4 PO (19:46)
[2023-10-23] MEDS ORDERED: MELA10TA2 PO (19:50)
[2023-10-23] MEDS ORDERED: HOME MED LIST COMPLETE! XX SCH (19:50)
[2023-10-23] MEDS: MAG SULF 1GM/100ML (MAG RUN) 1 GM in IV 1 EA IV ONE (20:48)
[2023-10-23] MEDS ORDERED: tiZANidine 4 MG TAB PO PRN (22:05)
[2023-10-23] MEDS ORDERED: EPINEPHrine INJ 1 MG/ML 1ML AMP SC PRN (22:05)
[2023-10-23] MEDS: rOPINIRole 0.25 MG TAB(REQUIP) PO SCH (22:59)
[2023-10-23] MEDS: GABAPENTIN 300 MG CAP PO SCH (22:59)
[2023-10-23] MEDS: LACTATED RINGER'S 1000 ML IV ONE (22:59)
[2023-10-23] MEDS ORDERED: DEXTROSE 50% 50ML SYRINGE IV PRN (23:20)
[2023-10-23] MEDS ORDERED: GLUCAGON INJ 1MG VIAL SC PRN (23:20)
[2023-10-23] MEDS ORDERED: GLUCOSE 4GM CHEW TABLET PO PRN (23:20)
[2023-10-24] VITALS (9 sets, daily range): BP systolic 145–180; BP diastolic 58–96; TEMP 96.2–97.7; O2SAT 94–98
[2023-10-24] MEDS: hydrALAZINE 20MG/ML 1ML VIAL IV STA (00:41)
[2023-10-24 05:38] LABS: HEMOGLOBIN A1c 4.7 % (4.0-6.0)
[2023-10-24 05:55] LABS: BLOOD UREA NITROGEN < 5 MG/DL (9-23); CALCIUM LEVEL 8.9 MG/DL (8.3-10.6); CARBON DIOXIDE LEVEL 29 MMOL/L (20-31); CHLORIDE LEVEL 107 MMOL/L (98-107); CREATININE FOR GFR 0.72 MG/DL (0.55-1.30); GLOMERULAR FILTRATION RATE > 60.0 (>45); GLUCOSE, FASTING 100 MG/DL (74-106); MAGNESIUM LEVEL 2.2 MG/DL (1.8-2.4); POTASSIUM SERUM 5.1 MMOL/L (3.5-5.1); SODIUM LEVEL 136 MMOL/L (136-145)
[2023-10-24] MEDS ORDERED: LEVOTHYROXINE 75MCG TABLET (0.075MG) PO SCH (06:00)
[2023-10-24] MEDS ORDERED: SYNT75TA PO (06:19)
[2023-10-24] MEDS: LEVOTHYROXINE 75MCG TABLET (0.075MG) PO SCH (06:20)
[2023-10-24] MEDS: ACETAMINOPHEN TAB 650MG DOSE (2X325MG) PO PRN (06:23)
[2023-10-24] MEDS: amLODIPine 5 MG TAB PO SCH (08:22)
[2023-10-24] MEDS: FLUoxetine 10 MG CAP PO SCH (08:22)
[2023-10-24 09:03] LABS: HEMATOCRIT 39.1 % (36.0-47.0); HEMOGLOBIN 13.2 g/dl (12.0-15.5); MEAN CORPUSCULAR HEMOGLOBIN 30.9 pg (27.0-33.0); MEAN CORPUSCULAR HGB CONC 33.8 g/dl (32.0-36.5); MEAN CORPUSCULAR VOLUME 91.6 fl (80.0-96.0); PLATELET COUNT, AUTOMATED 396 10^3/uL (150-450); RED BLOOD COUNT 4.27 10^6/uL (4.00-5.40); WHITE BLOOD COUNT 4.7 10^3/uL (4.0-10.0)
[2023-10-24] MEDS ORDERED: AMLO1TAB25 PO (10:59)
[2023-10-24] MEDS ORDERED: AMLO1TAB24 PO (11:15)
== END 2023-10-24 12:38 | disposition home or self-care (01) ==
LOC: M ED 13:23 → EDBD 13:23 → M ED INP 20:36 → M PCU 10-24 00:02
PROVIDERS: ADMIT Internal Medicine; ATTEND Internal Medicine
DX: R55 Syncope and collapse (principal); I10 Essential (primary) hypertension; E87.1 Hypo-osmolality and hyponatremia; E83.42 Hypomagnesemia; E11.9 Type 2 diabetes mellitus without complications; E03.9 Hypothyroidism, unspecified; R65.10 Systemic inflammatory response syndrome (SIRS) of non-infectious origin without acute organ dysfunction; F41.9 Anxiety disorder, unspecified; F32.A Depression, unspecified; J39.3 Upper respiratory tract hypersensitivity reaction, site unspecified; J45.909 Unspecified asthma, uncomplicated; L20.9 Atopic dermatitis, unspecified; G25.81 Restless legs syndrome; Z79.899 Other long term (current) drug therapy; Z88.5 Allergy status to narcotic agent; Z91.010 Allergy to peanuts; Z91.018 Allergy to other foods; Z91.030 Bee allergy status
CPT/HCPCS: 36415; 70450; 71045; 80048; 82550; 82553; 83036; 83735; 84443; 84484; 85025; 85027; 87635; 93005; 93041; 93306; 94760; 96361; 96374; 96375; 99285; J0360; J3475

== ENCOUNTER → 2023-10-24 | Outpatient (CLI) | payer BC, OTHER ==
[~2023-10-24] MED LIST changes: +AMLO1TAB24 PO; +AMLO1TAB25 PO; +FLUO10CA18 PO; +LEVO75TA4 PO; +MELA10TA2 PO; +ROPI5TAB19 PO; +SYNT75TA PO; +THERTAB52 PO; +VITA200012 PO
== END ==
LOC: M EKG 12:41
PROVIDERS: ATTEND Internal Medicine
DX: R55 Syncope and collapse (principal)

== ENCOUNTER 2023-12-25 09:56 | Day surgery (SDC) | payer BC ==
[~2023-12-25] VITALS: Ht 162.6 cm; Wt 59.9 kg
[~2023-12-25 09:56] MED LIST changes: +DUPI200I SC; +FLUO-290 PO; -FLUO10CA18 PO; +LISI10TA22 PO
[2023-12-25] MEDS ORDERED: LR 1,000 ML IV SCH (10:15)
[2023-12-25] MEDS ORDERED: fentaNYL 100 MCG/2 ML INJECTION As Ordered ONE (13:17)
[2023-12-25] MEDS ORDERED: propofoL 200 MG/20 ML VIAL As Ordered ONE (13:17)
[2023-12-25] MEDS: LIDOCAINE 1% SDV 30ML VIAL As Ordered ONE (13:35)
[2023-12-25] MEDS: ceFAZolin 2 GM/D5W 50 ML IV BAG As Ordered ONE (13:35)
[2023-12-25 14:06] VITALS: BP 128/71; TEMP 97.6; O2SAT 98
== END 2023-12-25 14:25 | disposition home or self-care (01) ==
LOC: M SDC 09:56
PROVIDERS: ATTEND Internal Medicine Cardiovascular Disease
DX: R55 Syncope and collapse (principal); Z82.41 Family history of sudden cardiac death; E11.9 Type 2 diabetes mellitus without complications; Z91.018 Allergy to other foods; Z91.030 Bee allergy status; Z88.5 Allergy status to narcotic agent; Z79.899 Other long term (current) drug therapy
CPT/HCPCS: 33285; C1764; J0690; J3010

== ENCOUNTER → 2024-05-14 | Outpatient (REF) | payer OTHER | LOC: M LAB REF 17:06 | PROVIDERS: ATTEND Nurse Practitioner Adult Health | DX: N39.0 Urinary tract infection, site not specified (principal) ==

== ENCOUNTER → 2024-05-26 | Outpatient (REF) | payer OTHER ==
[~2024-05-26] MED LIST changes: +GABA-1172 PO; -GABA-282 PO
== END ==
LOC: M LAB REF 17:02
PROVIDERS: ATTEND Nurse Practitioner Adult Health
DX: R30.0 Dysuria (principal)

== ENCOUNTER → 2024-08-04 | Outpatient (CLI) | payer BC | LOC: M WHC 07:36 | PROVIDERS: ATTEND Family Medicine | DX: Z12.31 Encounter for screening mammogram for malignant neoplasm of breast (principal) ==

== ENCOUNTER → 2025-07-30 | Outpatient (RCR) ==
[~2025-07-30] MED LIST changes: -VITA500T17 PO; +VITA500T8 PO
== END ==
LOC: M EMPSSV 06-29 07:52
PROVIDERS: ATTEND Family Medicine
DX: Z20.828 Contact with and (suspected) exposure to other viral communicable diseases (principal)

== ENCOUNTER → 2025-08-12 | Outpatient (CLI) | payer BC | LOC: M WHC 14:17 | PROVIDERS: ATTEND Nurse Practitioner Adult Health | DX: Z12.31 Encounter for screening mammogram for malignant neoplasm of breast (principal); M81.0 Age-related osteoporosis without current pathological fracture ==